=== PATIENT | female | born 1995 | race Caucasian/White ===

== ENCOUNTER 2025-04-14 15:17 | Outpatient (CLI) | payer BC, SELFPAY ==
--- OUTSIDE RECORDS SUMMARY | 2025-04-14 15:27 | XMS RPT_ITS | CCD ---
Author Organization [facility] Care Team Providers Care Wharfmaster Name Role Phone Unavailable Primary Care Provider NATASHA Gilliland MD Primary Care Physician NATASHA VARGAS MD Attending Unavailable NATASHA VARGAS MD Primary Care Unavailable Unavailable Primary Care Provider UnavailJOHANNA Peters Attending Unavailable KRISTIN POLLOCK Referring Unavailable IKE KRISTIN Referring Unavailable POLLOCK KRISTIN Attending Unavailable JOHANNA PAZ Attending Unavailable HENRY SAUCEDA Attending Unavailable POLLOCK, KRISTIN Attending Unavailable IKE, KRISTIN Referring Unavailable JOHANNA PAZ Attending Unavailable VENANCIO POLLOCKSSICA Attending Unavailable POLLOCK KRISTIN Referring Unavailable POLLOCK, KRISTIN Referring Unavailable POLLOCK, KRISTIN Attending Unavailable POLLOCK, KRISTIN Attending Unavailable POLLOCK, KRISTIN Referring Unavailable Medications Current Medications Medication Drug Class(es) Dates Sig (Normalized) Sig (Original) aspirin 81 mg delayed release oral tablet (15 sources) Platelet Aggregation Inhibitor, Nonsteroidal Anti-inflammatory Drug Start: 08-31-2024 take 1 tablet by mouth once daily escitalopram 10 mg oral tablet (1 source) Serotonin Reuptake Inhibitor Start: 01-12-2022 Lexapro 10 mg oral tablet Dose : 10 mg = 1 tab(s), Oral, qDay, # 30 tab(s), 5 Refill(s), Pharmacy: [facility]/pharmacy #[id number], OCD (obsessive compulsive disorder), 170, cm, 01/12/22 9:27:00 EDT, Height Start Date: 01/12/22 Status: Ordered Ibuprofen (1 source) Nonsteroidal Anti-inflammatory Drug Start: 01-12-2022 ibuprofen if needed for pain, 0 Refill(s) Start Date: 01/12/22 Status: Ordered PNV24/Iron Cbn&Gluc/FA/DSS/Dha (PRENATE ORAL) (15 sources) take 1 tablet by mouth once daily PNV24/Iron Cbn&Gluc/FA/DSS/ Dha (PRENATE ORAL) Take 1 tablet by mouth once daily. Active potassium chloride 20 meq extended release oral tablet (1 source) Start: 12-01-2024 take 1 tablet by mouth once daily potassium chloride 20 mEq TbER Take 1 tablet by mouth once daily. 3 tablet 12/01/2024 Active Completed/Discontinued Medications Medication Drug Class(es) Dates Sig (Normalized) Sig (Original) benzonatate 200 mg oral capsule (2 sources) Non-narcotic Antitussive Start: 06-22-2020 End: 11-09-2021 take 1 capsule by mouth three times daily as needed for cough Benzonatate 200 mg capsule Indications: Viral URI with cough Take 1 capsule by mouth three times daily as needed for Cough. 30 capsule 0 06/22/2020 11/09/2021 Discontinued (Course of therapy completed) Comment on above: Take 1 capsule by [facility] three times daily as needed for Cough. famotidine 20 mg oral tablet (3 sources) Histamine-2 Receptor Antagonist Start: 10-01-2024 End: 10-26-2024 take 1 tablet by mouth twice daily famotidine (PEPCID) 20 mg tablet Take 1 tablet by mouth two times a day. 60 tablet 1 10/01/2024 10/26/2024 Discontinued (Course of therapy completed) predniSONE 20 mg oral tablet (1 source) Start: 06-22-2020 End: 06-27-2020 take 2 tablets by mouth once daily predniSONE (DELTASONE) 20 mg tablet Indications: Viral URI with cough Take 2 tablets by mouth once daily for 5 days. 10 tablet 0 06/22/2020 06/27/2020 Active Comment on above: Take 2 tablets by mo [facility] once daily for 5 days. triamcinolone acetonide 0.47524 mg/mg topical ointment (1 source) Corticosteroid Start: 05-10-2023 End: 08-31-2024 triamcinolone (KENALOG) 0.025 % ointment Apply to affected area two times a day. For 14-30 days then PRN for discomfort 15 g 1 05/10/2023 08/31/2024 Discontinued (Course of therapy completed) Problems Active Problems Problem Classification Problem Date Documented Date Episodic/Chronic Abdominal pain (2 sources) Right lower quadrant pain; Translations: [Right lower quadrant pain] Onset: 11-30-2024 11-30-2024 Episodic Anxiety disorders (20 sources) Anxiety; Translations: [Obsessive-compulsive disorder] Onset: 01-10-2022 01-12-2022 Chronic Esophageal disorders (3 sources) Gastroesophageal reflux disease; Translations: [Gastro-esophageal reflux disease without esophagitis] Onset: 01-10-2022 09-01-2021 Chronic Immunizations and screening for infectious disease (6 sources) Patient encounter status; Translations: [Encounter for screening for infections with a predominantly sexual mode of transmission] Episodic Malaise and fatigue (2 sources) Other fatigue; Translations: [Other fatigue] Onset: 01-10-2022 Episodic Other complications of (4 sources) Gestational age unknown ; Translations: [Encounter for supervision of normal , unspecified, unspecified trimester] 08-31-2024 Episodic Other complications of (13 sources) RhD negative; Translations: [Other specified related conditions, second trimester] Onset: 10-06-2024 10-06-2024 Episodic Other complications of (1 source) Other specified related conditions, unspecified trimester; Translations: [Rh negative state in antepartum period (HCC)] Onset: 01-18-2025 Episodic Other female genital disorders (15 sources) Dyspareunia; Translations: [Other specified dyspareunia] Onset: 05-07-2023 05-07-2023 Chronic Other nutritional; endocrine; and metabolic disorders (2 sources) Abnormal weight gain; Translations: [Abnormal weight gain] Onset: 01-10-2022 Episodic Other and delivery including normal (20 sources) Normal ; Translations: [Encounter for supervision of normal first , first trimester] Onset: 08-31-2024 08-31-2024 Episodic Other screening for suspected conditions (not mental disorders or infectious disease) (4 sources) Cancer cervix screening status; Translations: [Encounter for screening for malignant neoplasm of cervix] Onset: 10-01-2024 Episodic Other skin disorders (2 sources) Nonscarring hair loss, unspecified; Translations: [Nonscarring hair loss, unspecified] Onset: 01-10-2022 Episodic Other upper respiratory infections (1 source) Viral upper respiratory tract infection; Translations: [Viral URI with cough] Episodic Residual codes; unclassified (1 source) Gestation period, 12 weeks; Translations: [12 weeks gestation of ] 10-01-2024 Episodic Residual codes; unclassified (1 source) Gestation period, 15 weeks; Translations: [15 weeks gestation of ] 10-26-2024 Episodic Residual codes; unclassified (2 sources) Gestation period, 19 weeks; Translations: [19 weeks gestation of ] 11-23-2024 Episodic Residual codes; unclassified (1 source) Gestation period, 20 weeks; Translations: [20 weeks gestation of ] 11-30-2024 Episodic Residual codes; unclassified (1 source) Gestation period, 23 weeks; Translations: [23 weeks gestation of ] 12-21-2024 Episodic Residual codes; unclassified (1 source) 32 weeks gestation of ; Translations: [32 weeks gestation of (HCC)] Onset: 02-17-2025 Episodic Residual codes; unclassified (1 source) 29 weeks gestation of ; Translations: [29 weeks gestation of (HCC)] Onset: 02-02-2025 Episodic Residual codes; unclassified (1 source) 23 weeks gestation of ; Translations: [23 weeks gestation of (HCC)] Onset: 01-26-2025 Episodic Residual codes; unclassified (2 sources) Unspecified blood type, Rh negative; Translations: [Rh negative state in antepartum period ([facility])] Onset: 10-06-2024 Episodic Residual codes; unclassified (1 source) 20 weeks gestation of ; Translations: [20 weeks gestation of ([facility])] Onset: 11-30-2024 Episodic Residual codes; unclassified (1 source) 19 weeks gestation of ; Translations: [19 weeks gestation of ([facility])] Onset: 11-23-2024 Episodic Unclassified (1 source) Patient encounter status 09-01-2021 Unclassified (15 sources) [facility] Education - COMMON Onset: 08-31-2024 08-31-2024 Unclassified (15 sources) Education - [place] Onset: 08-31-2024 08-31-2024 Past or Other Problems Problem Classification Problem Date Documented Date Episodic/Chronic Genitourinary symptoms and ill-defined conditions (15 sources) Increased frequency of urination; Translations: [Frequency of micturition] Onset: 05-07-2023 Resolved: 10-06-2024 05-07-2023 Episodic Other complications of (1 source) Other specified related conditions, second trimester; Translations: [Rh negative state in antepartum period, second trimester ([facility])] Onset: 10-06-2024 Episodic Other female genital disorders (15 sources) Vaginal discharge; Translations: [Other specified noninflammatory disorders of vagina] Onset: 05-07-2023 Resolved: 08-31-2024 08-31-2024 Episodic Other female genital disorders (15 sources) Pruritus of vagina; Translations: [Other specified noninflammatory disorders of vagina] Onset: 05-07-2023 Resolved: 08-31-2024 08-31-2024 Episodic Residual codes; unclassified (16 sources) Gestation period, 7 weeks; Translations: [Less than 8 weeks gestation of ] Onset: 08-31-2024 Resolved: 10-06-2024 08-31-2024 Episodic Residual codes; unclassified (1 source) 15 weeks gestation of ; Translations: [15 weeks gestation of ([facility])] Onset: 10-26-2024 Episodic Residual codes; unclassified (1 source) 12 weeks gestation of ; Translations: [12 weeks gestation of ([facility])] Onset: 10-01-2024 Episodic Screening and history of mental health and substance abuse codes (20 sources) H/O: depression; Translations: [Personal history of other mental and behavioral disorders] Onset: 08-31-2024 08-31-2024 Episodic Results Test Name Value Interpretation Reference Range Facility [facility] 01-27-2025 CNNURSE Nurse Visit (OBGYWM) LYNETTE NORRIS ([id number]) 1995 F Date Time Provider Department 01/27/25 11:30 AM NURSE [facility] During your visit today, we recorded the following information about you: Blood pressure 128/82 Nan Bass, RN 01/27/2025 11:45 AM Signed Lynette Norris 29 year old is here for her injection of Rhophylac. Lynette Norris Antibody Screen (no units) Date Value 01/26/2025 Negative Lynette Norris is RH Negative Rhophylac was given without incident. See immunizations for details of immunizations administered today. Provider Margoth Arndt MD was present in office at time of injection Lynette Norris was given her Rhophylac pocket card. Nan Bass RN Allergies As of Date: 01/27/2025 (No Known Allergies) Date Reviewed: 01/18/2025 Reviewed by: Nolvia Trejo LPN - Fully Assessed Primary Visit Diagnosis:Rh negative state in antepartum period ([facility]) [O26.899, Z67.91] Prescriptions as of 01/27/2025 - aspirin, enteric coated (ECOTRIN LOW STRENGTH) 81 mg EC tablet Take 1 tablet by mouth once daily. - PNV24/Iron CbnANDGluc/FA/DSS/Dh a (PRENATE ORAL) Take 1 tablet by mouth once daily. Facility-Administere d Medications as of 01/27/2025 - RhoD immune globulin 300 mcg injection (RHOPHYLAC) Problem List As Of Date 01/27/2025 Noted Resolved Urinary frequency [R35.0] 05/07/2023 10/06/2024 Other specified dyspareunia [N94.19] 05/07/2023 Vaginal discharge [N89.8] 05/07/2023 08/31/2024 Vaginal itching [N89.8] 05/07/2023 08/31/2024 Generalized anxiety disorder [F41.1] OCD (obsessive compulsive disorder) [F42.9] History of depression [Z86.59] 08/31/2024 Encounter for supervision of normal i*08/31/2024 7 weeks gestation of ([facility]) [Z3A.01] 08/31/2024 10/06/2024 Rh negative state in antepartum period, second *10/06/2024 Encounter Status:Closed by NAN BASS on 01/27/25 Normal [facility] 01-27-2025 [facility] Telephone (OBGYWM) NORRISLYNETTE COVINGTON ([id number]) 1995 F Date Time Provider Department 01/27/25 NAN MARCANO OBBOLIVARWTio During your visit today, we recorded the following information about you: Nan Bass RN 01/27/2025 8:12 AM Signed Patient coming in today to receive Rhogam as a nurse visit. Please file pending order in CP's absence. Thank you. Nan Bass RN Allergies As of Date: 01/27/2025 (No Known Allergies) Date Reviewed: 01/18/2025 Reviewed by: Nolvia Trejo LPN - Fully Assessed Reason for Visit: Orders [681] Cmt: Rhogam Primary Visit Diagnosis:Rh negative state in antepartum period (HCC) [O26.899, Z67.91] Order(s):RhoD immune globulin 300 mcg injection (RHOPHYLAC)Disp: Rfl: Prescriptions as of 01/27/2025 - aspirin, enteric coated (ECOTRIN LOW STRENGTH) 81 mg EC tablet Take 1 tablet by mouth once daily. - PNV24/Iron CbnANDGluc/FA/DSS/Dh a (PRENATE ORAL) Take 1 tablet by mouth once daily. Facility-Administere d Medications as of 01/27/2025 - RhoD immune globulin 300 mcg injection (RHOPHYLAC) - RhoD immune globulin 300 mcg injection (RHOPHYLAC) Problem List As Of Date 01/27/2025 Noted Resolved Urinary frequency [R35.0] 05/07/2023 10/06/2024 Other specified dyspareunia [N94.19] 05/07/2023 Vaginal discharge [N89.8] 05/07/2023 08/31/2024 Vaginal itching [N89.8] 05/07/2023 08/31/2024 Generalized anxiety disorder [F41.1] OCD (obsessive compulsive disorder) [F42.9] History of depression [Z86.59] 08/31/2024 Encounter for supervision of normal i*08/31/2024 7 weeks gestation of (HCC) [Z3A.01] 08/31/2024 10/06/2024 Rh negative state in antepartum period, second *10/06/2024 Prescriptions ordered this encounter Disp Refills Start End RHO(D) IMMUNE GLOBULIN 1,500 UNIT (3* 01/27/2025 02/26/2025 Route: IM Encounter Status:Closed by NAN BASS on 01/27/25 Normal [facility] CBC panel Auto (Bld)on 01-26 Erythrocyte distribution width (RBC) [Ratio] 12.8 % Normal 11.5-15.0 [facility] Comment on above: Order Comment: Speci larry Type: BLOOD SPECIMENOrdering Facility: [facility] Address: [address] [place] [address] Performed By: #### 5 8410-2 ####[facility] [id number] [place] [address] [place] Hematocrit (Bld) [Volume fraction] 35.8 % Low 36.0-46.0 [facility] Comment on above: Order Comment: Hazel juarez Type: BLOOD SPECIMENOrdering Facility: [facility] Address: [address] [place] [address] Performed By: #### 5 8410-2 ####[facility] [id number] [place] [address] [place] Hemoglobin (Bld) [Mass/Vol] 12.7 g/dL Normal 11.5-15.5 [facility] Comment on above: Order Comment: Hectori larry Type: BLOOD SPECIMENOrdering Facility: [facility] Address: [address] [place] [address] Performed By: #### 5 8410-2 ####[facility] [id number] [place] [address] [place] MCH (RBC) [Entitic mass] 32.3 pg Normal 26.0-34.0 [facility] Comment on above: Order Comment: Speci men Type: BLOOD SPECIMENOrdering Facility: [facility] Address: [address] [place] [address] Performed By: #### 5 8410-2 ####[facility] MIRAMARNCRADHA [id number] [place] [address] [place] MCHC (RBC) [Mass/Vol] 35.5 g/dL Normal 30.5-36.0 [facility] Comment on above: Order Comment: Speci men Type: BLOOD SPECIMENOrdering Facility: [facility] Address: [address] [place] [address] Performed By: #### 5 8410-2 ####[facility] MIRAMARMORYadira [id number] [place] [address] [place] MCV (RBC) [Entitic vol] 91.1 fL Normal 80.0-100.0 [facility] Comment on above: Order Comment: Speci men Type: BLOOD SPECIMENOrdering Facility: [facility] Address: [address] [place] [address] Performed By: #### 5 8410-2 ####[facility]AMARNCCAST[facility] [id number] [place] [address] [place] Nucleated RBC (Bld) [#/Vol] 10*3/uL Normal <0.01 [facility] Comment on above: Order Comment: Speci men Type: BLOOD SPECIMENOrdering Facility: [facility] Address: [address] [place] [address] Performed By: #### 5 8410-2 ####[facility] MIRAMARNCLI [id number] [place] [address] [place] Platelet mean volume (Bld) [Entitic vol] 9.5 fL Normal 9.0-12.7 [facility] Comment on above: Order Comment: Speci men Type: BLOOD SPECIMENOrdering Facility: [facility] Address: [address] [place] [address] Performed By: #### 5 8410-2 ####[facility] BRUCENCLIA [id number] [place] [address] [place] Platelets (Bld) [#/Vol] 218 10*3/uL Normal 150-400 [facility] Comment on above: Order Comment: Speci men Type: BLOOD SPECIMENOrdering Facility: [facility] Address: [address] [place] [address] Performed By: #### 5 8410-2 ####[facility] MIRAMARNCLIA [id number] [place] [address] [place] RBC (Bld) [#/Vol] 3.93 10*6/uL Normal 3.90-5.20 [facility] Comment on above: Order Comment: Speci men Type: BLOOD SPECIMENOrdering Facility: [facility] Address: [address] [place] [address] Performed By: #### 5 8410-2 ####[facility] MIRAMARNCLIA [id number] [place] [address] [place] WBC (Bld) [#/Vol] 9.05 10*3/uL Normal 3.70-11.00 [facility] Comment on above: Order Comment: Speci men Type: BLOOD SPECIMENOrdering Facility: [facility] Address: [address] [place] [address] Performed By: #### 5 8410-2 ####[facility] MIRAMARNCLIA [id number] [place] [address] [place] CNNURSEon 01-26-2025 CNNURSE Nurse Visit (OBGYWM) LYNETTE NORRIS ([id number]) 1995 F Date Time Provider Department 01/26/25 9:00 AM NURSE SURGICAL [facility] OBGYWM During your visit today, we recorded the following information about you: Nan Bass RN 01/26/2025 9:19 AM Signed Lynette Rolando Norris 29 year old is here for her injection of Rhophylac. Patient would like to wait until we have received her Type and Screen results before receiving Rhophylac. Patient had bleeding in her 1st and 2nd trimester. Dr. Arndt sent patient a [employer] message on 01/18/25 stating that if she had been sensitized it wouldn't cause any harm, but there would be no benefit to receiving the Rhophlac. Patient will wait for our call tomorrow and then reschedule nurse visit. Nan Bass RN Allergies As of Date: 01/26/2025 (No Known Allergies) Date Reviewed: 01/18/2025 Reviewed by: Nolvia Trejo LPN - Fully Assessed Reason for Visit: Nurse Visit [792] Cmt: Rhophylac - NOT GIVEN TODAY Primary Visit Diagnosis:Rh negative state in antepartum period (HCC) [O26.899, Z67.91] Prescriptions as of 01/26/2025 - aspirin, enteric coated (ECOTRIN LOW STRENGTH) 81 mg EC tablet Take 1 tablet by mouth once daily. - PNV24/Iron CbnANDGluc/FA/DSS/Dh a (PRENATE ORAL) Take 1 tablet by mouth once daily. Facility-Administere d Medications as of 01/26/2025 - RhoD immune globulin 300 mcg injection (RHOPHYLAC) Problem List As Of Date 01/26/2025 Noted Resolved Urinary frequency [R35.0] 05/07/2023 10/06/2024 Other specified dyspareunia [N94.19] 05/07/2023 Vaginal discharge [N89.8] 05/07/2023 08/31/2024 Vaginal itching [N89.8] 05/07/2023 08/31/2024 Generalized anxiety disorder [F41.1] OCD (obsessive compulsive disorder) [F42.9] History of depression [Z86.59] 08/31/2024 Encounter for supervision of normal i*08/31/2024 7 weeks gestation of (HCC) [Z3A.01] 08/31/2024 10/06/2024 Rh negative state in antepartum period, second *10/06/2024 Encounter Status:Closed by NAN BASS on 01/26/25 Normal [facility] 01-26-2025 CNPN Telephone (OBGYWM) LYNETTE NORRIS ([id number]) 1995 F Date Time Provider Department 01/26/25 HENRY SAUCEDA OBKARON During your visit today, we recorded the following information about you: Nan Bass RN 01/26/2025 8:21 AM Signed Patient is scheduled for a nurse visit for her Rhogam. Can you please file pending order as previous order . Thank you. ALENA Sprague Renee, APRN.CNP 01/26/2025 8:54 AM Signed Filed. ALFRED Mckeon Jennifer, RN 01/26/2025 8:58 AM Signed I apologize, I did not pend both orders. Can you please file. Thank you so much! ALENA Sprague Jennifer, ALENA 01/26/2025 8:58 AM Signed Addended by: NAN BASS on: 01/26/2025 08:58 AM Modules accepted: Ursula Euecda APRN.CNP 01/26/2025 8:59 AM Signed FiledALFRED Cui Renee, APRN.CNP 01/26/2025 8:59 AM Signed Addended by: URSULA PIEDRA on: 01/26/2025 08:59 AM Modules accepted: Orders Allergies As of Date: 01/26/2025 (No Known Allergies) Date Reviewed: 01/18/2025 Reviewed by: Nolvia Trejo LPN - Fully Assessed Reason for Visit: Orders [681] Cmt: Rhogam Primary Visit Diagnosis:28 weeks gestation of (HCC) [Z3A.28] Other Visit Diagnosis:Rh negative state in antepartum period ([facility]) [O26.899, Z67.91] Order(s):THER/PROPH/ DIAG INJ, SC/IM [[id number]] Order #: [id number] RhoD immune globulin 300 mcg injection (RHOPHYLAC)Disp: Rfl: Prescriptions as of 01/26/2025 - aspirin, enteric coated (ECOTRIN LOW STRENGTH) 81 mg EC tablet Take 1 tablet by mouth once daily. - PNV24/Iron CbnANDGluc/FA/DSS/Dh a (PRENATE ORAL) Take 1 tablet by mouth once daily. Facility-Administere d Medications as of 01/26/2025 - RhoD immune globulin 300 mcg injection (RHOPHYLAC) Problem List As Of Date 01/26/2025 Noted Resolved Urinary frequency [R35.0] 05/07/2023 10/06/2024 Other specified dyspareunia [N94.19] 05/07/2023 Vaginal discharge [N89.8] 05/07/2023 08/31/2024 Vaginal itching [N89.8] 05/07/2023 08/31/2024 Generalized anxiety disorder [F41.1] OCD (obsessive compulsive disorder) [F42.9] History of depression [Z86.59] 08/31/2024 Encounter for supervision of normal i*08/31/2024 7 weeks gestation of (HCC) [Z3A.01] 08/31/2024 10/06/2024 Rh negative state in antepartum period, second *10/06/2024 Prescriptions ordered this encounter Disp Refills Start End RHO(D) IMMUNE GLOBULIN 1,500 UNIT (3* 01/26/2025 02/25/2025 Route: IM Encounter Status:Closed by NAN BASS on 01/26/25 Normal [facility] GESTATIONAL GLUCOSE SCREEN, 1-HOUR, 50 GRAM, NON-FASTINGon 01-26-2025 Glucose [Mass/Vol] 86 mg/dL Normal 74-134 [facility] Comment on above: Order Comment: Speci men Type: BLOOD SPECIMENOrdering Facility: [facility] Address: [address] [place] [address] Result Comment: [facility] Congress of Obstetricians and Gynecologists (Dennis/Ritu) guidelines state a gestational diabetes mellitus positive screen is made, in women not previously diagnosed with overt diabetes, when the 1 hr plasma glucose level is equal to or above 140 mg/dL. The [facility] [employer] [facility] recommends a 135 mg/dL cutoff. Performed By: #### G LTGST ####[facility] [id number] [place] [id number] [place] Reagin and Treponema pallidu m IgG and IgM [Interp]on 01-26-2025 T. pallidum IgG+IgM IA Ql (S) Non-Reactive Normal Nonreactive [facility] Comment on above: Order Comment: Speci men Type: BLOOD SPECIMENOrdering Facility: [facility] Address: [address] [place] [address] Performed By: #### 7 3752-8 ####[facility] LABCL[facility] [id number] [place] [address] [place] Reagin+T pallidum IgG+IgM Se rPl-Impon 01-26-2025 Reagin and Treponema pallidum IgG and IgM [Interp] Cannot exclude recent Treponemal infection if specimen collected within 7-10 days after appearance of suspect lesions or 2-3 weeks after an exposure. Clinical correlation is required. Normal [facility] Comment on above: Order Comment: Speci men Type: BLOOD SPECIMENOrdering Facility: [facility] Address: [address] [place] [address] Performed By: #### 7 3752-8 ####[facility] LABCLIA [id number] [place] [address] [place] TYPE + SCREEN PRENATALon ABO A Normal [facility] Comment on above: Order Comment: Speci men Type: BLOOD SPECIMEN Ordering Facility: [facility] Address: [address] [place] [address] Performed By: #### T SPN #### [facility] [facility] CLIA [id number] [address] [place] [address] [place] Rh Nom (Bld) Negative Normal [facility] Comment on above: Order Comment: Speci men Type: BLOOD SPECIMEN Ordering Facility: [facility] Address: [address] [place] [address] Performed By: #### T SPN #### [facility] CLIA [id number] [address] [place] [address] [place] TYPE AND SCREEN EXPIRATION 01/29/2025 23:59 Normal [facility] Comment on above: Order Comment: Speci men Type: BLOOD SPECIMEN Ordering Facility: [facility] Address: [address] [place] [address] Performed By: #### T SPN #### [facility] CLIA [id number] [address] [place] [address] [place] AMYLASEon 11-30-2024 Amylase [Catalytic activity/Vol] 48 U/L 30 - 104 U/L [facility] Amylase SerPl-cCncon 025 Amylase [Catalytic activity/Vol] 48 U/L Normal 30-104 [facility] Comment on above: Order Comment: Speci men Type: BLOOD SPECIMENOrdering Facility: [facility] Address: [address] [place] [address] Performed By: #### 1 798-8, 3040-3 ####[facility] LABCLIA [id number] [place] [address] [place] Amylase [Catalytic activity/ Vol]on 11-30-2024 Interpretation and review of laboratory results Normal [facility] Bacteria Ur Culton Bacteria identified Cx Nom (U) ORGANISM ID: 1 10,000 -<50,000 CFU/ml Normal urogenital butch Normal [facility] Comment on above: Performed By: #### 6 30-4 ####[facility] LABCLIA [id number] [place] [address] [place] CBC W Auto Differential pane l (Bld)on 11-30-2024 Basophils (Bld) [#/Vol] [facility] Basophils/100 WBC (Bld) 0.2 % [facility] Differential cell count method Nom (Bld) Auto [facility] Eosinophils (Bld) [#/Vol] 0.19 10*3/uL [facility] Eosinophils/100 WBC (Bld) 1.8 % [facility] Erythrocyte distribution width (RBC) [Ratio] 13.1 % 11.5 - 15.0 % [facility] Hematocrit (Bld) [Volume fraction] 36.2 % 36.0 - 46.0 % [facility] Hemoglobin (Bld) [Mass/Vol] 12.6 g/dL 11.5 - 15.5 g/dL [facility] Immature granulocytes (Bld) [#/Vol] 0.06 10*3/uL [facility] Immature granulocytes/100 WBC (Bld) 0.6 % [facility] Interpretation and review of laboratory results Abnormal [facility] Lymphocytes (Bld) [#/Vol] 1.93 10*3/uL [facility] Lymphocytes/100 WBC (Bld) 18.1 % [facility] MCH (RBC) [Entitic mass] 31.9 pg 26.0 - 34.0 pg [facility] MCHC (RBC) [Mass/Vol] 34.8 g/dL 30.5 - 36.0 g/dL [facility] MCV (RBC) [Entitic vol] 91.6 fL 80.0 - 100.0 fL [facility] Monocytes (Bld) [#/Vol] 0.94 10*3/uL High [facility] Monocytes/100 WBC (Bld) 8.8 % [facility] Neutrophils (Bld) [#/Vol] 7.53 10*3/uL High [facility] Neutrophils/100 WBC (Bld) 70.5 % [facility] Nucleated RBC (Bld) [#/Vol] NINF [facility] Nucleated RBC/100 WBC (Bld) [Ratio] 0.0 % /100 WBC [facility] Platelet mean volume (Bld) [Entitic vol] 9.4 fL 9.0 - 12.7 fL [facility] Platelets (Bld) [#/Vol] 235 10*3/uL [facility] RBC (Bld) [#/Vol] 3.95 10*6/uL 3.90 - 5.2 0 m/uL [facility] WBC (Bld) [#/Vol] 10.67 10*3/uL [facility] Basophils (Bld) [#/Vol] 10*3/uL Normal <0.11 [facility] Comment on above: Order Comment: Speci men Type: BLOOD SPECIMENOrdering Facility: [facility] Address: [address] [place] [address] Performed By: #### 5 7021-8 ####[facility] [id number] [place] [address] [place] Basophils/100 WBC (Bld) 0.2 % Normal [facility] Comment on above: Order Comment: Speci men Type: BLOOD SPECIMENOrdering Facility: [facility] Address: [address] [place] [address] Performed By: #### 5 7021-8 ####[facility] [id number] [place] [address] [place] Differential cell count method Nom (Bld) Auto Normal [facility] Comment on above: Order Comment: Speci men Type: BLOOD SPECIMENOrdering Facility: [facility] Address: [address] [place] [address] Performed By: #### 5 7021-8 ####[facility] [id number] [place] [address] [place] Eosinophils (Bld) [#/Vol] 0.19 10*3/uL Normal <0.46 [facility] Comment on above: Order Comment: Speci men Type: BLOOD SPECIMENOrdering Facility: [facility] Address: [address] [place] [address] Performed By: #### 5 7021-8 ####[facility] [id number] [place] [address] [place] Eosinophils/100 WBC (Bld) 1.8 % Normal [facility] Comment on above: Order Comment: Speci men Type: BLOOD SPECIMENOrdering Facility: [facility] Address: [address] [place] [address] Performed By: #### 5 7021-8 ####[facility] [id number] [place] [address] [place] Erythrocyte distribution width (RBC) [Ratio] 13.1 % Normal 11.5-15.0 [facility] Comment on above: Order Comment: Speci men Type: BLOOD SPECIMENOrdering Facility: [facility] Address: [address] [place] [address] Performed By: #### 5 7021-8 ####[facility] [id number] [place] [address] [place] Hematocrit (Bld) [Volume fraction] 36.2 % Normal 36.0-46.0 [facility] Comment on above: Order Comment: Speci men Type: BLOOD SPECIMENOrdering Facility: [facility] Address: [address] [place] [address] Performed By: #### 5 7021-8 ####[facility] MIRAMARNCLIA [id number] [place] [address] [place] Hemoglobin (Bld) [Mass/Vol] 12.6 g/dL Normal 11.5-15.5 [facility] Comment on above: Order Comment: Speci men Type: BLOOD SPECIMENOrdering Facility: [facility] Address: [address] [place] [address] Performed By: #### 5 7021-8 ####[facility] MILLTOWNCLIA [id number] [place] [address] [place] Immature granulocytes (Bld) [#/Vol] 0.06 10*3/uL Normal <0.10 [facility] Comment on above: Order Comment: Speci men Type: BLOOD SPECIMENOrdering Facility: [facility] Address: [address] [place] [address] Performed By: #### 5 7021-8 ####[facility]ITALWNCLIA [id number] [place] [address] [place] Immature granulocytes/100 WBC (Bld) 0.6 % Normal [facility] Comment on above: Order Comment: Speci men Type: BLOOD SPECIMENOrdering Facility: [facility] Address: [address] [place] [address] Performed By: #### 5 7021-8 ####[facility] MIRAMARNCLIA [id number] [place] [address] [place] Lymphocytes (Bld) [#/Vol] 1.93 10*3/uL Normal 1.00-4.00 [facility] Comment on above: Order Comment: Speci men Type: BLOOD SPECIMENOrdering Facility: [facility] Address: [address] [place] [address] Performed By: #### 5 7021-8 ####[facility] MILLWNCLIA [id number] [place] [address] [place] Lymphocytes/100 WBC (Bld) 18.1 % Normal [facility] Comment on above: Order Comment: Speci men Type: BLOOD SPECIMENOrdering Facility: [facility] Address: [address] [place] [address] Performed By: #### 5 7021-8 ####[facility] MILLWNCLIA [id number] [place] [address] [place] MCH (RBC) [Entitic mass] 31.9 pg Normal 26.0-34.0 [facility] Comment on above: Order Comment: Speci men Type: BLOOD SPECIMENOrdering Facility: [facility] Address: [address] [place] [address] Performed By: #### 5 7021-8 ####[facility] [id number] [place] [address] [place] MCHC (RBC) [Mass/Vol] 34.8 g/dL Normal 30.5-36.0 [facility] Comment on above: Order Comment: Speci men Type: BLOOD SPECIMENOrdering Facility: [facility] Address: [address] [place] [address] Performed By: #### 5 7021-8 ####[facility] [id number] [place] [address] [place] MCV (RBC) [Entitic vol] 91.6 fL Normal 80.0-100.0 [facility] Comment on above: Order Comment: Speci men Type: BLOOD SPECIMENOrdering Facility: [facility] Address: [address] [place] [address] Performed By: #### 5 7021-8 ####[facility] MIRAMARNCLIA [id number] [place] [address] [place] Monocytes (Bld) [#/Vol] 0.94 10*3/uL High <0.87 [facility] Comment on above: Order Comment: Speci men Type: BLOOD SPECIMENOrdering Facility: [facility] Address: [address] [place] [address] Performed By: #### 5 7021-8 ####[facility] MIRAMARNCLIA [id number] [place] [address] [place] Monocytes/100 WBC (Bld) 8.8 % Normal [facility] Comment on above: Order Comment: Speci men Type: BLOOD SPECIMENOrdering Facility: [facility] Address: [address] [place] [address] Performed By: #### 5 7021-8 ####[facility] [id number] [place] [address] [place] Neutrophils (Bld) [#/Vol] 7.53 10*3/uL High 1.45-7.50 [facility] Comment on above: Order Comment: Speci men Type: BLOOD SPECIMENOrdering Facility: [facility] Address: [address] [place] [address] Performed By: #### 5 7021-8 ####[facility] [id number] [place] [address] [place] Neutrophils/100 WBC (Bld) 70.5 % Normal [facility] Comment on above: Order Comment: Speci men Type: BLOOD SPECIMENOrdering Facility: [facility] Address: [address] [place] [address] Performed By: #### 5 7021-8 ####[facility] [id number] [place] [address] [place] Nucleated RBC (Bld) [#/Vol] 10*3/uL Normal <0.01 [facility] Comment on above: Order Comment: Speci men Type: BLOOD SPECIMENOrdering Facility: [facility] Address: [address] [place] [address] Performed By: #### 5 7021-8 ####[facility] [id number] [place] [address] [place] Nucleated RBC/100 WBC (Bld) [Ratio] 0.0 /100 WBC Normal [facility] Comment on above: Order Comment: Speci men Type: BLOOD SPECIMENOrdering Facility: [facility] Address: [address] [place] [address] [place] [address] Performed By: #### 5 7021-8 ####[facility] DEANGELOA [id number] [place] [address] [place] Platelet mean volume (Bld) [Entitic vol] 9.4 fL Normal 9.0-12.7 [facility] Comment on above: Order Comment: Speci men Type: BLOOD SPECIMENOrdering Facility: [facility] Address: [address] [place] [address] Performed By: #### 5 7021-8 ####[facility] [id number] [place] [address] [place] Platelets (Bld) [#/Vol] 235 10*3/uL Normal 150-400 [facility] Comment on above: Order Comment: Speci men Type: BLOOD SPECIMENOrdering Facility: [facility] Address: [address] [place] [address] Performed By: #### 5 7021-8 ####[facility] MIRAMARNCLIA [id number] [place] [address] [place] RBC (Bld) [#/Vol] 3.95 10*6/uL Normal 3.90-5.20 [facility] Comment on above: Order Comment: Speci men Type: BLOOD SPECIMENOrdering Facility: [facility] Address: [address] [place], [place] [address] Performed By: #### 5 7021-8 ####[facility] MIRAMARMORLIA [id number] [place] [address] [place] WBC (Bld) [#/Vol] 10.67 10*3/uL Normal 3.70-11.00 [facility] Comment on above: Order Comment: Speci men Type: BLOOD SPECIMENOrdering Facility: [facility] Address: [address] [place] [address] Performed By: #### 5 7021-8 ####[facility] [id number] [address] [facility] Ismael 11-30-2024 CNPN Telephone (OBGYWM) NORRISLYNETTE COVINGTON ([id number]) 1995 F Date Time Provider Department 11/30/24 KRISTIN POLLOCK During your visit today, we recorded the following information about you: Ania Clarke RN 11/30/2024 11:33 AM Signed 20w5d Calling c/o RLQ pain. Stated that she has had it in the past and thought it was gas pains because gas-x usually helps. This morning it has not helped and seems worse than before. Does feel like she needs to pass gas at times, but can't. She was able to have small BM this morning though. Hurts worse with palpation and up and moving. Rates 7/10 at it's worse. No fever, bleeding or other concerns. No available appt as of now. Please advise. ALENA Corbett Jessica, APRN.JR 11/30/2024 12:20 PM Signed Can see her at 3pm if that works for her. Thank you, Kristin Pollock APRN.Ania Bob RN 11/30/2024 12:28 PM Signed Patient notified and scheduled. Ania Clarke RN Allergies As of Date: 11/30/2024 (No Known Allergies) Date Reviewed: 11/23/2024 Reviewed by: Prudence Crane MA - Fully Assessed Reason for Visit: Pelvic Pain [282] Prescriptions as of 11/30/2024 - aspirin, enteric coated (ECOTRIN LOW STRENGTH) 81 mg EC tablet Take 1 tablet by mouth once daily. - PNV24/Iron CbnANDGluc/FA/DSS/Dh a (PRENATE ORAL) Take 1 tablet by mouth once daily. Problem List As Of Date 11/30/2024 Noted Resolved Urinary frequency [R35.0] 05/07/2023 10/06/2024 Other specified dyspareunia [N94.19] 05/07/2023 Vaginal discharge [N89.8] 05/07/2023 08/31/2024 Vaginal itching [N89.8] 05/07/2023 08/31/2024 Generalized anxiety disorder [F41.1] OCD (obsessive compulsive disorder) [F42.9] History of depression [Z86.59] 08/31/2024 Encounter for supervision of normal i*08/31/2024 7 weeks gestation of (HCC) [Z3A.01] 08/31/2024 10/06/2024 Rh negative state in antepartum period, second *10/06/2024 Encounter Status:Closed by ANIA CLARKE on 11/30/24 Normal [facility] Comprehensive metabolic 2000 panelOrdered By: Alisa Fitzpatrick on 11-30-2024 Albumin [Mass/Vol] 4.0 g/dL 3.9 - 4.9 g/dL [facility] ALP [Catalytic activity/Vol] 74 U/L 34 - 123 U/L [facility] ALT [Catalytic activity/Vol] 13 U/L 7 - 38 U/L [facility] Anion gap [Moles/Vol] 12 mmol/L 8 - 15 mmol/L [facility] AST [Catalytic activity/Vol] 15 U/L 13 - 35 U/L [facility] Bilirubin [Mass/Vol] 0.3 mg/dL 0.2 - 1 .3 mg/dL [facility] Calcium [Mass/Vol] 9.0 mg/dL 8.5 - 10. 2 mg/dL [facility] Chloride [Moles/Vol] 103 mmol/L 98 - 10 7 mmol/L [facility] CO2 [Moles/Vol] 21 mmol/L Low 22 - 30 mmol/L [facility] Creatinine [Mass/Vol] 0.66 mg/dL 0.58 - 0.96 mg/dL [facility] GFR/1.73 sq M.predicted among non-blacks MDRD (S/P/Bld) [Vol rate/Area] 123 mL/min/{1.73_m2} - PINF [facility] Comment on above: Estimated Glomerular Filtration Rate (eGFR) is calculated using the 202 CKD-EPI creatinine equation. This equation utilizes serum creatinine, sex, and age as parameters. The creatinine assay has traceable calibration to isotope dilution-mass spectrometry. Refer to KDIGO guidelines for clinical interpretation. In patients with unstable renal function, e.g. those with acute kidney injury, the eGFR may not accurately reflect actual GFR. Glucose [Mass/Vol] 80 mg/dL 74 - 99 mg/dL [facility] Comment on above: The [place] Di[employer] Association (ADA) provides guidance for cutoff values for fasting glucose and random glucose. The ADA defines fasting as no caloric intake for at least 8 hours. Fasting plasma glucose results between 100 to 125 mg/dL indicate increased risk for diabetes (prediabetes). Fasting plasma glucose results greater than or equal to 126 mg/dL meet the criteria for diagnosis of diabetes. In the absence of unequivocal hyperglycemia, results should be confirmed by repeat testing. In a patient with classic symptoms of hyperglycemia or hyperglycemic crisis, random plasma glucose results greater than or equal to 200 mg/dL meet the criteria for diagnosis of diabetes. Reference: Standards of Medical Care in Diabetes 2016, [place] [employer]. Diabetes Care. 2016.39(Suppl 1). Interpretation and review of laboratory results Abnormal [facility] Potassium [Moles/Vol] 3.4 mmol/L Low 3.7 - 5.1 mmol/L [facility] Protein [Mass/Vol] 6.9 g/dL 6.3 - 8.0 g/dL [facility] Sodium [Moles/Vol] 136 mmol/L 136 - 144 mmol/L [facility] Urea nitrogen [Mass/Vol] 10 mg/dL 7 - 21 mg/dL [facility] Comprehensive metabolic 2000 panelon 11-30-2024 Albumin [Mass/Vol] 4.0 g/dL Normal 3.9-4.9 [facility] Comment on above: Order Comment: Speci men Type: BLOOD SPECIMENOrdering Facility: [facility] Address: [address] [place] [address] Performed By: #### 2 4323-8 ####[facility] [id number] [place] [address] [place] ALP [Catalytic activity/Vol] 74 U/L Normal 34-123 [facility] Comment on above: Order Comment: Speci men Type: BLOOD SPECIMENOrdering Facility: [facility] Address: [address] [place] [address] Performed By: #### 2 4323-8 ####[facility] MILLTOWNCLIA [id number] [place] [address] [place] ALT [Catalytic activity/Vol] 13 U/L Normal 7-38 [facility] Comment on above: Order Comment: Speci men Type: BLOOD SPECIMENOrdering Facility: [facility] Address: [address] [place] [address] Performed By: #### 2 4323-8 ####[facility]ITALWNCLIA [id number] [place] [address] [place] Anion gap [Moles/Vol] 12 mmol/L Normal 8-15 [facility] Comment on above: Order Comment: Speci men Type: BLOOD SPECIMENOrdering Facility: [facility] Address: [address] [place] [address] Performed By: #### 2 4323-8 ####[facility]IP[facility] HOS[facility]ITALWNCLIA [id number] [place] [address] [place] AST [Catalytic activity/Vol] 15 U/L Normal 13-35 [facility] Comment on above: Order Comment: Speci men Type: BLOOD SPECIMENOrdering Facility: [facility] Address: [address] [place] [address] Performed By: #### 2 4323-8 ####[facility] CH[facility] MILLANSONVILLENCLIA [id number] [place] [address] [place] Bilirubin [Mass/Vol] 0.3 mg/dL Normal 0.2-1.3 [facility] Comment on above: Order Comment: Speci men Type: BLOOD SPECIMENOrdering Facility: [facility] Address: [address] [place] [address] Performed By: #### 2 4323-8 ####[facility] MILLTOWNCLIA [id number] [place] [address] [place] Calcium [Mass/Vol] 9.0 mg/dL Normal 8.5-10.2 [facility] Comment on above: Order Comment: Speci men Type: BLOOD SPECIMENOrdering Facility: [facility] Address: [address] [place] [address] Performed By: #### 2 4323-8 ####[facility] MILLTOWNCLIA [id number] [place] [address] [place] Chloride [Moles/Vol] 103 mmol/L Normal 98-107 [facility] Comment on above: Order Comment: Speci men Type: BLOOD SPECIMENOrdering Facility: [facility] Address: [address] [place] [address] Performed By: #### 2 4323-8 ####[facility] MILLTOWNCLIA [id number] [place] [address] [place] CO2 [Moles/Vol] 21 mmol/L Low 22-30 [facility] Comment on above: Order Comment: Speci men Type: BLOOD SPECIMENOrdering Facility: [facility] Address: [address] [place] [address] Performed By: #### 2 4323-8 ####[facility] MILLTOWNCLIA [id number] [place] [address] [place] Creatinine [Mass/Vol] 0.66 mg/dL Normal 0.58-0.96 [facility] Comment on above: Order Comment: Speci men Type: BLOOD SPECIMENOrdering Facility: [facility] Address: [address] [place] [address] Performed By: #### 2 4323-8 ####[facility] MILLTOWNCLIA [id number] [place] [address] [place] eGFRcr SerPlBld CKD-EPI 2020 123 mL/min/1.73m??? Normal >=60 [facility] Comment on above: Order Comment: Hazel juarez Type: BLOOD SPECIMENOrdering Facility: [facility] Address: [address] [place] [address] Result Comment: Yamilet mated Glomerular Filtration Rate (eGFR) is calculated using the 2020 CKD-EPI creatinine equation. This equation utilizes serum creatinine, sex, and age as parameters. The creatinine assay has traceable calibration to isotope dilution-mass spectrometry. Refer to KDIGO guidelines for clinical interpretation. In patients with unstable renal function, e.g. those with acute kidney injury, the eGFR may not accurately reflect actual GFR. Performed By: #### 2 4323-8 ####[facility] [id number] [place] [address] [place] Glucose [Mass/Vol] 80 mg/dL Normal 74-99 [facility] Comment on above: Order Comment: Hazel juarez Type: BLOOD SPECIMENOrdering Facility: [facility] Address: [address] [place] [address] Result Comment: The [place] Diabetes Association (ADA) provides guidance for cutoff values for fasting glucose and random glucose. The ADA defines fasting as no caloric intake for at least 8 hours. Fasting plasma glucose results between 100 to 125 mg/dL indicate increased risk for diabetes (prediabetes). Fasting plasma glucose results greater than or equal to 126 mg/dL meet the criteria for diagnosis of diabetes. In the absence of unequivocal hyperglycemia, results should be confirmed by repeat testing. In a patient with classic symptoms of hyperglycemia or hyperglycemic crisis, random plasma glucose results greater than or equal to 200 mg/dL meet the criteria for diagnosis of diabetes. Reference: Standards of Medical Care in Diabetes 2016, [place] [employer]. Diabetes Care. 2016.39(Suppl 1). Performed By: #### 2 4323-8 ####[facility] [id number] [place] [address] [place] Potassium [Moles/Vol] 3.4 mmol/L Low 3.7-5.1 [facility] Comment on above: Order Comment: Speci men Type: BLOOD SPECIMENOrdering Facility: [facility] Address: [address] [place] [address] Performed By: #### 2 4323-8 ####[facility] [facility] [id number] [place] [address] [place] Protein [Mass/Vol] 6.9 g/dL Normal 6.3-8.0 [facility] Comment on above: Order Comment: Speci men Type: BLOOD SPECIMENOrdering Facility: [facility] Address: [address] [place] [address] Performed By: #### 2 4323-8 ####[facility] [id number] [place] [address] [place] Sodium [Moles/Vol] 136 mmol/L Normal 136-144 [facility] Comment on above: Order Comment: Speci men Type: BLOOD SPECIMENOrdering Facility: [facility] Address: [address] [place] [address] Performed By: #### 2 4323-8 ####[facility] [id number] [place] [address] [place] Urea nitrogen [Mass/Vol] 10 mg/dL Normal 7-21 [facility] Comment on above: Order Comment: Speci men Type: BLOOD SPECIMENOrdering Facility: [facility] Address: [address] [place] [address] Performed By: #### 2 4323-8 ####[facility] MIRAMARNCLIA [id number] [place] [address] [place] LIPASEon 11-30-2024 Lipase [Catalytic activity/Vol] 14 U/L Low 16 - 61 U/L [facility] Lipase SerPl-cCncon 12-01-19 Lipase [Catalytic activity/Vol] 14 U/L Low 16-61 [facility] Comment on above: Order Comment: Speci men Type: BLOOD SPECIMENOrdering Facility: [facility] Address: [address] [place] [address] Performed By: #### 1 798-8, 3040-3 ####[facility] LABCLIA [id number] [place] [address] [place] Lipase [Catalytic activity/V ol]on 11-30-2024 Interpretation and review of laboratory results Abnormal [facility] No Panel Informationon 11-30 [facility] UA DIP, URINE (POC)on 2024 BILIRUBIN UA (POCT) Negative Negative [facility] CLARITY UA (POCT) Clear [facility] COLOR UA (POCT) Yellow [facility] GLUCOSE UA (POCT) Negative Negative mg/dL [facility] Hemoglobin Ql (U) Negative Negative [facility] Interpretation and review of laboratory results Abnormal [facility] KETONE UA (POCT) Negative Negative mg/dL [facility] LEUKOCYTES UA (POCT) Trace Abnormal Negative [facility] NITRITE UA (POCT) Negative Negative [facility] PH UA (POCT) 7.0 4.5 - 8.0 [facility] Protein Ql (U) Negative Negative mg/dL [facility] SPECIFIC GRAVITY UA (POCT) 1.020 1.005 - 1.030 [facility] UROBILINOGEN UA (POCT) 0.2 Normal E.U./dL [facility] Location:[facility], [address], [place], [place], [id number] [place] [address] POINT OF CARE [facility] Ismael 11-25-2024 CNPN Telephone (OBGYWM) LYNETTE NORRIS ([id number]) 1995 F Date Time Provider Department 11/25/24 KRISTIN POLLOCK During your visit today, we recorded the following information about you: Nan Bass RN 11/25/2024 8:18 AM Signed Received breast pump RX from [employer]. To BERYL to sign. ALENA Sprague Trisha, RN 11/30/2024 3:07 PM Signed Order signed and faxed. Ania Clarke RN Allergies As of Date: 11/25/2024 (No Known Allergies) Date Reviewed: 11/23/2024 Reviewed by: Prudence Crane MA - Fully Assessed Reason for Visit: Breast Pump RX [Other] Prescriptions as of 11/30/2024 - aspirin, enteric coated (ECOTRIN LOW STRENGTH) 81 mg EC tablet Take 1 tablet by mouth once daily. - PNV24/Iron CbnANDGluc/FA/DSS/Dh a (PRENATE ORAL) Take 1 tablet by mouth once daily. Problem List As Of Date 11/25/2024 Noted Resolved Urinary frequency [R35.0] 05/07/2023 10/06/2024 Other specified dyspareunia [N94.19] 05/07/2023 Vaginal discharge [N89.8] 05/07/2023 08/31/2024 Vaginal itching [N89.8] 05/07/2023 08/31/2024 Generalized anxiety disorder [F41.1] OCD (obsessive compulsive disorder) [F42.9] History of depression [Z86.59] 08/31/2024 Encounter for supervision of normal i*08/31/2024 7 weeks gestation of (HCC) [Z3A.01] 08/31/2024 10/06/2024 Rh negative state in antepartum period, second *10/06/2024 Encounter Status:Closed by ANIA CLARKE on 11/30/24 Normal [facility] Examination level ultrasound on 11-23-2024 Indication Standard anatomic survey Impression The patient is referred for a standard anatomic survey. - Single, live, intrauterine . - biometry is consistent with the established gestational age. - No malformations were visualized on a complete standard anatomic survey. - The amniotic fluid volume is normal amount. - The placenta is anterior, fundal. - The Transabdominal cervical length measures 32.5 mm with no evidence of funneling or other dynamic changes. - Not all structural malformations can be detected by ultrasound examination. Recommendations Additional follow-up as clinically indicated. Maternal Assessment Height 170 cm Height (ft) 5 ft Height (in) 7 in Physical Exam Initial weight (lb) 190 lb Initial BMI 29.76 kg/m Maternal assessment other: 1 Para 0 REMOTE READ Method Transabdominal ultrasound examination. View: Adequate visualization Tabares . Number of fetuses: 1 Dating LMP on: 07/08/2024 GA by LMP 19 w + 5 d LEONIDAS by LMP: 04/14/2025 GA by prior assessment 19 w + 5 d LEONIDAS by prior assessment: 04/14/2025 Ultrasound examination on: 11/23/2024 GA by U/S based upon: AC, BPD, Femur, HC GA by U/S 20 w + 4 d LEONIDAS by U/S: 04/08/2025 Assigned: based on stated LEONIDAS, selected on 11/23/2024 Assigned GA 19 w + 5 d Assigned LEONIDAS: 04/14/2025 General Evaluation Cardiac activity present. FHR 143 bpm. movements: present. Presentation: breech Placenta: Placental site: posterior, fundal Umbilical cord: Cord vessels: 3 vessel cord Amniotic fluid: Amount of AF: normal amount. MVP 4.0 cm Growth Overview Exam date GA BPD (mm) HC (mm) AC (mm) FL (mm) HL (mm) EFW (g) 11/23/2024 19w 5d 48.2 83% 181.5 75% 168.3 95% 29.9 47% 29.7 54% 368 90% Biometry Standard BPD 48.2 mm 20w 4d 83% Hadlock OFD 64.7 mm 20w 4d 96% Nicolaides HC 181.5 mm 20w 4d 75% Rosario Cerebellum tr 20.4 mm 19w 4d 62% Hill Nuchal fold 5.0 mm AC 168.3 mm 21w 6d 95% Hadlock Femur 29.9 mm 19w 3d 47% Rosario Humerus 29.7 mm 19w 5d 54% Rosario EFW 368 g 20w 4d 90% Hadlock EFW (lb) 0 lb EFW (oz) 13 oz EFW by: Hadlock (HC-AC-FL) Extended Carboy Filler 6.3 mm CM 3.6 mm 12% Nicolaides Extremities / Bony Struc FL / HC 0.16 <1% Hadlock Other Structures FHR 143 bpm Anatomy Cranium: normal Lateral ventricles: normal Choroid plexus: normal Midline falx: normal Cavum septi pellucidi: normal Cerebellum: normal Cisterna magna: normal Head / Neck Vermis: Normal but not required for a standard anatomy exam Neck: Normal but not required for a standard anatomy exam Nuchal fold: Normal but not required for a standard anatomy exam Lips: normal Profile: Normal but not required for a standard anatomy exam Nose: Normal but not required for a standard anatomy exam Face Maxilla: Normal but not required for a standard anatomy exam Mandible: Normal but not required for a standard anatomy exam Orbits: Normal but not required for a standard anatomy exam Lens: Normal but not required for a standard anatomy exam 4-chamber view: normal RVOT view: normal LVOT view: normal 3-vessel view: normal 7-mjlhln-gguacpd view: normal Heart / Thorax Situs: situs solitus (normal) Aortic arch view: Normal but not required for a standard anatomy exam SVC: Normal but not required for a standard anatomy exam IVC: Normal but not required for a standard anatomy exam Cardiac axis: normal Rt lung: Normal but not required for a standard anatomy exam Lt lung: Normal but not required for a standard anatomy exam Diaphragm: normal Cord insertion: normal Stomach: normal Kidneys: normal Bladder: normal Genitals: normal Abdomen Abdom. wall: normal Cervical spine: normal Thoracic spine: normal Lumbar spine: normal Sacral spine: normal Arms: normal Legs: normal Rt upper arm: normal Rt forearm: normal Rt hand: normal Rt fingers: normal Lt upper arm: normal Lt forearm: normal Lt hand: normal Lt fingers: normal Rt upper leg: normal Rt lower leg: normal Rt foot: normal Lt upper leg: normal Lt lower leg: normal Lt foot: normal sex: male Wants to know sex: yes Maternal Structures Uterus / Cervix Uterus: Visualized Cervix: Visualized Approach: Transabdominal Cervical length 32.5 mm Other: Patient declined transvaginal ultrasound for cervical length. Ovaries / Tubes / Adnexa Rt ovary: Not visualized Lt ovary: Visualized Performed By: Rachael Persaud RDMS, RVT Read By: Daily [place], M.D. MATERNAL MEDICINE [facility] Radiology Study observation (narrative) [facility] Bacteria Ur Culton Bacteria identified Cx Nom (U) ORGANISM ID: 1 10,000 -<50,000 CFU/ml Normal urogenital butch Normal [facility] Comment on above: Performed By: #### 6 30-4 ####[facility] LABCLIA [id number] [address] CNPBenita 10-06-2024 CNPN Telephone (OBGYWM) LYNETTE NORRIS ([id number]) 1995 F Date Time Provider Department 10/06/24 HENRY SAUCEDA OBKARON During your visit today, we recorded the following information about you: Aurea Neville, ALENA 10/06/2024 9:17 AM Signed 12w6d Pt calls stating she had intercourse last evening. Pt states after intercourse-she was peeing and noted light colored blood on toilet paper. Pt then placed a liner on after. Pt woke up this AM and states liner did have some on it. Did have some intermittent light pink spotting this AM as well; However, the last time she went to the bathroom noted none. Denies abdominal pain. Advised Pt to place pad on and monitor at this time. Advised pt that If her bleeding becomes heavy to where she is saturating a pad (front to back, side to side) in one hour or less for two hours or more, she develops shortness of breath, chest pain, dizziness, or abdominal pain to call the office immediately. Advised Pt that healthy guide would be resent -as it does review intercourse in . Advised Pt that it is common to have vaginal spotting (blood) after intercourse, but to continue to monitor at this time, call office with above concerns or any questions she may have, and to avoid intercourse until the spotting resolves. Pt voiced understanding. Please advise if additional guidance needs given-if not, no need to call Pt. Aurea Neville RN Next OB appt scheduled 10/26/24. Margoth Arndt MD 10/06/2024 10:34 AM Signed agree if below. If recurs offer appt. Margoth Arndt MD Allergies As of Date: 10/06/2024 (No Known Allergies) Date Reviewed: 10/01/2024 Reviewed by: Maxwell Guerrero MA - Fully Assessed Prescriptions as of 10/06/2024 - famotidine (PEPCID) 20 mg tablet Take 1 tablet by mouth two times a day. - aspirin, enteric coated (ECOTRIN LOW STRENGTH) 81 mg EC tablet Take 1 tablet by mouth once daily. - PNV24/Iron CbnANDGluc/FA/DSS/Dh a (PRENATE ORAL) Take 1 tablet by mouth once daily. Problem List As Of Date 10/06/2024 Noted Resolved Urinary frequency [R35.0] 05/07/2023 Other specified dyspareunia [N94.19] 05/07/2023 Vaginal discharge [N89.8] 05/07/2023 08/31/2024 Vaginal itching [N89.8] 05/07/2023 08/31/2024 Generalized anxiety disorder [F41.1] OCD (obsessive compulsive disorder) [F42.9] History of depression [Z86.59] 08/31/2024 Encounter for supervision of normal i*08/31/2024 7 weeks gestation of (HCC) [Z3A.01] 08/31/2024 Encounter Status:Closed by NAN BASS on 10/06/24 Normal [facility] Examination level ultrasound on 10-02-2024 Indication First trimester anatomic survey Impression REMOTE READ The patient is referred for a first trimester anatomy scan including nuchal translucency measurement as clinically indicated. - Single, live, intrauterine . - [place] rump length measurement is consistent with the established gestational age. - A qualitative screen of the nuchal translucency and other anatomic structures was unremarkable on a complete first trimester anatomic assessment. - Not all structural malformations can be detected by ultrasound examination. - An anatomic survey at 18-20 weeks is recommended given no identified risk factors. Recommendations - An anatomic survey at 18-20 weeks given no identified risk factors. - Additional follow up as clinically indicated. Maternal Assessment Height 170 cm Height (ft) 5 ft Height (in) 7 in Physical Exam Initial weight (lb) 190 lb Initial BMI 29.76 kg/m Method Transabdominal ultrasound examination Tabares . Number of fetuses: 1 Dating LMP on: 07/08/2024 GA by LMP 12 w + 1 d LEONIDAS by LMP: 04/14/2025 Ultrasound examination on: 10/01/2024 GA by U/S based upon: CRL GA by U/S 12 w + 4 d LEONIDAS by U/S: 04/11/2025 Assigned: based on the LMP, selected on 08/31/2024 Assigned GA 12 w + 1 d Assigned LEONIDAS: 04/14/2025 General Evaluation Cardiac activity present Placenta: right lateral Cord vessels: 3 vessel cord Amniotic fluid: normal amount Biometry Standard FHR 162 bpm CRL 60.5 mm 12w 4d 66% Hadlock First Trimester Anatomy Calvarium: normal Falx cerebri: normal Choroid plexus: normal Profile: normal Nasal bone: normal Retronasal triangle: normal Maxilla: normal Mandible: normal Nuchal translucency: Unremarkable Situs: normal Cardiac position: normal Cardiac axis: normal 4-chamber view: normal 4-chamber view with color: normal 5-[id number]-qqacexn view: normal Abdominal cord insertion: normal Stomach: normal Kidneys: normal Color doppler of renal vessels: normal Bladder: normal Color doppler of perivesical umbilical arteries: normal Vertebral alignment: normal Arms: normal Hands: normal Legs: normal Feet: normal Maternal Structures Uterus / Cervix Uterus: Visualized Ovaries / Tubes / Adnexa Rt ovary: Visualized Rt ovarian corpus luteum: anechoic Rt ovarian corpus luteum D1 30.0 mm Rt ovarian corpus luteum D2 22.0 mm Rt ovarian corpus luteum D3 32.0 mm Lt ovary: Visualized Performed By: Batsheva Gill RDMS Read By: Medina Dewitt M.D. MATERNAL MEDICINE [facility] CBC W Auto Diff [place] 2024 Erythrocyte distribution width (RBC) [Ratio] 12.6 % Normal 11.5-15.0 [facility] Comment on above: Order Comment: Speci men Type: BLOOD SPECIMENOrdering Facility: [facility] Address: [address] [place], [place] [address] Performed By: #### 5 7021-8 ####[facility] MIRAMARNCLIA [id number] [place] [address] [place] [facility] Performed By: #### L [id number] ####[facility] LABCLIA [id number] [place] [address] [place] CBC W Auto Differential pane l (Bld)on 10-01-2024 Basophils (Bld) [#/Vol] 0.03 10*3/uL Normal <0.11 [facility] Comment on above: Order Comment: Speci men Type: BLOOD SPECIMENOrdering Facility: [facility] Address: [address] [place] [address] Performed By: #### 5 7021-8 ####[facility] MIRAMARNCLIA [id number] [place] [address] [place] Basophils/100 WBC (Bld) 0.3 % Normal [facility] Comment on above: Order Comment: Speci men Type: BLOOD SPECIMENOrdering Facility: [facility] Address: [address] [place] [address] Performed By: #### 5 7021-8 ####[facility] MIRAMARNCLIA [id number] [place] [address] [place] Differential cell count method Nom (Bld) Auto Normal [facility] Comment on above: Order Comment: Speci men Type: BLOOD SPECIMENOrdering Facility: [facility] Address: [address] [place] [address] Performed By: #### 5 7021-8 ####[facility] [id number] [place] [address] [place] Eosinophils (Bld) [#/Vol] 0.08 10*3/uL Normal <0.46 [facility] Comment on above: Order Comment: Speci men Type: BLOOD SPECIMENOrdering Facility: [facility] Address: [address] [place] [address] Performed By: #### 5 7021-8 ####[facility] MIRAMARNEYDAA [id number] [place] [address] [place] Eosinophils/100 WBC (Bld) 0.8 % Normal [facility] Comment on above: Order Comment: Speci men Type: BLOOD SPECIMENOrdering Facility: [facility] Address: [address] [place] [address] Performed By: #### 5 7021-8 ####[facility] [id number] [place] [address] [place] Hematocrit (Bld) [Volume fraction] 37.1 % Normal 36.0-46.0 [facility] Comment on above: Order Comment: Speci men Type: BLOOD SPECIMENOrdering Facility: [facility] Address: [address] [place] [address] Performed By: #### 5 7021-8 ####[facility] [id number] [place] [address] [place] Hemoglobin (Bld) [Mass/Vol] 12.7 g/dL Normal 11.5-15.5 [facility] Comment on above: Order Comment: Speci men Type: BLOOD SPECIMENOrdering Facility: [facility] Address: [address] [place] [address] Performed By: #### 5 7021-8 ####[facility] [id number] [place] [address] [place] Immature granulocytes (Bld) [#/Vol] 0.03 10*3/uL Normal <0.10 [facility] Comment on above: Order Comment: Speci men Type: BLOOD SPECIMENOrdering Facility: [facility] Address: [address] [place] [address] Performed By: #### 5 7021-8 ####[facility] CLAUDIOLIA [id number] [place] [address] [place] Immature granulocytes/100 WBC (Bld) 0.3 % Normal [facility] Comment on above: Order Comment: Speci men Type: BLOOD SPECIMENOrdering Facility: [facility] Address: [address] [place] [address] Performed By: #### 5 7021-8 ####[facility] MIRAMARMORYadira [id number] [place] [address] [place] Lymphocytes (Bld) [#/Vol] 1.95 10*3/uL Normal 1.00-4.00 [facility] Comment on above: Order Comment: Speci men Type: BLOOD SPECIMENOrdering Facility: [facility] Address: [address] [place] [address] Performed By: #### 5 7021-8 ####[facility] [id number] [place] [address] [place] Lymphocytes/100 WBC (Bld) 18.3 % Normal [facility] Comment on above: Order Comment: Speci men Type: BLOOD SPECIMENOrdering Facility: [facility] Address: [address] [place] [address] Performed By: #### 5 7021-8 ####[facility] MIRAMARMORRADHA [id number] [place] [address] [place] MCH (RBC) [Entitic mass] 30.4 pg Normal 26.0-34.0 [facility] Comment on above: Order Comment: Speci men Type: BLOOD SPECIMENOrdering Facility: [facility] Address: [address] [place] [address] Performed By: #### 5 7021-8 ####[facility]ENTERLIA [id number] [place] [address] [place] MCHC (RBC) [Mass/Vol] 34.2 g/dL Normal 30.5-36.0 [facility] Comment on above: Order Comment: Speci men Type: BLOOD SPECIMENOrdering Facility: [facility] Address: [address] [place] [address] Performed By: #### 5 7021-8 ####[facility]ITALWNCLIA [id number] [place] [address] [place] MCV (RBC) [Entitic vol] 88.8 fL Normal 80.0-100.0 [facility] Comment on above: Order Comment: Speci men Type: BLOOD SPECIMENOrdering Facility: [facility] Address: [address] [place] [address] Performed By: #### 5 7021-8 ####[facility] [id number] [place] [address] [place] Monocytes (Bld) [#/Vol] 0.94 10*3/uL High <0.87 [facility] Comment on above: Order Comment: Speci men Type: BLOOD SPECIMENOrdering Facility: [facility] Address: [address] [place] [address] Performed By: #### 5 7021-8 ####[facility] MIRAMARNCLI [id number] [place] [address] [place] Monocytes/100 WBC (Bld) 8.8 % Normal [facility] Comment on above: Order Comment: Speci men Type: BLOOD SPECIMENOrdering Facility: [facility] Address: [address] [place], [place] [address] Performed By: #### 5 7021-8 ####[facility] [id number] [place] [address] [place] Neutrophils (Bld) [#/Vol] 7.62 10*3/uL High 1.45-7.50 [facility] Comment on above: Order Comment: Speci men Type: BLOOD SPECIMENOrdering Facility: [facility] Address: [address] [place] [address] Performed By: #### 5 7021-8 ####[facility] VLADISLAVWMORLIA [id number] [address] [place] Neutrophils/100 WBC (Bld) 71.5 % Normal [facility] Comment on above: Order Comment: Speci men Type: BLOOD SPECIMENOrdering Facility: [facility] Address: [address] [place] [address] Performed By: #### 5 7021-8 ####[facility] MIRAMARMORLIA [id number] [place] [address] [place] Nucleated RBC (Bld) [#/Vol] 10*3/uL Normal <0.01 [facility] Comment on above: Order Comment: Speci men Type: BLOOD SPECIMENOrdering Facility: [facility] Address: [address] [place] [address] Performed By: #### 5 7021-8 ####[facility] MIRAMARMORLIA [id number] [place] [address] [place] Nucleated RBC/100 WBC (Bld) [Ratio] 0.0 /100 WBC Normal [facility] Comment on above: Order Comment: Speci men Type: BLOOD SPECIMENOrdering Facility: [facility] Address: [address] [place] [address] Performed By: #### 5 7021-8 ####[facility]ITALWNCLIA [id number] [place] [address] [place] Platelet mean volume (Bld) [Entitic vol] 9.5 fL Normal 9.0-12.7 [facility] Comment on above: Order Comment: Speci men Type: BLOOD SPECIMENOrdering Facility: [facility] Address: [address] [place] [address] Performed By: #### 5 7021-8 ####[facility] [id number] [place] [address] [place] Platelets (Bld) [#/Vol] 247 10*3/uL Normal 150-400 [facility] Comment on above: Order Comment: Speci men Type: BLOOD SPECIMENOrdering Facility: [facility] Address: [address] [place] [address] Performed By: #### 5 7021-8 ####[facility] [id number] [place] [address] [place] RBC (Bld) [#/Vol] 4.18 10*6/uL Normal 3.90-5.20 [facility] Comment on above: Order Comment: Speci men Type: BLOOD SPECIMENOrdering Facility: [facility] Address: [address] [place] [address] Performed By: #### 5 7021-8 ####[facility] [id number] [place] [address] [place] WBC (Bld) [#/Vol] 10.65 10*3/uL Normal 3.70-11.00 [facility] Comment on above: Order Comment: Speci men Type: BLOOD SPECIMENOrdering Facility: [facility] Address: [address] [place] [address] Performed By: #### 5 7021-8 ####[facility] [id number] [place] [address] [place] Examination level ultrasound on 10-01-2024 Radiology Study observation (narrative) [facility] HBV surface Ag Ser Qlon 09-13 HBV surface Ag Ql (S) Negative Normal Negative [facility] Comment on above: Order Comment: Speci men Type: BLOOD SPECIMENOrdering Facility: [facility] Address: [address] [place] [address] Performed By: #### 5 195-3, 52652-9, 33211-3 ####[facility] LABCLIA [id number] [place] [address] [place] HCV Ab Ser Qlon 10-01-2024 HCV Ab Ql (S) Negative Normal Negative [facility] Comment on above: Order Comment: Hazel juarez Type: BLOOD SPECIMENOrdering Facility: [facility] Address: [address] [place] [address] Result Comment: The result suggests no evidence of infection with Hepatitis C virus. Should recent infection be suspected, repeat testing may be considered 4-6 weeks after this draw. Performed By: #### 1 6128-1 ####[facility] LABCLIA [id number] [place] [address] [place] HGB ELECTROPHORESIS FOR EVAL (LAB ORDER)on 10-01-2024 Hemoglobin A (Bld) [Mass fraction] 97.3 % Normal 96.2-98.0 [facility] Comment on above: Order Comment: Hazel juarez Type: BLOOD SPECIMENOrdering Facility: [facility] Address: [address] [place] [address] Performed By: #### H JETHRO, [id number] ####[facility] LABCLIA [id number] [place] [address] [place] Hemoglobin A2 (Bld) [Mass fraction] 2.7 % Normal 2.0-3.1 [facility] Comment on above: Order Comment: Hazel juarez Type: BLOOD SPECIMENOrdering Facility: [facility] Address: [address] [place] [address] Performed By: #### H GBBEBETO, [id number] ####[facility] LABCLIA [id number] [place] [address] [place] Hemoglobin Unsp Elph (Bld) [Mass fraction] No abnormal hemoglobin identified. Normal No abnormal hemoglobin identified. [facility] Comment on above: Order Comment: Hazel [facility] Type: BLOOD SPECIMENOrdering Facility: [facility] Address: [address] [place] [address] Performed By: #### H JETHRO, [id number] ####[facility] LABCLIA [id number] [place] [address] [place] HGB EVALUATION CASCADE INTER Laith 10-01-2024 Hemoglobin pattern (Bld) [Interp] Reviewed by Los Obando MD Normal [facility] Comment on above: Order Comment: Speci men Type: BLOOD SPECIMENOrdering Facility: [facility] Address: [address] [place] [address] Performed By: #### H JETHRO, [id number] ####[facility] LABCLIA [id number] [place] [address] [place] INTERPRETATION (HGB EVAL) Normal [facility] Comment on above: Order Comment: Speci men Type: BLOOD SPECIMENOrdering Facility: [facility] Address: [address] [place] [address] Result Comment: Hemo globins were analyzed by capillary electrophoresis and CBC red cell parameters were reviewed. No abnormal hemoglobin is identified. There is a normal hemoglobin capillary electrophoresis pattern. Performed By: #### Asmita MORELOS, [id number] ####[facility] LABIA [id number] [place] [address] [place] HIV 1+2 Ab IA Qlon 5 HIV 1 and 2 Ab IA.rapid Nom (S/P/Bld) Normal [facility] Comment on above: Order Comment: Speci men Type: BLOOD SPECIMENOrdering Facility: [facility] Address: [address] [place] [address] Result Comment: Test not indicated. Performed By: #### 5 195-3, 76766-4, 42827-5 ####[facility] LABIA [id number] [address] [place] HIV 1+2 Ab+HIV1 p24 Ag IA Ql Non-Reactive Normal Nonreactive [facility] Comment on above: Order Comment: Speci men Type: BLOOD SPECIMENOrdering Facility: [facility] Address: [address] [place] [address] Performed By: #### 5 195-3, 59163-0, 94768-2 ####[facility] LABIA [id number] [place] [address] [place] HIV immunoassay testing algorithm interpretation (S/P/Bld) [Interp] Normal [facility] Comment on above: Order Comment: Speci men Type: BLOOD SPECIMENOrdering Facility: [facility] Address: [address] [place] [address] Result Comment: No e vidence of HIV-1 or HIV-2 infection. Should recent infection be suspected, repeat testing may be considered 2-3 weeks after this draw. [place] Rev. Code 3701.243(E): This information has been disclosed to you from confidential records protected from disclosure by state law. You shall make no further disclosure of this information without the specific, written, and informed release of the individual to whom it pertains or as otherwise permitted by state law. A general authorization for the release of medical or other information is not sufficient for the purpose of the release of HIV test results or diagnoses. Performed By: #### 5 195-3, 95932-1, 69850-5 ####[facility] LABIA [id number] [place] [address] [place] HbA1c (Bld)on 10-01-2024 Average glucose Estimated from glycated hemoglobin (Bld) [Mass/Vol] 88 mg/dL Normal [facility] Comment on above: Order Comment: Speci men Type: BLOOD SPECIMENOrdering Facility: [facility] Address: [address] [place] [address] Result Comment: eAG: (Estimated average glucose) is a calculated value from HgbA1c and is reimbursement representative of the average blood glucose level in the last 2-3 month period. Performed By: #### 5 5454-3 ####[facility] LABCLIA [id number] [place] [address] [place] HbA1c (Bld) [Mass fraction] 4.7 % Normal 4.3-5.6 [facility] Comment on above: Order Comment: Speci men Type: BLOOD SPECIMENOrdering Facility: [facility] Address: [address] [place] [address] Result Comment: Amdionisio ican Diabetes Association guidelines indicate that patients with HgbA1c in the range 5.7-6.4% are at increased risk for development of diabetes, and intervention by lifestyle modification may be beneficial. HgbA1c greater or equal to 6.5% is considered diagnostic of diabetes. Performed By: #### 5 5454-3 ####[facility] LABCLIA [id number] [address] [place] [id number] PLUSon 10-01-2024 Cell-free DNA./Cell-free DNA.total Dosage of chromosome-specific cfDNA (cfDNA) [Molar fraction] 17% Normal [facility] Comment on above: Order Comment: Speci men Type: BLOOD SPECIMENOrdering Facility: [facility] Address: [address] [place] [address] Performed By: #### M AT21 ####[facility] LABCLIA [id number] [place] [address] Chr 13+18+21+X+Y aneuploidy Dosage of chromosome-specific cfDNA Ql (cfDNA) Negative Normal [facility] Comment on above: Order Comment: Speci men Type: BLOOD SPECIMENOrdering Facility: [facility] Address: [address] [place] [address] Performed By: #### M AT21 ####[facility] LABCLIA [id number] [place] [address] Chr 21 trisomy Dosage of chromosome-specific cfDNA Ql (cfDNA) Negative Normal [facility] Comment on above: Order Comment: Speci men Type: BLOOD SPECIMENOrdering Facility: [facility] Address: [address] [place] [address] Performed By: #### M AT21 ####[facility] LABCLIA [id number] [place] [address] Chr X and Y aneuploidy risk Sequencing Ql (cfDNA) [Interp] Not detected Normal [facility] Comment on above: Order Comment: Speci men Type: BLOOD SPECIMENOrdering Facility: [facility] Address: [address] [place] [address] Result Comment: Not Detected Not Detected Performed By: #### M AT21 ####[facility] LABCLIA [id number] [place] [address] Citation George (Reference lab test) Comment Normal [facility] Comment on above: Order Comment: Speci men Type: BLOOD SPECIMENOrdering Facility: [facility] Address: [address] [place] [address] Result Comment: 1. P justus DUMONT, et al. Celsa Med. 2012;14(3):296-305. 2. Jenifer JONES et al. Prenat Diag. 2013;33(6):591-597. 3. Julio C, et al. Clin Chem. 2015 Apr;61(4):608-616. 4. Neetu DUMONT, et al. Celsa Med. 2011;13(11):913-920. 5. ACOG/SMFM Practice Bulletin No. 226, Jan 2020. Performed By: #### M AT21 ####[facility] LABCLIA [id number] [place] [address] Gestational age Estimated from conception date Tabares Normal [facility] Comment on above: Order Comment: Speci men Type: BLOOD SPECIMENOrdering Facility: [facility] Address: [address] [place] [address] Performed By: #### M AT21 ####[facility] LABCLIA [id number] [place] [address] GESTATIONALAGE AGE > OR = 9W Yes Normal [facility] Comment on above: Order Comment: Speci men Type: BLOOD SPECIMENOrdering Facility: [facility] Address: [address] [place] [address] Performed By: #### M AT21 ####[facility] LABCLIA [id number] [place] [address] Laboratory comment George (Report) Comment Normal [facility] Comment on above: Order Comment: Hazel juarez Type: BLOOD SPECIMENOrdering Facility: [facility] Address: [address] [place] [address] Result Comment: The MaterniT(R) 21 PLUS laboratory-developed test (LDT) analyzes circulating cell-free DNA from a maternal blood sample. This test is used for screening purposes and not diagnostic. Clinical correlation is recommended. Validation data on twin pregnancies is limited and the ability of this test to detect aneuploidy in higher multiple gestations has not yet been validated. Performed By: #### M AT21 ####[facility] TechnologiesCLIA [id number] [place] [address] purchasing director name Nom (Provider) Comment Normal [facility] Comment on above: Order Comment: Hazel juarez Type: BLOOD SPECIMENOrdering Facility: [facility] Address: [address] [place] [address] Result Comment: This specimen showed an expected representation of chromosome 21, 18 and 13 material. Clinical correlation is suggested. Comment Dawson Ruiz MD, PhD, Director, [employer] Performed By: #### M AT21 ####[facility] LABCLIA [id number] [place] [address] LIMITATIONS OF THE TEST Comment Normal [facility] Comment on above: Order Comment: Hazel juarez Type: BLOOD SPECIMENOrdering Facility: [facility] Address: [address] [place] [address] Result Comment: Rigo fry the results of these tests are highly reliable, discordant results, including inaccurate sex prediction, may occur due to placental, maternal, or mosaicism or neoplasm; vanishing twin; prior maternal organ transplant; or other causes. These tests are screening tests and not diagnostic; they do not replace the accuracy and precision of diagnosis with CVS or amniocentesis. A patient with a positive test result should be referred for genetic counseling and offered invasive diagnosis for confirmation of test results.[5] The results of this testing, including the benefits and limitations, should be discussed with a qualified healthcare provider. management decisions, including termination of the , should not be based on the results of these tests alone. The healthcare provider is responsible for the use of this information in the management of their patient. Sex chromosomal aneuploidies are not reportable for known multiple gestations. A negative result does not ensure an unaffected nor does it exclude the possibility of other chromosomal abnormalities or defects which are not a part of these tests. An uninformative result may be reported, the causes of which may include, but are not limited to, insufficient sequencing coverage, noise or artifacts in the region, amplification or sequencing bias, or insufficient fraction. These tests are not intended to identify pregnancies at risk for neural tube defects or ventral wall defects. Testing for whole chromosome abnormalities (including sex chromosomes) and for subchromosomal abnormalities could lead to the potential discovery of both and maternal genomic abnormalities that could have major, minor, or no, clinical significance. Evaluating the significance of a positive or a non-reportable result may involve both invasive testing and additional studies on the mother. Such investigations may lead to a diagnosis of maternal chromosomal or subchromosomal abnormalities, which on occasion may be associated with benign or malignant maternal neoplasms. These tests may not accurately identify triploidy, balanced rearrangements, or the precise location of subchromosomal duplications or deletions; these may be detected by diagnosis with CVS or amniocentesis. The ability to report results may be impacted by maternal BMI, maternal weight, maternal systemic lupus erythematosus (SLE) and/or by certain pharmaceutical agents such as low molecular weight heparin (for example: Lovenox(R), Xaparin(R), Clexane(R) and Fragmin(R)). Performed By: #### M AT21 ####[facility] LABDianwobaIA [id number] [place] [address] Monosomy X risk Dosage of chromosome-specific cfDNA Ql (Plasma cell-free+WBC DNA) [Interp] Not detected Normal [facility] Comment on above: Order Comment: Speci men Type: BLOOD SPECIMENOrdering Facility: [facility] Address: [address] [place] [address] Performed By: #### M AT21 ####[facility] LABCLIA [id number] [place] [address] NEGATIVE PREDICTIVE VALUE Note Normal [facility] Comment on above: Order Comment: Speci men Type: BLOOD SPECIMENOrdering Facility: [facility] Address: [address] [place] [address] Result Comment: The Negative Predictive Value (NPV) for trisomy 21, 18, and 13 is greater than 99%. The NPV for SCA and ESS cannot be calculated as SCA and ESS are only reported when an abnormality is detected. Performed By: #### M AT21 ####[facility] LABCLIA [id number] [facility] [address] PERFORMANCE CHARACTERISTICS Note Normal [facility] Comment on above: Order Comment: Speci larry Type: BLOOD SPECIMENOrdering Facility: [facility] Address: [address] [place] [address] Result Comment: ! Sex ! Accuracy: 99.4% ! ! ! ! Region (associated syndrome) ! Est. Sens# ! Est. Spec ! ! ! ! Trisomy 21 (Down Syndrome) ! 99.1% ! 99.9% ! ! ! ! Trisomy 18 (Griffiths Syndrome) ! >99.9% ! 99.6% ! ! ! ! Trisomy 13 (Patau Syndrome) ! 91.7% ! 99.7% ! ! ! ! Sex Chromosome Aneuploidies## ! 96.2% ! 99.7% ! ! ! * As reported in [facility] database [id number] [https://www.ncbi.nlm.nih.gov/dbvar/studies/nstd37/ ] # Estimated Sensitivity. Sensitivity estimated across the observed size distribution of each syndrome [per [facility] database nstd37] and across the range of fractions observed in routine clinical NIPT. Actual sensitivity can also be influenced by other factors such as the size of the event, total sequence counts, amplification bias, or sequence bias. ## Tabares gestation only. Performed By: #### M AT21 ####BioSETIA [id number] [place] [address] POSITIVE PREDICTIVE VALUE N/A Normal [facility] Comment on above: Order Comment: Hazel juarez Type: BLOOD SPECIMENOrdering Facility: [facility] Address: [address] [place] [address] Performed By: #### M AT21 ####[facility] LABCLIA [id number] [place] [address] Reference Lab Test Method Comment Normal [facility] Comment on above: Order Comment: Hazel juarez Type: BLOOD SPECIMENOrdering Facility: [facility] Address: [address] [place] [address] Result Comment: See Notes Circulating cell-free DNA was purified from the plasma component of maternal blood. The extracted DNA was then converted into a genomic DNA library for aneuploidy analysis of chromosomes 21, 18, and 13 via next generation sequencing.[1] Optional findings based on the test order include sex chromosome aneuploidy (SCA)[2], and enhanced sequencing series (ESS)[3], which will only be reported on as an additional finding when an abnormality is detected. SCA testing includes information on X and Y representation, while ESS testing includes deletions in selected regions (22q, 15q, 11q, 8q, 5p, 4p, 1p) and trisomy of chromosomes 16 and 22. Performed By: #### M AT21 ####[facility] LABCLIA [id number] [place] [address] Service comment (Unsp spec) [Interp] Comment Normal [facility] Comment on above: Order Comment: Speci men Type: BLOOD SPECIMENOrdering Facility: [facility] Address: [address] [place] [address] Result Comment: See Notes [employer] is a subsidiary of [employer], using the brand [employer]. This test was developed and its performance characteristics determined by [employer]. It has not been cleared or approved by the Food and Drug Administration. This laboratory is certified under the Clinical Laboratory Improvement Amendments (CLIA) as qualified to perform high complexity clinical laboratory testing and accredited by the [employer] (CAP). If there is future clinical need for adding MaterniT GENOME testing, this specimen will be available until term. [facility] samples will not be retained beyond 60 days. [facility] patients will have to send a new sample for re-sequencing ([facility] Test Code: [id number]). Performed By: #### M AT21 ####[facility] LABCLIA [id number] [place] [address] Sex Dosage of chromosome-specific cfDNA Nom (cfDNA) Comment Normal [facility] Comment on above: Order Comment: Speci men Type: BLOOD SPECIMENOrdering Facility: [facility] Address: [address] [place] [address] Result Comment: Cons istent with Male Performed By: #### M AT21 ####[facility] LABCLIA [id number] [place] [address] Test performance information George (Unsp spec) Comment Normal [facility] Comment on above: Order Comment: Speci men Type: BLOOD SPECIMENOrdering Facility: [facility] Address: [address] [place] [address] Result Comment: The performance characteristics of the MaterniT(R) 21 PLUS laboratory-developed test (LDT) have been determined in a clinical validation study with women at increased risk for chromosomal aneuploidy.[1-4] Performed By: #### M AT21 ####[facility] LABCLIA [id number] [place] [address] Trisomy 13 risk Dosage of chromosome-specific cfDNA Ql (cfDNA) [Interp] Negative Normal [facility] Comment on above: Order Comment: Speci men Type: BLOOD SPECIMENOrdering Facility: [facility] Address: [address] [place] [address] Performed By: #### M AT21 ####[facility] LABCLIA [id number] [place] [address] Trisomy 18 risk Dosage of chromosome-specific cfDNA Ql (Plasma cell-free+WBC DNA) [Interp] Negative Normal [facility] Comment on above: Order Comment: Speci men Type: BLOOD SPECIMENOrdering Facility: [facility] Address: [address] [place] [address] Performed By: #### M AT21 ####[facility] LABCLIA [id number] [place] [address] RBC PARAMETERS FOR HB IDon 0 - Hematocrit (Bld) [Volume fraction] 37.3 % Normal 36.0-46.0 [facility] Comment on above: Order Comment: Speci men Type: BLOOD SPECIMENOrdering Facility: [facility] Address: [address] [place] [address] Performed By: #### L [id number] ####[facility] LABCLIA [id number] [place] [address] [place] Hemoglobin (Bld) [Mass/Vol] 12.5 g/dL Normal 11.5-15.5 [facility] Comment on above: Order Comment: Speci men Type: BLOOD SPECIMENOrdering Facility: [facility] Address: [address] [place] [address] Performed By: #### L [id number] ####[facility] [id number] [place] [address] [place] MCH (RBC) [Entitic mass] 30.0 pg Normal 26.0-34.0 [facility] Comment on above: Order Comment: Speci men Type: BLOOD SPECIMENOrdering Facility: [facility] Address: [address] [place] [address] Performed By: #### L [id number] ####[facility] [id number] [place] [address] [place] MCHC (RBC) [Mass/Vol] 33.5 g/dL Normal 30.5-36.0 [facility] Comment on above: Order Comment: Speci men Type: BLOOD SPECIMENOrdering Facility: [facility] Address: [address] [place] [address] Performed By: #### L [id number] ####[facility] [id number] [place] [address] [place] MCV (RBC) [Entitic vol] 89.7 fL Normal 80.0-100.0 [facility] Comment on above: Order Comment: Speci men Type: BLOOD SPECIMENOrdering Facility: [facility] Address: [address] [place] [address] Performed By: #### L [id number] ####[facility] [id number] [place] [address] [place] RBC (Bld) [#/Vol] 4.16 10*6/uL Normal 3.90-5.20 [facility] Comment on above: Order Comment: Speci men Type: BLOOD SPECIMENOrdering Facility: [facility] Address: [address] [place] [address] Performed By: #### L [id number] ####[facility] LABCLIA [id number] [place] [address] [place] RUBELLA IGG ANTIBODYon 10-01 RUBELLA IGG AB, QUAL Positive Normal Positive [facility] Comment on above: Order Comment: Speci men Type: BLOOD SPECIMENOrdering Facility: [facility] Address: [address] [place] [address] Result Comment: The result suggests recent or past exposure to Rubella virus or history of Rubella vaccination. Positive result may also be seen due to presence of passively-transferred antibodies. Please correlate with patient's history. Performed By: #### R UBIGG ####[facility] LABIA [id number] [place] [address] [place] Reagin and Treponema pallidu m IgG and IgM [Interp]on 10-01-2024 T. pallidum IgG+IgM IA Ql (S) Non-Reactive Normal Nonreactive [facility] Comment on above: Order Comment: Speci men Type: BLOOD SPECIMENOrdering Facility: [facility] Address: [address] [place] [address] Performed By: #### 5 195-3, 30719-8, 14538-8 ####[facility] LABIA [id number] [place] [address] [place] Reagin+T pallidum IgG+IgM Se rPl-Impon 10-01-2024 Reagin and Treponema pallidum IgG and IgM [Interp] Cannot exclude recent Treponemal infection if specimen collected within 7-10 days after appearance of suspect lesions or 2-3 weeks after an exposure. Clinical correlation is required. Normal [facility] Comment on above: Order Comment: Speci men Type: BLOOD SPECIMENOrdering Facility: [facility] Address: [address] [place] [address] Performed By: #### 5 195-3, 18048-3, 02028-8 ####[facility] LABIA [id number] [place] [id number] [place] TYPE + SCREEN PRENATALon ABO A Normal [facility] Comment on above: Order Comment: Speci men Type: BLOOD SPECIMENOrdering Facility: [facility] Address: [address] [place] [address] Performed By: #### T SPN ####CC [facility] BLOOD BANKCLIA [id number] [place] [address] [place] Rh Nom (Bld) Negative Normal [facility] Comment on above: Order Comment: Speci men Type: BLOOD SPECIMENOrdering Facility: [facility] Address: [address] [place] [address] Performed By: #### T SPN ####CC [facility] BLOOD BANKCLIA [id number] [place] [address] [place] TYPE AND SCREEN EXPIRATION 10/04/2024 23:59 Normal [facility] Comment on above: Order Comment: Speci men Type: BLOOD SPECIMENOrdering Facility: [facility] Address: [address] [place] [address] Performed By: #### T SPN ####CC [facility] BLOOD BANKCLIA [id number] [place] [address] [place] BACTERIAL VAGINOSIS NAATon 0 08-31-2024 Lactobacillus crispatus+gasseri+joel senii + Gardnerella vaginalis + Atopobium vaginae rRNA MIKO+probe Ql (Vag fld) Not detected Normal Not detected [facility] Comment on above: Order Comment: Speci men Type: SWABOrdering Facility: [facility] Address: [address] [place] [address] Performed By: #### B VAMP, CVTV ####[facility] LABCLIA [id number] [place] [address] [place] Bacteria Ur Culton Bacteria identified Cx Nom (U) ORGANISM ID: 1 50,000-<100,000 CFU/ml Normal urogenital butch Normal [facility] Comment on above: Performed By: #### 6 30-4 ####[facility] LABIA [id number] [address] [place] C. trachomatis+N. gonorrhoea e DNA MIKO+probe Ql (Unsp spec)on 08-31-2024 C. trachomatis rRNA MIKO+probe Ql (Unsp spec) Not detected Normal Not detected [facility] Comment on above: Order Comment: Speci men Type: SWABOrdering Facility: [facility] Address: [address] [place] [address] Performed By: #### 3 6902-5 ####[facility] LABIA [id number] [address] [place] N. gonorrhoeae rRNA MIKO+probe Ql (Unsp spec) Not detected Normal Not detected [facility] Comment on above: Order Comment: Speci men Type: SWABOrdering Facility: [facility] Address: [address] [place] [address] Performed By: #### 3 6902-5 ####[facility] [id number] [place] [address] [place] BEATRIZ/TRICHOMONAS NAATon 0 08-31-2024 C. glabrata RNA MIKO+probe Ql (Vag fld) Not detected Normal Not detected [facility] Comment on above: Order Comment: Speci men Type: SWABOrdering Facility: [facility] Address: [address] [place] [address] Performed By: #### B VAMP, CVTV ####[facility] [id number] [place] [address] [place] Beatriz sp DNA MIKO+probe Ql (Vag fld) Not detected Normal Not detected [facility] Comment on above: Order Comment: Speci men Type: SWABOrdering Facility: [facility] Address: [address] [place] [address] Result Comment: The Beatriz species group target includes C. albicans, C. tropicalis, C. parapsilosis, and C. dubliniensis. Performed By: #### B VAMP, CVTV ####[facility] LABCLIA [id number] [address] T. vaginalis DNA MIKO+probe Ql (Unsp spec) Not detected Normal Not detected [facility] Comment on above: Order Comment: Speci men Type: SWABOrdering Facility: [facility] Address: [address] [place] [address] Performed By: #### B VAMP, CVTV ####[facility] LABCLIA [id number] [address] [place] POC [employer] RANGER ULTRASOUNDon 09-01-19 25 Indication Viability; confirm cardiac activity Impression Single intrauterine gestational sac, CRL is appropriate for clinical dates, corresponding to LEONIDAS: 04/14/2025 FHR 169 bpm Recommendations Follow up for 1st Trimester Anatomy with Nuchal Translucency as clinically indicated if desired. Method Transvaginal ultrasound examination Tabares . Number of embryos: 1 Dating LMP on: 07/08/2024 GA by LMP 7 w + 5 d LEONIDAS by LMP: 04/14/2025 Ultrasound examination on: 08/31/2024 GA by U/S based upon: CRL GA by U/S 8 w + 2 d LEONIDAS by U/S: 04/10/2025 Assigned: based on the LMP, selected on 08/31/2024 Assigned GA 7 w + 5 d Assigned LEONIDAS: 04/14/2025 Biometry Standard FHR 169 bpm CRL 17.7 mm 8w 2d >99% Hadlock Assessment Gestational sac: visualized Location: intrauterine Yolk sac: visualized Embryo: visualized CRL 17.7 mm 8w 2d >99% Hadlock Cardiac activity: present FHR 169 bpm General Evaluation Cardiac activity present. FHR 169 bpm Performed By: Kristin Pollock CNM Read By: Kristin Pollock CNM MATERNAL MEDICINE [facility] Radiology Study observation (narrative) [facility] TOXOon 01-12-2022 Toxoplasma IgG Interp Not detected Invalid Interpretation Code [facility] ([place]) Comment on above: Performed By: #### F T3, FT4, VIDH, LIPID, GFR, CMP, TSH, FERR #### [place] [address] #### DEX, TOXO, EBV, ASO #### [address] [address] Toxoplasma IgG, Acute Negative Normal Negative [facility] ([place]) Comment on above: Performed By: #### F T3, FT4, VIDH, LIPID, GFR, CMP, TSH, FERR #### [place] [address] #### DEX, TOXO, EBV, ASO #### [place] [address] Toxoplasma IgM Interp Not detected Invalid Interpretation Code [facility] ([place]) Comment on above: Performed By: #### F T3, FT4, VIDH, LIPID, GFR, CMP, TSH, FERR #### [place] [address] #### DEX, TOXO, EBV, ASO #### [place] [address] Toxoplasma IgM, Acute Negative Normal Negative [facility] ([place]) Comment on above: Performed By: #### F T3, FT4, VIDH, LIPID, GFR, CMP, TSH, FERR #### [place] [address] #### DEX, TOXO, EBV, ASO #### [place] [address] ANAon 01-11-2022 Nuclear Ab IF (S) [Titer] 40 {titer} Normal Neg 40 [facility] ([place]) Comment on above: Result Comment: DEX Screen and Titer methodology is an immunofluorescent technique utilizing Hep2 Substrate. Performed By: #### F T3, FT4, VIDH, LIPID, GFR, CMP, TSH, FERR #### [place] [address] #### DEX, TOXO, EBV, ASO #### [place] [address] EBVon 01-11-2022 EBV IgG Negative Normal Negative [facility] ([place]) Comment on above: Result Comment: INTE RPRETATION OF EBV IgG BY EIA: Negative: No detectable EBV IgG antibody. Result does not exclude EBV infection. Positive: EBV IgG antibody detected. Indicative of current or past infection. Equivocal: Equivocal for antibodies to EBV. Repeat testing if still indicated. Performed By: #### F T3, FT4, VIDH, LIPID, GFR, CMP, TSH, FERR #### [place] [address] #### DEX, TOXO, EBV, ASO #### [address] [address] EBV IgM Negative Normal Negative [facility] ([place]) Comment on above: Result Comment: INTE RPRETATION OF EBV IgM BY EIA: Negative: No detectable EBV IgM antibody. Result does not exclude EBV infection. An additional sample should be tested within 5-7 days if early infection is suspected. Positive: EBV IgM antibody detected. May be indicative of current or recent infection. Equivocal: Equivocal for antibodies to EBV. Repeat testing if still indicated. Performed By: #### F T3, FT4, VIDH, LIPID, GFR, CMP, TSH, FERR #### [place] [address] #### DEX, TOXO, EBV, ASO #### [address] [address] .Auto Diffon 01-10-2022 Basophil, Absolute 0.0 10 3/mcL Normal 0.0-0.2 [facility] ([place]) Comment on above: Performed By: #### F T3, FT4, VIDH, LIPID, GFR, CMP, TSH, FERR #### [place] [address] #### DEX, TOXO, EBV, ASO #### [address] [address] Basophils/100 WBC (Bld) 0.3 % Normal 0.0-2.5 [facility] ([place]) Comment on above: Performed By: #### F T3, FT4, VIDH, LIPID, GFR, CMP, TSH, FERR #### [place] [address] #### DEX, TOXO, EBV, ASO #### [address] [address] Eosinophil, Absolute 0.1 10 3/mcL Normal 0.0-0.4 [facility] ([place]) Comment on above: Performed By: #### F T3, FT4, VIDH, LIPID, GFR, CMP, TSH, FERR #### [place] [address] #### DEX, TOXO, EBV, ASO #### [address] [address] Eosinophils/100 WBC (Bld) 2.0 % Normal 0.0-7.0 [facility] ([place]) Comment on above: Performed By: #### F T3, FT4, VIDH, LIPID, GFR, CMP, TSH, FERR #### [place] [address] #### DEX, TOXO, EBV, ASO #### [address] [address] Lymphocyte, Absolute 1.7 10 3/mcL Normal 0.8-3.9 [facility] ([place]) Comment on above: Performed By: #### F T3, FT4, VIDH, LIPID, GFR, CMP, TSH, FERR #### [place] [address] #### DEX, TOXO, EBV, ASO #### [address] [address] Lymphocytes/100 WBC (Bld) 30.5 % Normal 10.0-50.0 [facility] ([place]) Comment on above: Performed By: #### F T3, FT4, VIDH, LIPID, GFR, CMP, TSH, FERR #### [place] [address] #### DEX, TOXO, EBV, ASO #### [address] [address] Monocyte, Absolute 0.6 10 3/mcL Normal 0.2-1.0 [facility] ([place]) Comment on above: Performed By: #### F T3, FT4, VIDH, LIPID, GFR, CMP, TSH, FERR #### [address] [address] #### DEX, TOXO, EBV, ASO #### [address] [address] Monocytes/100 WBC (Bld) 10.3 % Normal 1.7-13.0 [facility] ([place]) Comment on above: Performed By: #### F T3, FT4, VIDH, LIPID, GFR, CMP, TSH, FERR #### [address] [address] #### DEX, TOXO, EBV, ASO #### [address] [address] Neutrophils/100 WBC (Bld) 56.9 % Normal 37.0-80.0 [facility] ([place]) Comment on above: Performed By: #### F T3, FT4, VIDH, LIPID, GFR, CMP, TSH, FERR #### [address] [address] #### DEX, TOXO, EBV, ASO #### [address] [address] .GFRon 01-10-2022 GFR 92 ml/min/1.73sqm Normal [facility] ([place]) Comment on above: Result Comment: GFR Population mean for , Non- Americans Ages 20-29 = 116 mL/min/1.73 sq.m. Ages 30-39 = 107 mL/min/1.73 sq.m. Ages 40-49 = 99 mL/min/1.73 sq.m. Ages 50-59 = 93 mL/min/1.73 sq.m. Ages 60-69 = 85 mL/min/1.73 sq.m. Ages 70+ = 75 mL/min/1.73 sq.m. Chronic Kidney Disease: Less than 60 mL/min/1.73 square meters End Stage Renal Disease: Less than 15 mL/min/1.73 square meters Performed By: #### F T3, FT4, VIDH, LIPID, GFR, CMP, TSH, FERR #### [address] [address] #### DEX, TOXO, EBV, ASO #### [address] [address] GFR Non- 76 ml/min/1.73sqm Normal [facility] ([place]) Comment on above: Result Comment: GFR Population mean for , Non- Americans Ages 20-29 = 116 mL/min/1.73 sq.m. Ages 30-39 = 107 mL/min/1.73 sq.m. Ages 40-49 = 99 mL/min/1.73 sq.m. Ages 50-59 = 93 mL/min/1.73 sq.m. Ages 60-69 = 85 mL/min/1.73 sq.m. Ages 70+ = 75 mL/min/1.73 sq.m. Chronic Kidney Disease: Less than 60 mL/min/1.73 square meters End Stage Renal Disease: Less than 15 mL/min/1.73 square meters Performed By: #### F T3, FT4, VIDH, LIPID, GFR, CMP, TSH, FERR #### [place] [address] #### DEX, TOXO, EBV, ASO #### [address] [address] .NEUABSon 01-10-2022 Neutrophil, Absolute 3.1 10 3/mcL Normal 2.9-6.2 [facility] ([place]) Comment on above: Performed By: #### F T3, FT4, VIDH, LIPID, GFR, CMP, TSH, FERR #### [address] [address] #### DEX, TOXO, EBV, ASO #### [place] [address] ASOon 01-10-2022 ASO 73.8 IU/mL Normal 25.0-250.0 [facility] ([place]) Comment on above: Result Comment: No te - New Reference Range in effect 19 Performed By: #### F T3, FT4, VIDH, LIPID, GFR, CMP, TSH, FERR #### [place] [address] #### DEX, TOXO, EBV, ASO #### [address] [address] CBCon 01-10-2022 Erythrocyte distribution width (RBC) [Ratio] 12.2 % Normal 11.5-14.5 [facility] ([place]) Comment on above: Performed By: #### F T3, FT4, VIDH, LIPID, GFR, CMP, TSH, FERR #### [place] [address] #### DEX, TOXO, EBV, ASO #### [address] [address] Hematocrit (Bld) [Volume fraction] 39.9 % Normal 37.0-47.0 [facility] ([place]) Comment on above: Performed By: #### F T3, FT4, VIDH, LIPID, GFR, CMP, TSH, FERR #### [place] [address] #### DEX, TOXO, EBV, ASO #### [place] [address] Hgb 13.5 G/dL Normal 12.0-16.0 [facility] ([place]) Comment on above: Performed By: #### F T3, FT4, VIDH, LIPID, GFR, CMP, TSH, FERR #### [place] [address] #### DEX, TOXO, EBV, ASO #### [address] [address] MCH (RBC) [Entitic mass] 30.8 pg Normal 27.0-31.2 [facility] ([place]) Comment on above: Performed By: #### F T3, FT4, VIDH, LIPID, GFR, CMP, TSH, FERR #### [place] [address] #### DEX, TOXO, EBV, ASO #### [address] [address] MCHC 33.8 G/dL Normal 33.0-37.0 [facility] ([place]) Comment on above: Performed By: #### F T3, FT4, VIDH, LIPID, GFR, CMP, TSH, FERR #### [address] [address] #### DEX, TOXO, EBV, ASO #### [place] [address] MCV (RBC) [Entitic vol] 91.2 fL Normal 80.0-94.0 [facility] ([place]) Comment on above: Performed By: #### F T3, FT4, VIDH, LIPID, GFR, CMP, TSH, FERR #### [place] [address] #### DEX, TOXO, EBV, ASO #### [place] [address] Platelet 207 10 3/mcL Normal 130-400 [facility] ([place]) Comment on above: Performed By: #### F T3, FT4, VIDH, LIPID, GFR, CMP, TSH, FERR #### [place] [address] #### DEX, TOXO, EBV, ASO #### [place] [address] Platelet mean volume (Bld) [Entitic vol] 8.5 fL Normal 7.4-10.4 [facility] ([place]) Comment on above: Performed By: #### F T3, FT4, VIDH, LIPID, GFR, CMP, TSH, FERR #### [place] [address] #### DEX, TOXO, EBV, ASO #### [place] [address] RBC 4.38 10 6/mcL Normal 4.20-5.40 [facility] ([place]) Comment on above: Performed By: #### F T3, FT4, VIDH, LIPID, GFR, CMP, TSH, FERR #### [place] [address] #### DEX, TOXO, EBV, ASO #### [address] [address] WBC 5.5 10 3/mcL Normal 4.6-10.8 [facility] ([place]) Comment on above: Performed By: #### F T3, FT4, VIDH, LIPID, GFR, CMP, TSH, FERR #### [place] [address] #### DEX, TOXO, EBV, ASO #### [place] [address] CMPon 01-10-2022 Albumin Level 4.3 G/dL Normal 3.5-5.0 [facility] ([place]) Comment on above: Performed By: #### F T3, FT4, VIDH, LIPID, GFR, CMP, TSH, FERR #### [place] [address] #### DEX, TOXO, EBV, ASO #### [place] [address] Albumin/Globulin [Mass ratio] 1.5 {ratio} Normal 1.1-2.5 [facility] ([place]) Comment on above: Performed By: #### F T3, FT4, VIDH, LIPID, GFR, CMP, TSH, FERR #### [place] [address] #### DEX, TOXO, EBV, ASO #### [place] [address] ALP [Catalytic activity/Vol] 70 U/L Normal 40-135 [facility] ([place]) Comment on above: Performed By: #### F T3, FT4, VIDH, LIPID, GFR, CMP, TSH, FERR #### [place] [address] #### DEX, TOXO, EBV, ASO #### [place] [id number] ALT [Catalytic activity/Vol] 20 U/L Normal 14-59 [facility] ([place]) Comment on above: Performed By: #### F T3, FT4, VIDH, LIPID, GFR, CMP, TSH, FERR #### [place] [address] #### DEX, TOXO, EBV, ASO #### [address] [address] AST [Catalytic activity/Vol] 14 U/L Normal 10-40 [facility] ([place]) Comment on above: Performed By: #### F T3, FT4, VIDH, LIPID, GFR, CMP, TSH, FERR #### [place] [address] #### DEX, TOXO, EBV, ASO #### [place] [id number] Bili Total 0.9 mg/dL Normal 0.2-1.0 [facility] ([place]) Comment on above: Result Comment: Use of this assay is not recommended for patients undergoing treatment with eltrombopag due to the potential for falsely elevated results. Performed By: #### F T3, FT4, VIDH, LIPID, GFR, CMP, TSH, FERR #### [place] [address] #### DEX, TOXO, EBV, ASO #### [place] [address] BUN/Creatinine Ratio 14 ratio Normal 7-27 [facility] ([place]) Comment on above: Performed By: #### F T3, FT4, VIDH, LIPID, GFR, CMP, TSH, FERR #### [place] [address] #### DEX, TOXO, EBV, ASO #### [address] [address] Calcium [Mass/Vol] 8.7 mg/dL Normal 8.4-10.2 [facility] ([place]) Comment on above: Performed By: #### F T3, FT4, VIDH, LIPID, GFR, CMP, TSH, FERR #### [place] [address] #### DEX, TOXO, EBV, ASO #### [address] [address] Chloride [Moles/Vol] 102 mmol/L Normal 98-107 [facility] ([place]) Comment on above: Performed By: #### F T3, FT4, VIDH, LIPID, GFR, CMP, TSH, FERR #### [address] [address] #### DEX, TOXO, EBV, ASO #### [place] [address] CO2 [Moles/Vol] 26 mmol/L Normal 22-29 [facility] ([place]) Comment on above: Performed By: #### F T3, FT4, VIDH, LIPID, GFR, CMP, TSH, FERR #### [address] [address] #### DEX, TOXO, EBV, ASO #### [place] [address] Creatinine [Mass/Vol] 0.90 mg/dL Normal 0.55-1.02 [facility] ([place]) Comment on above: Performed By: #### F T3, FT4, VIDH, LIPID, GFR, CMP, TSH, FERR #### [address] [address] #### DEX, TOXO, EBV, ASO #### [address] [address] Electrolyte Balance 11.0 mEq/L Normal 4.0-15.0 [facility] ([place]) Comment on above: Performed By: #### F T3, FT4, VIDH, LIPID, GFR, CMP, TSH, FERR #### [address] [address] #### DEX, TOXO, EBV, ASO #### [place] [address] Globulin 2.9 G/dL Normal [facility] ([place]) Comment on above: Performed By: #### F T3, FT4, VIDH, LIPID, GFR, CMP, TSH, FERR #### [address] [address] #### DEX, TOXO, EBV, ASO #### [address] [address] Glucose [Mass/Vol] 90 mg/dL Normal 70-105 [facility] ([place]) Comment on above: Performed By: #### F T3, FT4, VIDH, LIPID, GFR, CMP, TSH, FERR #### [address] [address] #### DEX, TOXO, EBV, ASO #### [address] [address] Potassium [Moles/Vol] 3.8 mmol/L Normal 3.5-5.1 [facility] ([place]) Comment on above: Performed By: #### F T3, FT4, VIDH, LIPID, GFR, CMP, TSH, FERR #### [place] [address] #### DEX, TOXO, EBV, ASO #### [address] [address] Sodium [Moles/Vol] 139 mmol/L Normal 136-145 [facility] ([place]) Comment on above: Performed By: #### F T3, FT4, VIDH, LIPID, GFR, CMP, TSH, FERR #### [address] [address] #### DEX, TOXO, EBV, ASO #### [address] [address] Total Protein 7.2 G/dL Normal 6.4-8.2 [facility] ([place]) Comment on above: Performed By: #### F T3, FT4, VIDH, LIPID, GFR, CMP, TSH, FERR #### [address] [address] #### DEX, TOXO, EBV, ASO #### [address] [address] Urea nitrogen [Mass/Vol] 13 mg/dL Normal 7-18 [facility] ([place]) Comment on above: Performed By: #### F T3, FT4, VIDH, LIPID, GFR, CMP, TSH, FERR #### [address] [address] #### DEX, TOXO, EBV, ASO #### [address] [address] Kristian 01-10-2022 Ferritin [Mass/Vol] 102.0 ng/mL Normal 8.0-252.0 [facility] ([place]) Comment on above: Performed By: #### F T3, FT4, VIDH, LIPID, GFR, CMP, TSH, FERR #### [address] [address] #### DEX, TOXO, EBV, ASO #### [address] [address] FT3on 01-10-2022 Free T3 [Mass/Vol] 2.68 pg/mL Normal 2.30-4.00 [facility] ([place] Comment on above: Performed By: #### F T3, FT4, VIDH, LIPID, GFR, CMP, TSH, FERR #### [address] [address] #### DEX, TOXO, EBV, ASO #### [address] [address] FT4on 01-10-2022 Free T4 [Mass/Vol] 1.01 ng/dL Normal 0.76-1.46 [facility] ([place] Comment on above: Performed By: #### F T3, FT4, VIDH, LIPID, GFR, CMP, TSH, FERR #### [place] [id number] #### DEX, TOXO, EBV, ASO #### [address] [address] LABORATORYOrdered By: Magali Horton on 01-10-2022 Albumin BCP dye [Mass/Vol] 4.3 G/dL Invalid Interpretation Code 3.5 - 5.0 G/dL AO ADM SS Albumin/Globulin [Mass ratio] 1.5 {ratio} Invalid Interpretation Code 1.1 - 2.5 ratio AO ADM SS ALP [Catalytic activity/Vol] 70 U/L Invalid Interpretation Code 40 - 135 U/L AO ADM SS ALT With P-5'-P [Catalytic activity/Vol] 20 U/L Invalid Interpretation Code 14 - 59 U/L AO ADM SS AST With P-5'-P [Catalytic activity/Vol] 14 U/L Invalid Interpretation Code 10 - 40 U/L AO ADM SS Bilirubin [Mass/Vol] 0.9 mg/dL Invalid Interpretation Code 0.2 - 1.0 mg/dL AO ADM SS Calcium [Mass/Vol] 8.7 mg/dL Invalid Interpretation Code 8.4 - 10.2 mg/dL AO ADM SS Chloride [Moles/Vol] 102 mmol/L Invalid Interpretation Code 98 - 107 mmol/L AO ADM SS Cholesterol [Mass/Vol] 133 mg/dL Invalid Interpretation Code 0 - 200 mg/dL AO ADM SS Cholesterol in HDL [Mass/Vol] 60 mg/dL Invalid Interpretation Code 40 - 60 mg/dL AO ADM SS Cholesterol in LDL [Mass/Vol] 65 mg/dL Invalid Interpretation Code 0 - 130 mg/dL AO ADM SS CO2 [Moles/Vol] 26 mmol/L Invalid Interpretation Code 22 - 29 mmol/L AO ADM SS Creatinine [Mass/Vol] 0.90 mg/dL Invalid Interpretation Code 0.55 - 1.02 mg/dL AO ADM SS Electrolyte Balance 11.0 mEq/L Invalid Interpretation Code 4.0 - 15.0 mEq/L AO ADM SS Ferritin [Mass/Vol] 102.0 ng/mL Invalid Interpretation Code 8.0 - 252.0 ng/mL AO ADM SS Free T3 [Mass/Vol] 2.68 pg/mL Invalid Interpretation Code 2.30 - 4.00 pg/mL AO ADM SS Free T4 [Mass/Vol] 1.01 ng/dL Invalid Interpretation Code 0.76 - 1.46 ng/dL AO ADM SS Globulin 2.9 G/dL Invalid Interpretation Code AO ADM SS Glucose [Mass/Vol] 90 mg/dL Invalid Interpretation Code 70 - 105 mg/dL AO ADM SS Potassium [Moles/Vol] 3.8 mmol/L Invalid Interpretation Code 3.5 - 5.1 mmol/L AO ADM SS Protein [Mass/Vol] 7.2 G/dL Invalid Interpretation Code 6.4 - 8.2 G/dL AO ADM SS Sodium [Moles/Vol] 139 mmol/L Invalid Interpretation Code 136 - 145 mmol/L AO ADM SS Triglyceride [Mass/Vol] 38 mg/dL Invalid Interpretation Code 0 - 150 mg/dL AO ADM SS TSH Qn 1.76 m[IU]/L Invalid Interpretation Code 0.36 - 3.74 mcIU/mL AO ADM SS Urea nitrogen [Mass/Vol] 13 mg/dL Invalid Interpretation Code 7 - 18 mg/dL AO ADM SS Urea nitrogen/Creatinine [Mass ratio] 14 ratio Invalid Interpretation Code 7 - 27 ratio AO ADM SS Vit. D 25-Hydroxy 23.4 ng/mL Invalid Interpretation Code AO ADM SS LABORATORYOrdered By: Desiree Ho on 01-10-2022 Basophil, Absolute 0.0 103/mcL Invalid Interpretation Code 0.0 - 0.2 10^3/mcL AO Workflow SS Basophils/100 WBC (Bld) 0.3 % Invalid Interpretation Code 0.0 - 2.5 % AO Workflow SS Eosinophil, Absolute 0.1 103/mcL Invalid Interpretation Code 0.0 - 0.4 10^3/mcL AO Workflow SS Eosinophils/100 WBC (Bld) 2.0 % Invalid Interpretation Code 0.0 - 7.0 % AO Workflow SS Erythrocyte distribution width (RBC) [Ratio] 12.2 % Invalid Interpretation Code 11.5 - 14.5 % AO Workflow SS Hematocrit (Bld) [Volume fraction] 39.9 % Invalid Interpretation Code 37.0 - 47.0 % AO Workflow SS Hemoglobin (Bld) [Mass/Vol] 13.5 G/dL Invalid Interpretation Code 12.0 - 16.0 G/dL AO Workflow SS Lymphocyte, Absolute 1.7 103/mcL Invalid Interpretation Code 0.8 - 3.9 10^3/mcL AO Workflow SS Lymphocytes/100 WBC (Bld) 30.5 % Invalid Interpretation Code 10.0 - 50.0 % AO Workflow SS MCH (RBC) [Entitic mass] 30.8 pg Invalid Interpretation Code 27.0 - 31.2 pg AO Workflow SS MCHC 33.8 G/dL Invalid Interpretation Code 33.0 - 37.0 G/dL AO Workflow SS MCV (RBC) [Entitic vol] 91.2 fL Invalid Interpretation Code 80.0 - 94.0 fL AO Workflow SS Monocyte, Absolute 0.6 103/mcL Invalid Interpretation Code 0.2 - 1.0 10^3/mcL AO Workflow SS Monocytes/100 WBC (Bld) 10.3 % Invalid Interpretation Code 1.7 - 13.0 % AO Workflow SS Neutrophil, Absolute 3.1 103/mcL Invalid Interpretation Code 2.9 - 6.2 10^3/mcL AO Workflow SS Neutrophils/100 WBC (Bld) 56.9 % Invalid Interpretation Code 37.0 - 80.0 % AO Workflow SS Platelet mean volume (Bld) [Entitic vol] 8.5 fL Invalid Interpretation Code 7.4 - 10.4 fL AO Workflow SS Platelets (Bld) [#/Vol] 207 103/mcL Invalid Interpretation Code 130 - 400 10^3/mcL AO Workflow SS RBC (Bld) [#/Vol] 4.38 106/mcL Invalid Interpretation Code 4.20 - 5.40 10^6/mcL AO Workflow SS WBC (Bld) [#/Vol] 5.5 103/mcL Invalid Interpretation Code 4.6 - 10.8 10^3/mcL AO Workflow SS LABORATORYOrdered By: Desiree Espinoza on 01-10-2022 EBV IgG Negative (01/10/22 11:12 AM) Invalid Interpretation Code Negative AH Auto Viro/Sero SS EBV IgM Negative (01/10/22 11:12 AM) Invalid Interpretation Code Negative Auto Viro/Sero SS Nuclear Ab IF Ql (S) Neg 40 (01/10/22 11:12 AM) Invalid Interpretation Code Neg 40 Man Viro/Sero SS T. gondii IgG IF (S) [Titer] Negative (01/10/22 11:12 AM) Invalid Interpretation Code Negative Man Viro/Sero SS T. gondii IgM IF [Titer] Negative (01/10/22 11:12 AM) Invalid Interpretation Code Negative Man Viro/Sero SS Toxoplasma IgG Interp Antibody not detectedToxo IFA IgG specimens are screened at a 1:16 and 1:64 dilutions according to assay protocol to minimize false positive, polar staining of the substrate organisms. Sera of adults is screened at 1:10 for IGM. Sera of infants and neonates (including cord blood) is screened at a 1:4 dilution for IgM. IgM assays for toxoplasmosis must be evaluated cautiously. The serologic assay is not by itself diagnostic and should be interpreted in light of the patient's clinical condition. T. gondii-specific antibodies may be undetectable in patients who are immunocompromised. A positive IgM result should be repeated with a new specimen and methodology to confirm. The Toxo IgG is most useful for determining prior exposure to T. gondii. (Effective 06/26/17) Invalid Interpretation Code BLANCA Lazo Viro/Sero SS Toxoplasma IgM Interp Not detected Invalid Interpretation Code BLANCA Lazo Viro/Sero SS LABORATORYOrdered By: SYSTEM SYSTEM on 01-10-2022 GFR 92 ml/min/1.73sqm Invalid Interpretation Code AO Chemistry S GFR Non- 76 ml/min/1.73sqm Invalid Interpretation Code AO Chemistry S Streptolysin O Ab Qn 73.8 Int unit/mL Invalid Interpretation Code 25.0 - 250.0 Int unit/mL AH ADM SS LIPIDon 01-10-2022 Cholesterol [Mass/Vol] 133 mg/dL Normal 0-200 [facility] [place] Comment on above: Result Comment: Chol esterol Reference Interval: Less than 200 Desirable 200-239 Borderline high risk 240 and above High risk Performed By: #### F T3, FT4, VIDH, LIPID, GFR, CMP, TSH, FERR #### [address] [address] #### DEX, TOXO, EBV, ASO #### [address] [address] Cholesterol in HDL [Mass/Vol] 60 mg/dL Normal 40-60 [facility] [place] Comment on above: Performed By: #### F T3, FT4, VIDH, LIPID, GFR, CMP, TSH, FERR #### [address] [address] #### DEX, TOXO, EBV, ASO #### [address] [address] Cholesterol in LDL [Mass/Vol] 65 mg/dL Normal 0-130 [facility] [place] Comment on above: Performed By: #### F T3, FT4, VIDH, LIPID, GFR, CMP, TSH, FERR #### [address] [address] #### DEX, TOXO, EBV, ASO #### [address] [address] Triglyceride [Mass/Vol] 38 mg/dL Normal 0-150 [facility] [place] Comment on above: Result Comment: Trig lyceride Reference Interval: Less than 150 Normal 150-199 Borderline high risk 200-499 High risk 500 or higher Very high risk Performed By: #### F T3, FT4, VIDH, LIPID, GFR, CMP, TSH, FERR #### [address] [address] #### DEX, TOXO, EBV, ASO #### [address] [address] TSHon 01-10-2022 TSH Qn 1.76 m[IU]/L Normal 0.36-3.74 [facility] ([place] Comment on above: Performed By: #### F T3, FT4, VIDH, LIPID, GFR, CMP, TSH, FERR #### [place] [id number] #### DEX, TOXO, EBV, ASO #### [place] [address] VIDHon 01-10-2022 Vit. D 25-Hydroxy 23.4 ng/mL Normal [facility] ([place] Comment on above: Result Comment: Inte rpretive Values Based on Total 25(OH) Vitamin D: Deficient <20 ng/mL Insufficient 20 - <30 ng/mL Sufficient 30-100 ng/mL Performed By: #### F T3, FT4, VIDH, LIPID, GFR, CMP, TSH, FERR #### [place] [address] #### DEX, TOXO, EBV, ASO #### [address] [address] Vital Signs Date Time Vital Sign Value Performing Clinician Marco amezcua 12-21-2024 15:24-0400 Body mass index (BMI) [Ratio] 30.71 kg/m2 Kristin Pollock APRN.CNM Work Phone: [facility] 12-21-2024 15:24-0400 Body weight 90.27 kg Kristin Pollock APRN.CNM Work Phone: [facility] 12-21-2024 15:24-0400 Diastolic blood pressure 62 mm[Hg] Kristin Pollock F[employer] STEAMER.CNM Work Phone: [facility] 12-21-2024 15:24-0400 Systolic blood pressure 120 mm[Hg] Kristin Pollock [employer].CNM Work Phone: [facility] 11-30-2024 14:54-0400 Body mass index (BMI) [Ratio] 30.09 kg/m2 Kristin Pollock [employer].CNM Work Phone: [facility] 11-30-2024 14:54-0400 Body weight 88.45 kg Kristin Pollock [employer].CNM Work Phone: [facility] 11-30-2024 14:54-0400 Diastolic blood pressure 66 mm[Hg] Kristin Pollock F[employer] STE[employer]ER.CNM Work Phone: [facility] 11-30-2024 14:54-0400 Systolic blood pressure 118 mm[Hg] Kristin Pollock F[employer]ER.CNM Work Phone: [facility] 11-23-2024 10:24-0400 Body mass index (BMI) [Ratio] 29.94 kg/m2 Kristin Pollock [employer].CNM Work Phone: [facility] 11-23-2024 10:24-0400 Body weight 88 kg Kristin Pollock [employer].CNM Work Phone: [facility] 11-23-2024 10:24-0400 Diastolic blood pressure 58 mm[Hg] Kristin Pollock F[employer] STE[employer]ER.CNM Work Phone: [facility] 11-23-2024 10:24-0400 Systolic blood pressure 102 mm[Hg] Kristin Pollock F[employer] STE[employer]ER.CNM Work Phone: [facility] 10-26-2024 09:54-0400 Body mass index (BMI) [Ratio] 29.16 kg/m2 Kristin Pollock [employer].CNM Work Phone: [facility] 10-26-2024 09:54-0400 Body weight 85.73 kg Kristin Pollock [employer].CNM Work Phone: [facility] 10-26-2024 09:54-0400 Diastolic blood pressure 64 mm[Hg] Kristin Pollock F[employer] STE[employer]ER.CNM Work Phone: [facility] 10-26-2024 09:54-0400 Systolic blood pressure 106 mm[Hg] Kristin Pollock F[employer]ER.CNM Work Phone: [facility] 10-01-2024 15:08-0400 Body mass index (BMI) [Ratio] 29.32 kg/m2 Johanna Plotluzmaria [employer]ER.CNM Work Phone: [facility] 10-01-2024 15:08-0400 Body weight 86.18 kg Johanna Plotluzmaria [employer]ER.CNM Work Phone: [facility] 10-01-2024 15:08-0400 Diastolic blood pressure 62 mm[Hg] Johanna Plotluzmaria F[employer] STEAMER.CNM Work Phone: [facility] 10-01-2024 15:08-0400 Systolic blood pressure 114 mm[Hg] Johanna Plotluzmaria F[employer] STEAMER.CNM Work Phone: [facility] 08-31-2024 08:52-0400 Body height 171.5 cm Kristin Pollock [employer].CNM Work Phone: [facility] 08-31-2024 08:52-0400 Body mass index (BMI) [Ratio] 29.38 kg/m2 Kristin Pollock [employer]ER.CNM Work Phone: [facility] 08-31-2024 08:52-0400 Body weight 86.36 kg Kristin Pollock [employer].CNM Work Phone: [facility] 08-31-2024 08:52-0400 Diastolic blood pressure 68 mm[Hg] Kristin Pollock F[employer] STE[employer]ER.CNM Work Phone: [facility] 08-31-2024 08:52-0400 Systolic blood pressure 120 mm[Hg] Kristin Pollock F[employer]ER.CNM Work Phone: [facility] 11-09-2021 14:06-0400 Body height 172.7 cm Kristin Pollock APRN.CNTio Work Phone: [facility] 11-09-2021 14:06-0400 Body weight 81.65 kg Kristin Pollock APRN.CNM Work Phone: [facility] 11-09-2021 14:06-0400 Diastolic blood pressure 62 mm[Hg] Kristin Pollock APRN.CNTio Work Phone: [facility] 11-09-2021 14:06-0400 Systolic blood pressure 120 mm[Hg] Kristin Pollock APRN.CNM Work Phone: [facility] 06-22-2020 14:52-0500 Body Temperature 97.59 [degF] [facility] 06-22-2020 14:52-0500 Body weight 79.02 kg Bety [facility] 06-22-2020 14:52-0500 BP Diastolic 61 mm[Hg] Bety [facility] 06-22-2020 14:52-0500 BP Systolic 111 mm[Hg] Bety [facility] 06-22-2020 14:52-0500 Pulse (Heart Rate) 61 /min [facility]ety [facility] cecelia 06-22-2020 14:52-0500 Pulse Oximetry 99 % Bety [facility] Encounters Encounter Date Encounter Type Care Provider Facility Start: 02-17-2025 End: 02-17-2025 ambulatory JHOANNA PLOTLUZMARIA Facility:[facility] Start: 02-02-2025 End: 02-02-2025 ambulatory HENRY SAUCEDA Facility:[facility] Start: 01-27-2025 End: 01-27-2025 [facility] Start: 01-26-2025 End: 01-26-2025 [facility] Start: 01-18-2025 End: 01-18-2025 ambulatory JOHANNA PAZ Facility:[facility] Start: 12-21-2024 End: 12-21-2024 Patient encounter procedure Kristin Pollock APRN.CNM Work Phone: OB/Gynecology Comment on above: Screening for diabet es mellitus (Primary Dx); Encounter for supervision of normal first in second trimester ([facility]); Generalized anxiety disorder; Obsessive-compulsive disorder, unspecified type; 23 weeks gestation of (HCC) Start: 12-21-2024 End: 12-21-[facility] Start: 11-30-2024 End: 11-30-2024 Patient encounter procedure Kristin Pollock APRN.CNM Work Phone: OB/Gynecology Comment on above: Encounter for superv ision of normal first in second trimester (HCC) (Primary Dx); History of depression; Generalized anxiety disorder; Obsessive-compulsive disorder, unspecified type; 20 weeks gestation of ([facility]); RLQ abdominal pain Start: 11-30-2024 End: 11-30-2024 [facility] KRISTIN IKE Facility:[facility] Start: 11-30-2024 End: 11-30-2024 Telephone encounter Kristin Pollock APRN.CNM Work Phone: OB/Gynecology Comment on above: Pelvic Pain Start: 11-25-2024 End: 11-30-2024 Telephone encounter Kristin Pollock APRN.CNM Work Phone: OB/Gynecology Comment on above: Breast Pump RX Start: 11-23-2024 End: 11-23-2024 Patient encounter procedure Kristin Pollock APRN.CNM Work Phone: OB/Gynecology Comment on above: Encounter for superv ision of normal first in second trimester (HCC) (Primary Dx); 19 weeks gestation of (HCC) Encounter for anatomic survey ([facility]) (Primary Dx); 19 weeks gestation of ([facility]); Suspected anomaly not found Start: 11-23-2024 End: 11-23-2024 [facility] Facility:[facility] Start: 10-28-2024 End: 12-28-2024 Follow-up encounter Margoth Arndt MD Work Phone: OB/Gynecology Start: 10-26-2024 End: 10-26-2024 Patient encounter procedure Kristin Pollock APRN.CNM Work Phone: OB/Gynecology Comment on above: Encounter for superv ision of normal first in second trimester (HCC) (Primary Dx); 15 weeks gestation of (HCC); Rh negative state in antepartum period, second trimester ([facility]); History of depression; Generalized anxiety disorder Start: 10-26-2024 End: 10-26-2024 ambulatory [facility] Facility:[facility] Start: 10-06-2024 End: 12-06-2024 Follow-up encounter Margoth Arndt MD Work Phone: [place] Provider Adult Start: 10-06-2024 End: 10-06-2024 Telephone encounter Henry Sauceda MD Work Phone: OB/Gynecology Start: 10-01-2024 End: 10-01-2024 [facility] Start: 10-01-2024 End: 10-01-2024 Patient encounter procedure Johanna Paz APRN.CNM Work Phone: OB/Gynecology Comment on above: Generalized anxiety disorder (Primary Dx); Obsessive-compulsive disorder, unspecified type; Encounter for supervision of normal first in first trimester ([facility]); History of depression; 12 weeks gestation of ([facility]) with fetus of unknown gestational age ([facility]) Start: 10-01-2024 End: 10-01-2024 ambulatory [facility] Facility:[facility] Start: 09-24-2024 End: 09-24-2024 ambulatory Kristin Pollock APRN.CNTio Work Phone: OB/Gynecology Start: 09-24-2024 End: 09-24-2024 Patient encounter procedure Kristin Pollock [employer].CNM Work Phone: OB/Gynecology Comment on above: Upcoming appointment clarification Start: 09-01-2024 End: 11-01-2024 Follow-up encounter Margoth Arndt MD Work Phone: OB/Gynecology Start: 08-31-2024 End: 08-31-2024 Patient encounter procedure Kristin Pollock APRN.CNM Work Phone: OB/Gynecology Comment on above: with fetus of unknown gestational age (HCC) (Primary Dx); Generalized anxiety disorder; Obsessive-compulsive disorder, unspecified type; History of depression; Genetic screening; Encounter for supervision of normal first in first trimester (HCC); 7 weeks gestation of (HCC) Start: 08-31-2024 End: 08-31-2024 ambulatory KRISTIN POLLOCK Facility:[facility] Start: 01-10-2022 End: 01-15-2022 ambulatory NATASHA VARGAS MD Facility: Start: 01-10-2022 End: 01-14-2022 Outreach Lab NATASHA VARGAS MD [facility] Start: 11-09-2021 End: 11-09-2021 Patient encounter procedure Kristin Pollock APRN.CNM Work Phone: OB/Gynecology Comment on above: Encounter for gyneco logical examination (general) (routine) without abnormal findings (Primary Dx); Screening for cervical cancer; Screen for STD (sexually transmitted disease); Encounter for preconception consultation; control counseling Start: 11-09-2021 End: 11-09-2021 Patient encounter status Kristin Pollock APRN.CNM Work Phone: OB/Gynecology Start: 06-22-2020 End: 06-22-2020 Patient encounter procedure Bety Salas Arianna Work Phone: [facility] Comment on above: Viral URI with cough (Primary Dx) Procedures Date Procedure Procedure Detail Performing Clinician Start: 01-26-2025 Antibody screen NIA PAZ Comment on above: Order Comment: Speci men Type: BLOOD SPECIMEN Ordering Facility: [facility] Address: [address] [place] [address] Performed By: #### T SPN #### [facility] CLIA [id number] [address] [place] [address] [place] Start: 11-30-2024 Urnls dip stick/tabl et rgnt auto w/o microscopy Kristin Pollock APRN.CNM Work Phone: Start: 11-23-2024 Us preg uterus after 1st trimest / gestation Kristin Pollock APRN.CNM Work Phone: Start: 10-01-2024 Antibody screen NIA PAZ Comment on above: Order Comment: Speci men Type: BLOOD SPECIMENOrdering Facility: [facility] Address: [address] [place] [address] Performed By: #### T SPN ####[facility]CL[facility] [id number] [place] [address] [place] Start: 10-01-2024 Us preg uterus after 1st trimest / gestation Kristin Pollock APRN.CNM Work Phone: Start: 08-31-2024 Us uterus l imited 1/> fetuses Kristin Pollock APRN.CNM Work Phone: Plan of Treatment Date Care Activity Detail Author Start: 05-07-2026 Screening for malign ant neoplasm of cervix Cervical Cancer Screening [facility] Start: 02-17-2025 RSV Vaccine (1 - Ris k 1-dose series) RSV Vaccine (1 - Risk 1-dose series) [facility] Start: 01-18-2025 End: 01-18-2025 Patient encounter procedure 01/18/2025 8:00 AM EDT Routine Office Visit OB/Gynecology [address] [place] [address] Johanna Paz APRN.CNM [address] [place] [address] OB OB/Gynecology Comment on above: OB Start: 12-21-2024 End: 12-21-2024 Patient encounter procedure 12/21/2024 3:15 PM EDT Routine Office Visit OB/Gynecology [address] [place] [address] Kristin Pollock APRN.CNM [address] [place] [place] [address] OB OB/Gynecology Comment on above: OB Start: 12-21-2024 End: 03-22-2025 ANEMIA REFLEX PANEL ANEMIA REFLEX PANEL Lab Routine Encounter for supervision of normal first in second trimester (HCC) 23 weeks gestation of (HCC) Expected: 12/21/2024, Expires: 03/22/2025 [facility] Comment on above: Expected: 12/21/2024 , Expires: 03/22/2025 Start: 12-21-2024 End: 12-21-2025 GESTATIONAL GLUCOSE SCREEN, 1-HOUR, 50 GRAM, NON-FASTING GESTATIONAL GLUCOSE SCREEN, 1-HOUR, 50 GRAM, NON-FASTING Lab Routine Screening for diabetes mellitus Encounter for supervision of normal first in second trimester (HCC) 23 weeks gestation of (HCC) Expected: 12/21/2024, Expires: 12/21/2025 [facility] Work Phone: Comment on above: Expected: 12/21/2024 , Expires: 12/21/2025 Start: 12-21-2024 End: 12-21-2025 SYPHILIS TREPONEMAL W/REFLEX SYPHILIS TREPONEMAL W/REFLEX Lab Routine Encounter for supervision of normal first in second trimester (HCC) 23 weeks gestation of (HCC) Expected: 12/21/2024, Expires: 12/21/2025 [facility] Comment on above: Expected: 12/21/2024 , Expires: 12/21/2025 Start: 12-14-2024 Influenza vaccination [facility] Start: 11-23-2024 End: 11-23-2024 Patient encounter procedure [facility] Comment on above: anatomy OB 20 wks Start: 10-26-2024 End: 10-26-2024 Patient encounter procedure 10/26/2024 9:45 AM EDT Routine Office Visit OB/Gynecology [address] [place], [place] [id number] Kristin Pollock APRN.CN [address] [place] [address] OB - 16 wks OB/Gynecology Comment on above: OB - 16 wks Start: 10-01-2024 End: 10-01-2024 Patient encounter procedure [facility] Comment on above: Nuchal OB 12 wks Start: 10-01-2024 End: 12-31-2024 Chromosome 21 trisomy [Presence] in Blood or Tissue by Cytogenetics [facility] Work Phone: Comment on above: Expected: 10/01/2024 , Expires: 12/31/2024 Start: 08-31-2024 End: 11-30-2024 ANEMIA REFLEX PANEL ANEMIA REFLEX PANEL Lab Routine with fetus of unknown gestational age (HCC) Expected: 08/31/2024, Expires: 11/30/2024 [facility] Work Phone: Comment on above: Expected: 08/31/2024 , Expires: 11/30/2024 Start: 08-31-2024 End: 11-30-2024 Hemoglobin A1c in Blood HEMOGLOBIN A1C Lab Routine with fetus of unknown gestational age (HCC) Expected: 08/31/2024, Expires: 11/30/2024 [facility] Comment on above: Expected: 08/31/2024 , Expires: 11/30/2024 Start: 08-31-2024 End: 11-30-2024 HEMOGLOBIN EVALUATION CASCADE HEMOGLOBIN EVALUATION CASCADE Lab Routine with fetus of unknown gestational age (HCC) Genetic screening Expected: 08/31/2024, Expires: 11/30/2024 [facility] Comment on above: Expected: 08/31/2024 , Expires: 11/30/2024 Start: 08-31-2024 End: 11-30-2024 Hepatitis B virus surface Ag [Presence] in Serum HEPATITIS B SURFACE ANTIGEN Lab Routine with fetus of unknown gestational age (HCC) Expected: 08/31/2024, Expires: 11/30/2024 [facility] Comment on above: Expected: 08/31/2024 , Expires: 11/30/2024 Start: 08-31-2024 End: 11-30-2024 Hepatitis C virus Ab [Presence] in Serum HEPATITIS C ANTIBODY IA WITH CONFIRMATION Lab Routine with fetus of unknown gestational age (HCC) Expected: 08/31/2024, Expires: 11/30/2024 [facility] Comment on above: Expected: 08/31/2024 , Expires: 11/30/2024 Start: 08-31-2024 End: 11-30-2024 HIV 1+2 Ab [Presence] in Serum or Plasma by Immunoassay HIV 1/2 COMBO WITH REFLEX TO DIFFERENTIATION Lab Routine with fetus of unknown gestational age (HCC) Expected: 08/31/2024, Expires: 11/30/2024 [facility] Comment on above: Expected: 08/31/2024 , Expires: 11/30/2024 Start: 08-31-2024 End: 08-31-2025 OBSTETRIC ULTRASOUND WHI OBSTETRIC ULTRASOUND WHI Anc Imaging Routine with fetus of unknown gestational age (HCC) Expected: 08/31/2024, Expires: 08/31/2025 [facility] Comment on above: Expected: 08/31/2024 , Expires: 08/31/2025 Start: 08-31-2024 End: 11-30-2024 RUBELLA IGG ANTIBODY RUBELLA IGG ANTIBODY Lab Routine with fetus of unknown gestational age (HCC) Expected: 08/31/2024, Expires: 11/30/2024 [facility] Comment on above: Expected: 08/31/2024 , Expires: 11/30/2024 Start: 08-31-2024 End: 11-30-2024 SYPHILIS TREPONEMAL W/REFLEX SYPHILIS TREPONEMAL W/REFLEX Lab Routine with fetus of unknown gestational age (HCC) Expected: 08/31/2024, Expires: 11/30/2024 [facility] Comment on above: Expected: 08/31/2024 , Expires: 11/30/2024 Start: 08-31-2024 End: 11-30-2024 TYPE + SCREEN TYPE + SCREEN Blood Bank Routine with fetus of unknown gestational age (HCC) Expected: 08/31/2024, Expires: 11/30/2024 [facility] Comment on above: Expected: 08/31/2024 , Expires: 11/30/2024 Start: 12-15-2023 Covid-19 Vaccine ( season) Covid-19 Vaccine () [facility] Start: 2023 HPV Vaccine (1 - 3-d ose SCDM series) HPV Vaccine (1 - 3-dose SCDM series) [facility] Start: 12-14-2021 Influenza vaccination INFLUENZA (#1) [facility] Start: 12-15-2019 Influenza vaccination INFLUENZA (#1) [facility] Start: 2017 PAP TESTING PAP TESTING [facility] Start: 2015 Urine microalbumin profile [facility] Start: 2014 Depression Screening Depression Scre ening [facility] Start: 2014 HEPATITIS C SCREENING HEPATITIS C [facility] Start: 2014 Hepatitis C screening Hepatitis C [facility] Start: 2014 HIV SCREENING HIV SCREENING [facility] Start: 2014 HIV screening HIV Screening [facility] Start: 2010 PEDS TO ADULT TRANSITION ANNUAL ASSESSMENT PEDS TO ADULT TRANSITION ANNUAL ASSESSMENT [facility] Start: 2008 Adult depression screening assessment DEPRESSION SCREENING [facility] Start: 2008 PEDS TO ADULT TRANSITION INITIAL DISCUSSION PEDS TO ADULT TRANSITION INITIAL DISCUSSION [facility] Start: 2007 HPV VACCINE (1 - 2-d ose series) HPV VACCINE (1 - 2-dose series) [facility] Start: 2006 MENINGOCOCCAL B: Consider based on risk (1 of 2 - Risk Bexsero 2-dose series) MENINGOCOCCAL B: Consider based on risk (1 of 2 - Risk Bexsero 2-dose series) [facility] Start: 1996 COVID-19 VACCINE (#1) COVID-19 VACCI NE (#1) [facility] Bacteria identified in Urine by Culture BACTERIAL CULTURE, URINE Microbiology Routine with fetus of unknown gestational age (HCC) 08/31/2024 9:49 AM EDT [facility] Bacteria identified in Urine by Culture BACTERIAL CULTURE, URINE Microbiology Routine Encounter for supervision of normal first in second trimester ([facility]) Rh negative state in antepartum period, second trimester ([facility]) 10/26/2024 1:20 PM EDT [facility] Work Phone: Bacteria identified in Urine by Culture BACTERIAL CULTURE, URINE Microbiology Routine Encounter for supervision of normal first in second trimester ([facility]) RLQ abdominal pain 11/30/2024 4:40 PM EDT [facility] Work Phone: BACTERIAL VAGINOSIS NAAT BACTERIAL VAGINOSIS NAAT Lab Routine with fetus of unknown gestational age (HCC) 08/31/2024 9:49 AM EDT [facility] BEATRIZ/TRICHOMONAS NAAT BEATRIZ/TRICHOMONAS NAAT Lab Routine with fetus of unknown gestational age ([facility]) 08/31/2024 9:49 AM EDT [facility] Chlamydia trachomatis+Neisseria gonorrhoeae DNA [Presence] in Unspecified specimen by MIKO with probe detection GC/CHLAMYDIA DNA DET Lab Routine Screen for STD (sexually transmitted disease) 11/09/2021 2:41 PM T [facility] Work Phone: Chlamydia trachomatis+Neisseria gonorrhoeae DNA [Presence] in Unspecified specimen by MIKO with probe detection GONORRHEA/CHLAMYDIA NAAT Lab Routine with fetus of unknown gestational age ([facility]) 08/31/2024 9:49 AM EDT [facility] PAP FLUID CERVICAL SCREENING PAP FLUID CERVICAL SCREENING Lab Routine Encounter for gynecological examination (general) (routine) without abnormal findings Screening for cervical cancer 11/09/2021 2:41 PM T [facility] Work Phone: Immunizations Immunization Date Immunization Notes Care Provider [facility] 04-24-2021 SARS-CoV-2 mRNA (tozinameran) vaccine NATASHA VARGAS MD [facility] 08-15-2020 SARS-CoV-2 mRNA (tozinameran) vaccine NATASHA VARGAS MD [facility] Comment on above: Result Comment: 2021: TPVALL 07-18-2020 SARS-CoV-2 mRNA (tozinameran) vaccine NATASHA VARGAS MD [facility] Comment on above: Result Comment: 2021: TPVALL 02-14-2015 measles/mumps/rubell a virus vaccine NATASHA VARGAS MD [facility] 01-12-2015 measles/mumps/rubell a virus vaccine NATASHA VARGAS MD [facility] 11-13-2001 measles/mumps/rubell a virus vaccine NATASHA VARGAS MD [facility] 11-13-2001 poliovirus vaccine, inactivated NATASHA VARGAS MD [facility] 06-21-1997 measles/mumps/rubell a virus vaccine NATASHA VARGAS MD [facility] 06-21-1997 varicella virus vaccine LISSETH VARGAS MD [facility] 1996 hepatitis B pediatri c vaccine NATASHA VARGAS MD [facility] 1996 hepatitis B pediatri c vaccine NATASHA VARGAS MD [facility] 1996 hepatitis B pediatri c vaccine NATASHA VARGAS MD [facility] Payers Date Payer Category Payer [facility] BLUE ACCE PPO [id number] 2024 Unknown [id number] 2022 Unknown [id number] 2021 Unknown [employer] BLUE C[employer] PPO OOS [id number] 2021- [phone] [address] [place] [address] PPO [id number] 2020 Unknown [employer] [facility] [employer] [facility] [id number] 2020-Present PPO [id number] 1996 Unknown [id number] Social History Date Type Detail Facility Start: 06-22-2020 End: 05-07-2023 Tobacco smoking status NHIS Never smoker [facility] Start: 06-22-2020 End: 05-07-2023 Tobacco use and exposure Never used [facility] Start: 1995 Sex Assigned At Not on file [facility] Exposure to SARS-CoV -2 (event) Not sure [facility] Start: 1995 Sex Assigned At Female [facility] Sex Assigned At Sex [facility] Start: 08-31-2024 End: 10-01-2024 Alcoholic beverage intake Lifetime non-drinker (finding) [facility] Start: 05-07-2023 End: 08-31-2024 History of Social function [facility] Start: 05-07-2023 End: 08-31-2024 Tobacco use panel [facility] Start: 06-22-2020 National Score (1-10 0), lower number is lower risk 54 [facility] Start: 08-28-2024 Education 17 [facility] Start: 07-22-2024 [facility] Start: 11-08-2021 Gender identity Identifies as female gender (finding) [facility] Start: 11-08-2021 Sexual orientation Heterosexual (fin ding) [facility] Goals Date Patient Goal Desired Activity /State Personal health goal Clinical Notes 11-09-2021 to 01-27-2025 Quick Notes - Kristin Pollock APRN.[facility] - 12/21/2024 3:52 PM EDTPrenatal Quick Notes - Kristin Pollock APRN.[facility] - 12/21/2024 3:52 PM EDTPatient InstructionsPatient Instructions Note Date & Type Note Facility 01-27-2025 Note HNO ID: [id number] Author: NAN BASS RN Service: ? Author Type: Registered Nurse Type: Progress Notes Filed: 01/27/2025 11:45 Note Text: Lynette Norris 29 year old is here for her injection of Rhophylac. Lynette Norris Antibody Screen (no units) Date Value 01/26/2025 Negative Lynette Rolando Norris is RH Negative Rhophylac was given without incident. See immunizations for details of immunizations administered today. Provider Margoth Arndt MD was present in office at time of injection Lynette Norris was given her Rhophylac pocket card. Nan Bass RN [facility] 01-26-2025 Note HNO ID: [id number] Author: NAN BASS RN Service: ? Author Type: Registered Nurse Type: Progress Notes Filed: 01/26/2025 09:19 Note Text: Lynette Norris 29 year old is here for her injection of Rhophylac. Patient would like to wait until we have received her Type and Screen results before receiving Rhophylac. Patient had bleeding in her 1st and 2nd trimester. Dr. Arndt sent patient a [employer] message on 01/18/25 stating that if she had been sensitized it wouldn't cause any harm, but there would be no benefit to receiving the Rhophlac. Patient will wait for our call tomorrow and then reschedule nurse visit. Nan Bass RN [facility] 12-21-2024 Progress note Formatting of t his note might be different from the original. BERYL-S: Lynette Norris is a 29 year old female who presents at 23w6d with LEONIDAS:04/14/2025, by Last Menstrual Period for a routine visit. Denies headache, visual changes, chest pain, shortness of breath, leakage of fluid, or dysuria. Feeling well with OCD during and improved. Coping at this time. O: See flow sheet Gen: No apparent distress Abd: Gravid, nontender ASSESSMENT/PLAN: 1. Encounter for supervision of normal first in second trimester -Continue PNV -Continue ASA 2. 23 weeks gestation of -Anatomy US today 3. Rh negative state in antepartum period, second trimester -Reviewed rhogam at 28 wk 4. History of depression -Coping well at this time 5. Generalized anxiety disorder -Coping well at this time PTL precautions reviewed RTO in 4 weeks Kristin Pollock APRN.CNM [facility] 12-21-2024 Miscellaneous Notes BERYL-S: Lynette Norris is a 29 year old female who presents at 23w6d with LEONIDAS:04/14/2025, by Last Menstrual Period for a routine visit. Denies headache, visual changes, chest pain, shortness of breath, leakage of fluid, or dysuria. Feeling well with OCD during and improved. Coping at this time. O: See flow sheet Gen: No apparent distress Abd: Gravid, nontender ASSESSMENT/PLAN: 1. Encounter for supervision of normal first in second trimester -Continue PNV -Continue ASA 2. 23 weeks gestation of -Anatomy US today 3. Rh negative state in antepartum period, second trimester -Reviewed rhogam at 28 wk 4. History of depression -Coping well at this time 5. Generalized anxiety disorder -Coping well at this time PTL precautions reviewed RTO in 4 weeks Kristin Pollock APRN.CNM documented in this encounter [facility] 12-21-2024 Instructions Kristin Pollock APRN.CNM - 12/21/2024 3:21 PM EDT 50 gram Fresh Test Packet Bring 10 oz of water SIGNS AND SYMPTOMS OF LABOR 1. Contractions every 10 minutes or more often 2. Clear, pink, or brownish fluid (water) leaking from vagina 3. Feeling that baby is pushing down, pressure 4. Low, dull backache 5. Cramps that feel like a period 6. Cramps with or without diarrhea If you notice any of the above symptoms, contact our office at [phone] and ask to speak with a nurse. After hours, you can call doctors registry at [phone] OR call [facility] at [phone] and ask to have the doctor bonderizer operator paged. If you consider this an emergency, dial 0 or go to your nearest emergency department. NEED HELP? Are you dealing with a violent or abusive relationship? Are you a victim of rape or sexual assult? Call [facility] ([place]) 24 hour Crisis Hotline: 341.921.7331 or 347-882-6754. MANUAL Your Guide to a Healthy manual is now on-line. [email or web address] to download your free copy Oral Glucose Tolerance Test During Your provider has ordered an oral glucose tolerance test. For more information: My [facility] Oral Glucose Tolerance Test How do I prepare for my one-hour glucose test? You don t need to prepare for your one-hour glucose screening. Most care providers recommend avoiding foods high in sugar for breakfast. For example, pancakes, donuts or juice. If you re testing later in the day, be aware that eating large amounts of sugar for lunch may affect your results. Can you eat before a glucose screening test? Yes, you can eat normally before your glucose screening test. What can I expect on the day of the glucose screening? On the day of your glucose screening, follow instructions given to you by your care provider or the lab (if applicable). Be sure to know exactly where to go for the screening and if you need an appointment. Safe Sleep for [place] For more information: [email or web address] Safe Sleep Healthy babies are safest when sleeping on their backs at nighttime and during naps. Side sleeping is not as safe as back sleeping and is not advised. documented in this encounter [facility] 11-30-2024 Telephone encounter Note Order signed and faxed. Ania Clarke RN [facility] 11-30-2024 Miscellaneous Notes Order signed and faxed. Ania Clarke RN Received breast pump RX from [employer]. To BERYL to sign. Nan Bass RN documented in this encounter [facility] 11-30-2024 Miscellaneous Notes BERYL-S: Lynette Norris is a 29 year old female who presents at 19w5d with LEONIDAS:04/14/2025, by Last Menstrual Period for a routine visit. Denies headache, visual changes, chest pain, shortness of breath, leakage of fluid, or dysuria. Feeling well with OCD during and improved. Coping at this time. O: See flow sheet Gen: No apparent distress Abd: Gravid, nontender ASSESSMENT/PLAN: 1. Encounter for supervision of normal first in second trimester -Continue PNV -Continue ASA -Reviewed PN labs 2. 19 weeks gestation of -Anatomy US today 3. Rh negative state in antepartum period, second trimester -Reviewed rhogam at 28 wk 4. History of depression -Coping well at this time 5. Generalized anxiety disorder -Coping well at this time RTO in 4 weeks PTL precautions reviewed Kristin Pollock APRN.CNM documented in this encounter [facility] 11-30-2024 Progress note Formatting of t his note is different from the original. BERYL-S: Lynette Norris is a 29 year old female who presents at 19w5d with LEONIDAS:04/14/2025, by Last Menstrual Period for a routine visit. Denies headache, visual changes, chest pain, shortness of breath, leakage of fluid, or dysuria. Feeling well with OCD during and improved. Coping at this time. O: See flow sheet Gen: No apparent distress Abd: Gravid, nontender ASSESSMENT/PLAN: 1. Encounter for supervision of normal first in second trimester -Continue PNV -Continue ASA -Reviewed PN labs 2. 19 weeks gestation of -Anatomy US today 3. Rh negative state in antepartum period, second trimester -Reviewed rhogam at 28 wk 4. History of depression -Coping well at this time 5. Generalized anxiety disorder -Coping well at this time RTO in 4 weeks PTL precautions reviewed Kristin Pollock, F[employer]T HAT STEAMER.CNM [facility] 11-30-2024 Note HNO ID: [id number] Author: KRISTIN POLLOCK APRN.CNM Service: ? Author Type: Manager Support Services Type: Progress Notes Filed: 12/01/2024 09:04 Note Text: [facility] 11-30-2024 History of Presen t illness Narrative documented in this encounter [facility] 11-30-2024 Instructions Mildred Oconnell MA - 11/30/2024 2:50 PM EDT SEQUENTIAL SCREENINGS The [facility] offers sequential screenings for women who are interested in screenings for chromosomal abnormalities and certain defects during a . The sequential screen combines ultrasound and blood tests to determine the risk of chromosomal abnormalities, including Down's Syndrome (Trisomy 21) and Trisomy 18, as well as open neural tube defects including spina bifida. Ultrasound examination is performed between 11 weeks and 13 weeks gestational age. Blood tests are drawn after the ultrasound and again later in the between 15 and 21 weeks gestational age. Please let your physician know if you are interested in this testing. It will require an appointment with our wind turbine blade repair technician. This is not an ultrasound performed by a physician in our office during a routine visit. SIGNS AND SYMPTOMS OF LABOR 1. Contractions every 10 minutes or more often 2. Clear, pink, or brownish fluid (water) leaking from vagina 3. Feeling that baby is pushing down, pressure 4. Low, dull backache 5. Cramps that feel like a period 6. Cramps with or without diarrhea If you notice any of the above symptoms, contact our office at [phone] and ask to speak with a nurse. After hours, you can call doctors registry at [phone] OR call [facility] at [phone] and ask to have the doctor bonderizer operator paged. If you consider this an emergency, dial or go to your nearest emergency department. NEED HELP? Are you dealing with a violent or abusive relationship? Are you a victim of rape or sexual assult? Call [facility] ([place]) 24 hour Crisis Hotline: 998.291.3508 or 199-141-2076. MANUAL Your Guide to a Healthy manual is now on-line. Visit [email or web address] [email or web address] to download your free copy documented in this encounter [facility] 11-30-2024 Telephone encounter Note Patient notified and scheduled. Ania Clarke RN [facility] 11-30-2024 Miscellaneous Notes Patient notified and scheduled. Ania Clarke RN Can see her at 3pm if that works for her. Thank you, Kristin Pollock APRN.JR 20w5d Calling c/o RLQ pain. Stated that she has had it in the past and thought it was gas pains because gas-x usually helps. This morning it has not helped and seems worse than before. Does feel like she needs to pass gas at times, but can't. She was able to have small BM this morning though. Hurts worse with palpation and up and moving. Rates 7/10 at it's worse. No fever, bleeding or other concerns. No available appt as of now. Please advise. Ania Clarke RN documented in this encounter [facility] 11-30-2024 Telephone encounter Note Can see her at 3pm if that works for her. Thank you, Kristin Pollock APRN.CNM [facility] 11-30-2024 Telephone encounter Note 20w5d Calling c/o RLQ pain. Stated that she has had it in the past and thought it was gas pains because gas-x usually helps. This morning it has not helped and seems worse than before. Does feel like she needs to pass gas at times, but can't. She was able to have small BM this morning though. Hurts worse with palpation and up and moving. Rates 7/10 at it's worse. No fever, bleeding or other concerns. No available appt as of now. Please advise. Ania Clarke RN [facility] 11-25-2024 Telephone encounter Note Received breast pump RX from [employer]. To BERYL to sign. Nan Bass, RN T [facility] 11-23-2024 Progress note Formatting of t his note is different from the original. BERYL-S: Lynette Norris is a 29 year old female who presents at 19w5d with LEONIDAS:04/14/2025, by Last Menstrual Period for a routine visit. Denies headache, visual changes, chest pain, shortness of breath, leakage of fluid, or dysuria. Feeling well with OCD during and improved. Coping at this time. O: See flow sheet Gen: No apparent distress Abd: Gravid, nontender ASSESSMENT/PLAN: 1. Encounter for supervision of normal first in second trimester -Continue PNV -Continue ASA -Reviewed PN labs 2. 19 weeks gestation of -Anatomy US today 3. Rh negative state in antepartum period, second trimester -Reviewed rhogam at 28 wk 4. History of depression -Coping well at this time 5. Generalized anxiety disorder -Coping well at this time PTL precautions reviewed and when to call RTO in 4 weeks Kristin Pollock APRN.CNM [facility] 11-23-2024 Miscellaneous Notes JESSE: Lynette Norris is a 29 year old female who presents at 19w5d with LEONIDAS:04/14/2025, by Last Menstrual Period for a routine visit. Denies headache, visual changes, chest pain, shortness of breath, leakage of fluid, or dysuria. Feeling well with OCD during and improved. Coping at this time. O: See flow sheet Gen: No apparent distress Abd: Gravid, nontender ASSESSMENT/PLAN: 1. Encounter for supervision of normal first in second trimester -Continue PNV -Continue ASA -Reviewed PN labs 2. 19 weeks gestation of -Anatomy US today 3. Rh negative state in antepartum period, second trimester -Reviewed rhogam at 28 wk 4. History of depression -Coping well at this time 5. Generalized anxiety disorder -Coping well at this time PTL precautions reviewed and when to call RTO in 4 weeks Kristin Pollock APRN.CNM documented in this encounter [facility] 11-23-2024 Instructions Prudence Crane MA - 11/23/2024 10:24 AM EDT SEQUENTIAL SCREENINGS The [facility] offers sequential screenings for women who are interested in screenings for chromosomal abnormalities and certain defects during a . The sequential screen combines ultrasound and blood tests to determine the risk of chromosomal abnormalities, including Down's Syndrome (Trisomy 21) and Trisomy 18, as well as open neural tube defects including spina bifida. Ultrasound examination is performed between 11 weeks and 13 weeks gestational age. Blood tests are drawn after the ultrasound and again later in the between 15 and 21 weeks gestational age. Please let your physician know if you are interested in this testing. It will require an appointment with our wind turbine blade repair technician. This is not an ultrasound performed by a physician in our office during a routine visit. SIGNS AND SYMPTOMS OF LABOR 1. Contractions every 10 minutes or more often 2. Clear, pink, or brownish fluid (water) leaking from vagina 3. Feeling that baby is pushing down, pressure 4. Low, dull backache 5. Cramps that feel like a period 6. Cramps with or without diarrhea If you notice any of the above symptoms, contact our office at [phone] and ask to speak with a nurse. After hours, you can call doctors registry at [phone] OR call [facility] at [phone] and ask to have the doctor bonderizer operator paged. If you consider this an emergency, dial [phone] or go to your nearest emergency department. NEED HELP? Are you dealing with a violent or abusive relationship? Are you a victim of rape or sexual assult? Call [facility] ([place]) 24 hour Crisis Hotline: 235.950.4778 or 879-536-8205. MANUAL Your Guide to a Healthy manual is now on-line. Visit [email or web address] Deangelo to download your free copy documented in this encounter [facility] 10-26-2024 Progress note Formatting of t his note might be different from the original. BERYL-S: Lynette Norris is a 29 year old female who presents at 15w5d with LEONIDAS:04/14/2025, by Last Menstrual Period for a routine visit. Denies headache, visual changes, chest pain, shortness of breath, leakage of fluid, or dysuria. Episode of spotting after intercourse and with working out. Nothing in last 4 days. Having some urinary frequency and slight cramping on and off. O: See flow sheet Gen: No apparent distress Abd: Gravid, nontender ASSESSMENT/PLAN: 1. Encounter for supervision of normal first in second trimester -Continue PNV -Continue ASA -Reviewed PN labs 2. 15 weeks gestation of 3. Rh negative state in antepartum period, second trimester -Reviewed rhogam at 28 wk 4. History of depression 5. Generalized anxiety disorder 6. Urinary frequency -Urine culture today PTL precautions reviewed and when to call RTO in 4 weeks Kristin Pollock APRN.CNM [facility] 10-26-2024 Miscellaneous Notes JESSE: Lynette Norris is a 29 year old female who presents at 15w5d with LEONIDAS:04/14/2025, by Last Menstrual Period for a routine visit. Denies headache, visual changes, chest pain, shortness of breath, leakage of fluid, or dysuria. Episode of spotting after intercourse and with working out. Nothing in last 4 days. Having some urinary frequency and slight cramping on and off. O: See flow sheet Gen: No apparent distress Abd: Gravid, nontender ASSESSMENT/PLAN: 1. Encounter for supervision of normal first in second trimester -Continue PNV -Continue ASA -Reviewed PN labs 2. 15 weeks gestation of 3. Rh negative state in antepartum period, second trimester -Reviewed rhogam at 28 wk 4. History of depression 5. Generalized anxiety disorder 6. Urinary frequency -Urine culture today PTL precautions reviewed and when to call RTO in 4 weeks Kristin Pollock APRN.CNM documented in this encounter [facility] 10-26-2024 Instructions Luciano Goodwin LPN - 10/26/2024 9:45 AM EDT SEQUENTIAL SCREENINGS The [facility] offers sequential screenings for women who are interested in screenings for chromosomal abnormalities and certain defects during a . The sequential screen combines ultrasound and blood tests to determine the risk of chromosomal abnormalities, including Down's Syndrome (Trisomy 21) and Trisomy 18, as well as open neural tube defects including spina bifida. Ultrasound examination is performed between 11 weeks and 13 weeks gestational age. Blood tests are drawn after the ultrasound and again later in the between 15 and 21 weeks gestational age. Please let your physician know if you are interested in this testing. It will require an appointment with our wind turbine blade repair technician. This is not an ultrasound performed by a physician in our office during a routine visit. SIGNS AND SYMPTOMS OF LABOR 1. Contractions every 10 minutes or more often 2. Clear, pink, or brownish fluid (water) leaking from vagina 3. Feeling that baby is pushing down, pressure 4. Low, dull backache 5. Cramps that feel like a period 6. Cramps with or without diarrhea If you notice any of the above symptoms, contact our office at [phone] and ask to speak with a nurse. After hours, you can call doctors registry at [phone] OR call [facility] at [phone] and ask to have the doctor bonderizer operator paged. If you consider this an emergency, dial 9--1 or go to your nearest emergency department. NEED HELP? Are you dealing with a violent or abusive relationship? Are you a victim of rape or sexual assult? Call [facility] ([place]) 24 hour Crisis Hotline: 232.247.8143 or 059-899-2129. MANUAL Your Guide to a Healthy manual is now on-line. Visit [email or web address] to download your free copy documented in this encounter [facility] 10-06-2024 Telephone encounter Note agree if below. If recurs offer appt. Margoth Arndt MD [facility] 10-06-2024 Miscellaneous Notes agree if below. If recurs offer appt. Margoth Arndt MD 12w6d Pt calls stating she had intercourse last evening. Pt states after intercourse-she was peeing and noted light colored blood on toilet paper. Pt then placed a liner on after. Pt woke up this AM and states liner did have some on it. Did have some intermittent light pink spotting this AM as well; However, the last time she went to the bathroom noted none. Denies abdominal pain. Advised Pt to place pad on and monitor at this time. Advised pt that If her bleeding becomes heavy to where she is saturating a pad (front to back, side to side) in one hour or less for two hours or more, she develops shortness of breath, chest pain, dizziness, or abdominal pain to call the office immediately. Advised Pt that healthy guide would be resent -as it does review intercourse in . Advised Pt that it is common to have vaginal spotting (blood) after intercourse, but to continue to monitor at this time, call office with above concerns or any questions she may have, and to avoid intercourse until the spotting resolves. Pt voiced understanding. Please advise if additional guidance needs given-if not, no need to call Pt. Aurea Neville RN Next OB appt scheduled 10/26/24. documented in this encounter [facility] 10-06-2024 Telephone encounter Note 12w6d Pt calls stating she had intercourse last evening. Pt states after intercourse-she was peeing and noted light colored blood on toilet paper. Pt then placed a liner on after. Pt woke up this AM and states liner did have some on it. Did have some intermittent light pink spotting this AM as well; However, the last time she went to the bathroom noted none. Denies abdominal pain. Advised Pt to place pad on and monitor at this time. Advised pt that If her bleeding becomes heavy to where she is saturating a pad (front to back, side to side) in one hour or less for two hours or more, she develops shortness of breath, chest pain, dizziness, or abdominal pain to call the office immediately. Advised Pt that healthy guide would be resent -as it does review intercourse in . Advised Pt that it is common to have vaginal spotting (blood) after intercourse, but to continue to monitor at this time, call office with above concerns or any questions she may have, and to avoid intercourse until the spotting resolves. Pt voiced understanding. Please advise if additional guidance needs given-if not, no need to call Pt. Aurea Neville RN Next OB appt scheduled 10/26/24. [facility] 10-01-2024 Progress note Formatting of t his note might be different from the original. S: Lynette Norris is a 29 year old female who presents at 12 weeks gestation for a routine visit. Just completed 1st trimester ultrasound and will have labs drawn today. Energy increasing but still nauseated in morning and at bedtime. No emesis. Increased acid reflux. Denies headache, visual changes, chest pain, shortness of breath, vaginal bleeding, leakage of fluid, or dysuria. O: See flow sheet Gen: No apparent distress Abd: Gravid, nontender ASSESSMENT/PLAN: 1. Generalized anxiety disorder 2. Obsessive-compulsive disorder, unspecified type 3. Encounter for supervision of normal first in first trimester 4. History of depression 5. 12 weeks gestation of - Start Pepcid 20 mg PO BID - Continue vitamin and ASA daily - Desires MaterniT 21 today - RTO 4 weeks or sooner if needed Johanna Paz APRN.CNM [facility] 10-01-2024 Miscellaneous Notes S: Lynette Norris is a 29 year old female who presents at 12 weeks gestation for a routine visit. Just completed 1st trimester ultrasound and will have labs drawn today. Energy increasing but still nauseated in morning and at bedtime. No emesis. Increased acid reflux. Denies headache, visual changes, chest pain, shortness of breath, vaginal bleeding, leakage of fluid, or dysuria. O: See flow sheet Gen: No apparent distress Abd: Gravid, nontender ASSESSMENT/PLAN: 1. Generalized anxiety disorder 2. Obsessive-compulsive disorder, unspecified type 3. Encounter for supervision of normal first in first trimester 4. History of depression 5. 12 weeks gestation of - Start Pepcid 20 mg PO BID - Continue vitamin and ASA daily - Desires MaterniT 21 today - RTO 4 weeks or sooner if needed Johanna Paz APRN.CNM documented in this encounter [facility] 10-01-2024 Instructions Maxwell Guerrero MA - 10/01/2024 2:57 PM EDT SEQUENTIAL SCREENINGS The [facility] offers sequential screenings for women who are interested in screenings for chromosomal abnormalities and certain defects during a . The sequential screen combines ultrasound and blood tests to determine the risk of chromosomal abnormalities, including Down's Syndrome (Trisomy 21) and Trisomy 18, as well as open neural tube defects including spina bifida. Ultrasound examination is performed between 11 weeks and 13 weeks gestational age. Blood tests are drawn after the ultrasound and again later in the between 15 and 21 weeks gestational age. Please let your physician know if you are interested in this testing. It will require an appointment with our wind turbine blade repair technician. This is not an ultrasound performed by a physician in our office during a routine visit. SIGNS AND SYMPTOMS OF LABOR 1. Contractions every 10 minutes or more often 2. Clear, pink, or brownish fluid (water) leaking from vagina 3. Feeling that baby is pushing down, pressure 4. Low, dull backache 5. Cramps that feel like a period 6. Cramps with or without diarrhea If you notice any of the above symptoms, contact our office at [phone] and ask to speak with a nurse. After hours, you can call doctors registry at [phone] OR call [facility] at [phone] and ask to have the doctor bonderizer operator paged. If you consider this an emergency, dial 9-8-4 or go to your nearest emergency department. NEED HELP? Are you dealing with a violent or abusive relationship? Are you a victim of rape or sexual assult? Call [facility] [place] [facility] 24 hour Crisis Hotline: 564.611.8478 or 764-835-3741. MANUAL Your Guide to a Healthy manual is now on-line. Visit [email or web address] to download your free copy documented in this encounter [facility] 08-31-2024 Progress note Formatting of t his note might be different from the original. BERYL-NOB, see progress note. Desires NIPT and carrier screening. First trimester anatomy US and PN labs at 12 weeks. Kristin Pollock APRN.CNM [facility] 08-31-2024 Miscellaneous Notes [place], see progress note. Desires NIPT and carrier screening. First trimester anatomy US and PN labs at 12 weeks. Kristin Pollock APRN.CNM documented in this encounter [facility] 08-28-2024 Note HNO ID: [id number] Author: KRISTIN POLLOCK APRN.CNM Service: ? Author Type: Manager Support Services Type: Progress Notes Filed: 08/31/2024 12:58 Note Text: Finisher Accordion offered: Patient declines. INITIAL OB ASSESSMENT HPI: Bailey is a 29 year old White Female here to establish Obstetrical Care. Patient's last menstrual period was 07/08/2024 (exact date). from OB Dating Form. 28 days apart and regular cycles. was planned Complaints: Viral Illness/Cold, light cramping OB History Gravida1 Para0 Term0 Preterm0 AB0 Living0 SAB0 IAB0 Ectopic0 Multiple0 Live Births0 Previous history: Prior : never History of 4th degree laceration: NA History of shoulder dystocia: No History of Hypertensive disorders including pre-eclampsia or gestational hypertension: No History of gestational diabetes: No Patient's Risk Screening for delivery: Have you had a prior tabares between 20w and 36w6d? No How many pregnancies have you had before? 0 Did you have a previous baby with a GBS Infection? No Please select all that apply for any prior : N/A MEDICAL/PSYCHOSOCIAL HISTORY: History of hemorrhage or bleeding concerns: No Thyroid Disease: No History of chronic hypertension: No History of pre-existing diabetes: No BMI 29.38 kg/(m2) Last Pap: 05/14/2023 History of abnormal pap: No Prior treatment for cervical dysplasia: none. Last HPV: History of STDs: None Partner History of STDs: None Did you have a partner with Herpes? No Tobacco use: No E-Cigarette/Vaping Use: No Caffeine use: Yes Drug use: No Alcohol use: No Multivitamin with Folic acid: Yes Would refuse blood transfusion if medically necessary: No Social Needs: How often does this describe you? I don't have enough money to pay my bills: Never Within the past 12 months, have you worried that your food would run out before you had money to buy more? Never In the past 12 months, has lack of reliable transportation kept you from going to medical appointments or work, or from getting things needed for daily living? Never In the past 12 months, have you had any concerns about having a place to live, or about the condition or quality of your housing? Never Would you like more information on any of the following (please check all that apply)? Manager Support Services care Social History: Do you have any history of depression, anxiety, PTSD, or other mood problems? Yes Do you have a history of abuse or trauma that may impact your experience? No Are you currently employed? Yes Depression/Anxiety Screening: denies, admits to symptoms of depression. OB Depression and Anxiety Screening- This Encounter Over the past 2 weeks have you felt down, depressed, or hopeless? Negative Over the past two weeks, have you felt little interest or pleasure in doing things?? Negative Feeling nervous, anxious or on edge 0-Not at all Not being able to stop or control worrying 0-Not al all Anxiety Pre-Screening Total (If >/= 3 additional questions will be reviewed) 0 Genetic Screening: Partner present: No Patient verbalized knowledge of partner family health history: Yes Do you or your partner have any personal or family history of defects not previously discussed: No Do you have history of a complicated by anomaly, genetic condition, or demise: No Preeclampsia Risk Screening: Screening for prevention of preeclampsia: High risk factors: None Moderate risk ractors: Nulliparity OB Risk Screening: Completed, no positive findings documented. 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 triamcinolone (KENALOG) 0.025 % ointment Apply to affected area two times a day. For 14-30 days then PRN for discomfort 15 g 1 No current facility-administered medications for this visit. Allergies As of Date: 08/31/2024 (No Known Allergies) Fully Assessed 08/31/2024 Does patient have penicillin allergy: No REVIEW OF SYSTEMS: GENERAL: Negative for: Fever or Chills HEENT: Negative for: Headache, Impaired Vision, Ringing in Ears, Nosebleeds NECK: Negative for: Swelling, Pain, Stiffness RESPIRATORY: Negative for: Cough, Shortness of breath, Wheezing GASTROINTESTINAL: Negative for: Heartburn, Constipation, Diarrhea, Blood in stool, Vomiting MUSCULOSKELETAL: Negative for: Muscle or joint pain, stiffness, Joint swelling NEUROLOGIC/PSYCHIATRIC: Negative for: Weakness, Paralysis, Numbness, Tingling, Tremor, Anxiety, Depression, Memory loss SKI (more content not included)... [facility] 08-28-2024 History of Presen t illness Narrative Finisher Accordion offered: Patient declines. INITIAL OB ASSESSMENT HPI: Bailey is a 29 year old White Female here to establish Obstetrical Care. Patient's last menstrual period was 07/08/2024 (exact date). from OB Dating Form. 28 days apart and regular cycles. was planned Complaints: Viral Illness/Cold, light cramping OB History Gravida1 Para0 Term0 Preterm0 AB0 Living0 SAB0 IAB0 Ectopic0 Multiple0 Live Births0 Previous history: Prior : never History of 4th degree laceration: NA History of shoulder dystocia: No History of Hypertensive disorders including pre-eclampsia or gestational hypertension: No History of gestational diabetes: No Patient's Risk Screening for delivery: Have you had a prior tabares between 20w and 36w6d? No How many pregnancies have you had before? 0 Did you have a previous baby with a GBS Infection? No Please select all that apply for any prior : N/A MEDICAL/PSYCHOSOCIAL HISTORY: History of hemorrhage or bleeding concerns: No Thyroid Disease: No History of chronic hypertension: No History of pre-existing diabetes: No BMI 29.38 kg/(m^2) Last Pap: 05/14/2023 History of abnormal pap: No Prior treatment for cervical dysplasia: none. Last HPV: History of STDs: None Partner History of STDs: None Did you have a partner with Herpes? No Tobacco use: No E-Cigarette/Vaping Use: No Caffeine use: Yes Drug use: No Alcohol use: No Multivitamin with Folic acid: Yes Would refuse blood transfusion if medically necessary: No Social Needs: How often does this describe you? I don't have enough money to pay my bills: Never Within the past 12 months, have you worried that your food would run out before you had money to buy more? Never In the past 12 months, has lack of reliable transportation kept you from going to medical appointments or work, or from getting things needed for daily living? Never In the past 12 months, have you had any concerns about having a place to live, or about the condition or quality of your housing? Never Would you like more information on any of the following (please check all that apply)? Manager Support Services care Social History: Do you have any history of depression, anxiety, PTSD, or other mood problems? Yes Do you have a history of abuse or trauma that may impact your experience? No Are you currently employed? Yes Depression/Anxiety Screening: denies, admits to symptoms of depression. OB Depression and Anxiety Screening- This Encounter Over the past 2 weeks have you felt down, depressed, or hopeless? Negative Over the past two weeks, have you felt little interest or pleasure in doing things? Negative Feeling nervous, anxious or on edge 0-Not at all Not being able to stop or control worrying 0-Not al all Anxiety Pre-Screening Total (If >/= 3 additional questions will be reviewed) 0 Genetic Screening: Partner present: No Patient verbalized knowledge of partner family health history: Yes Do you or your partner have any personal or family history of defects not previously discussed: No Do you have history of a complicated by anomaly, genetic condition, or demise: No Preeclampsia Risk Screening: Screening for prevention of preeclampsia: High risk factors: None Moderate risk ractors: Nulliparity OB Risk Screening: Completed, no positive findings documented. Marital Status: Partner: Name: Raheem Age: 29 Occupation: [employer] Gender: Male PAST MEDICAL HISTORY Diagnosis Date Generalized anxiety disorder OCD (obsessive compulsive disorder) PAST SURGICAL HISTORY Procedure Laterality Date UPPER ARM/ELBOW SURGERY UNLISTED Left Current Outpatient Medications Medication Sig Dispense Refill PNV24/Iron Cbn&Gluc/FA/DSS/Dha (PRENATE ORAL) Take 1 tablet by mouth once daily. triamcinolone (KENALOG) 0.025 % ointment Apply to affected area two times a day. For 14-30 days then PRN for discomfort 15 g 1 No current facility-administered medications for this visit. Allergies As of Date: 08/31/2024 (No Known Allergies) Fully Assessed 08/31/2024 Does patient have penicillin allergy: No REVIEW OF SYSTEMS: GENERAL: Negative for: Fever or Chills HEENT: Negative for: Headache, Impaired Vision, Ringing in Ears, Nosebleeds NECK: Negative for: Swelling, Pain, Stiffness RESPIRATORY: Negative for: Cough, Shortness of breath, Wheezing GASTROINTESTINAL: Negative for: Heartburn, Constipation, Diarrhea, Blood in stool, Vomiting MUSCULOSKELETAL: Negative for: Muscle or joint pain, stiffness, Joint swelling NEUROLOGIC/PSYCHIATRIC: Negative for: Weakness, Paralysis, Numbness, Tingling, Tremor, Anxiety, Depression, Memory loss SKIN: Negative for: Rash, Itching GENITOURINARY: Negative for: vaginal itching, vaginal discharge, hematuria or dysuria SENSITIVE EXAM: The sensitive examination was discussed with the Patient or Patient's Authorized Pyrotechnic Assembler. As applicable, any other physician, advance practice provider, medical student, or other health professional student that will be observing or involved in the sensitive examination for educational or training purposes was discussed with the Patient or Authorized Pyrotechnic Assembler. The Patient or Authorized Pyrotechnic Assembler has agreed to proceed with the sensitive examination. (Sensitive examination includes inspection and/or palpation of the breasts, pelvis, prostate and anorectal regions). PHYSICAL EXAM: BP 120/68 Ht 5' 7.5 (1.72m) Wt 190 lb 6.4 oz (86.4kg) LMP 07/08/2024 BMI 29.36 kg/(m^2). GENERAL: pleasant in no apparent distress DERMATOLOGY: Normal, without lesions, non-icteric, and non-hirsute NECK: Supple, full range of motion, no adenopathy, and thyroid normal CHEST: Normal inspiratory effort BREAST: soft, non-tender, symmetric, no dominant mass, normal nipple-areolar complex, no lymphadenopathy, and no nipple discharge ABDOMEN: soft, non-tender, and no masses NEURO: alert and oriented x3,exam grossly non-focal PELVIS: External genitalia normal without lesions. Perineal body intact. No vaginal or cervical lesions. Cervix closed. Uterus 8 week size. No adnexal masses or tenderness. Clinical Pelvimetry: Pelvimetry clinically assessed as adequate Limited OB ultrasound exam: single intrauterine , positive cardiac activity, crown-rump length 8w2d, and normal bilateral adnexa Dating LMP on: 07/08/2024 GA by LMP 7 w + 5 d LEONIDAS by LMP: 04/14/2025 Ultrasound examination on: 08/31/2024 GA by U/S based upon: CRL GA by U/S 8 w + 2 d LEONIDAS by U/S: 04/10/2025 Assigned: based on the LMP, selected on 08/31/2024 Assigned GA 7 w + 5 d Assigned LEONIDAS: 04/14/2025 ASSESSMENT: 29 year old at 7w5d wks gestational age PLAN: 1) Patient oriented to practice. Patient given new OB orientation folder. Discussed nutrition, folic acid supplementation, dietary guidelines, exercise, smoking, alcohol, caffeine, and drug use. Discussed gestational weight gain guidelines. Discussed routine OB labs including STD/HIV. Discussed hemoglobin electrophoresis. Patient: Accepts Reviewed midwifery and clinical rehabilitation coordinator services that are available. 2) Screening: Hemoglobin A1C: ordered Baby Aspirin: The patient has been counseled about the potential benefits of low dose aspirin in and our recommendation that this be offered to all patients, regardless of whether they meet the high risk criteria specified above. She Accepts Aneuploidy Screening: Discussed aneuploidy screening, nuchal translucency/first trimester early anatomy ultrasound and NIPT. The risks/benefits and limitations of NIPT/aneuploidy screening were reviewed including the potential for false negative and false positive results. The availability of genetic counseling was reviewed. Information on aneuploidy screening was provided. The patient chooses to proceed with First trimester early anatomy ultrasound (12-13w6d) and NIPT (10 weeks) Myriad Carrier Screening: Discussed myriad carrier screening. We discussed the availability of professional-society guided carrier screening and reviewed the conditions screened and limitations of screening. The availability of genetic counseling was reviewed. Information on carrier screening was provided. The patient Accepts 3) Patient offered option of Virtual Visits. Patient prefers in person visits. Follow up in 4 weeks or sooner prn. Kristin Pollock APRN.CNM documented in this encounter [facility] 08-28-2024 Instructions Kristin Pollock APRN.JR - 08/28/2024 12:14 PM EDT Please select the following link to access the [facility] Your Guide to a Healthy . [email or web address] Ritual Jena Stork Mama Bear/Sprigs Try the vitamin B6 and Unisom (doxylamine) first. 1) Vitamin B6 50 mg by mouth twice daily. Take this daily until approximately 14 weeks for prevention. 2) Unisom 1/2 tablet by mouth at bedtime. May increase to full tablet if needed. If no improvement in nausea may up to a full tablet every 8 hours as needed. This may take a few days to set in. If you need something more like a prescription just let us know. If nausea is a problem in the morning, eat dry foods such as cereal, toast or crackers before getting out of bed. Try eating a high-protein snack such as lean meat or cheese before going to bed. (Protein takes longer to digest). Eat small meals or snacks every two to three hours rather than three large meals. Eat slowly and chew your food completely. Sip on fluids throughout the day. Avoid large amounts of fluids at one time. Try cool, clear fruit juices, such as apple or grape juice. Avoid spicy, fried or greasy foods. If you are bothered by strong smells, eat foods cold or at room temperature and avoid odors that bother you. You can also try neeraj extract 125 to 250mg every six hours to treat nausea. Below is also a link to Your Guide to a Healthy book. On page 5 lists safe medications in to refer to throughout if needed for various occasions. Healthy Guide If at anytime you cannot keep any food or fluid down over a 24 hour period call the office or go to ER for IV fluid hydration and nausea medication. Any further questions please call [phone] to speak to a nurse at the [facility] or send a [employer] message. Share with Women Nausea and Vomiting During Do all women have nausea or vomiting during ? About one in 4 women have only mild nausea. Three of every 10 women have nausea that is bad enough to interfere with their daily lives. Half of all women have both nausea and vomiting during the first months of . Nausea and vomiting during tends to be the worst at 8 to 10 weeks after your last menstrual period. It usually goes away by 12 to 16 weeks after your last period. Nausea and vomiting during is often called morning sickness but can occur all day long or at any time in the day or night. What causes nausea and vomiting during ? The cause of nausea and vomiting during is not known for sure. Changes in hormone levels may be involved. If your mother had morning sickness when she was , you may be more likely to have nausea and vomiting during . A history of motion sickness or stomach problems before you got may be another risk factor. Nausea during is worse if you are dehydrated (there is not enough fluid in your body) or if the level of sugar in your blood is low from not eating often enough. Are nausea and vomiting during dangerous? Mild nausea and vomiting may make you feel awful, but it will not hurt you or your baby. You can talk to your health care provider about ways to make you feel better if nausea and or vomiting is making it hard for you to do your normal activities. Lots of vomiting that keeps you from keeping any food down is rare, but severe vomiting can cause health problems. You should call your health care provider if any of the following happen: You are not able to keep any liquids or foods down for 24 hours You are vomiting several times a day or after every meal You have abdominal pain, difficulty urinating, or a fever You do not urinate as often as usual and your urine is dark in color You are weak, dizzy, or faint when you stand up You do not gain weight or you lose weight in a week How are nausea and vomiting treated? Nausea or vomiting during is treated in 3 steps: 1. Simple diet changes in what you eat and how often you eat may lessen nausea and help you avoid vomiting. This is all it takes for many women. 2. If diet changes are not enough, you can try eating neeraj or using acupressure bands. Both have been shown to decrease nausea in research studies. 3. If the nausea and/or vomiting are making it hard to do your usual activities, your health care provider can prescribe medication. Your health care provider can talk with you about how often you have nausea and are vomiting then help you decide which of the following ways to treat nausea and vomiting will be best for you. Step One: Lifestyle and Diet Changes Drink small amounts of fluids often all day long. Drinking a small amount at one time will also help the nausea lessen. Cold drinks may make you feel better than hot drinks will. Eat small meals every 2 to 3 hours. Do notwait to be hungry or thirsty before you eat or drink. Eat something plain like crackers, toast, or cereal in themorning. Some women find it helps to eat something before getting out of bed. Avoid eating foods that have strong odors. Avoid foods that are greasy, fried, spicy, or very hot. Try eating foods that are high in carbohydrates, such as potatoes, noodles, rice, or toast.[employer] [email or web address] Do not lie down right after eating. Some women say dairy products like yogurt are helpful, but this does not work for every woman. vitamins may make your nausea worse. If you take your vitamin at night or with food, it may not make you nauseated. Your provider can also help you find a vitamin that does not make your nausea worse. Vitamins that do not have iron in them are less likely to cause your stomach to be upset. Children s vitamins that have folic acid can also be used. If you stop taking a multivitamin, you should take one tablet of folic acid daily (0.4 mg, which is 400 micrograms per day). Folic acid tablets will not worsen nausea. Step Two: Treatments that Do Not Use Medications Neeraj Neeraj has been used for treating nausea since ancient times and can lessen nausea. Neeraj root tea, neeraj gum, neeraj snaps, neeraj syrup added to water, neeraj kvng, and all other forms of neeraj are safe to use in . You can also buy neeraj capsules at a drug store. The dose of neeraj that has been studied for nausea and vomiting in is 1 gram per day. Some forms of neeraj like tea or cookies do not list the dose. Ask your health care provider or pharmacist how often you should take neeraj products that do not have the dose of neeraj listed. Acupressure Bands Seabands are wristbands with a pressure point placed on the inside of your wrist. They are often used for motion sickness. Some women find them helpful for nausea during , and they are safe. Step Three: Medication There are several different types of nauseamedicines that work well and are safe for you and your baby. Because nausea and vomiting is caused by different triggers in your body, you and your health care provider can work together to find the medicine that is right for you. There are both mahd-cdk-rzenxic and prescription medicines that can be used if your nausea and vomiting are severe. Cvyb-Qgn-Nmeprmd Medication Wsev-gfo-ovpoqbf medications for motion sickness should not be taken during unless recommended by your health care provider. Many women have found that vitamin B6 is helpful for making mild nausea better. Vitamin B6 does not help stop vomiting. Your health care provider can help you choose the dose and how often to take vitamin B6 if you want to try it. Prescription Medication If your nausea and vomiting continues after trying lifestyle and diet changes and qbif-ylx-yhqtvlv medications or you are vomiting frequently, you may need a prescription medication. There are several different prescription medicines that have been studied and found to be safe for you and your baby. Your health care provider can talk with you about these medicines. For More Information [employer] Nausea and Vomiting Helpline http://www.motherisk.org/women/ morningSickness.jsp Low Dose Aspirin to start after 12 weeks to help prevent preeclampsia and high blood pressure This sheet talks about exposure to low dose aspirin in and while . This information should not take the place of medical care and advice from your healthcare provider.\ What is low dose aspirin? Aspirin is also known as acetylsalicylic acid. It is a common prescription and ambe-ipq-rrjfjrq medication similar to other non-steroidal inflammatory drugs (NSAIDs) like ibuprofen (Motrin ) and naproxen (Aleve ). Aspirin reduces inflammation, fever, and pain. Aspirin can prevent blood clots, which can make it useful in treating or preventing conditions like heart attacks and strokes. Low dose aspirin ranges from 60 to 150 mg daily, but the usual dose taken during to treat or prevent certain conditions is 81 mg daily.Regular strength and high strength aspirin and other NSAIDs are NOT preferred pain relievers during .Sometimes when people find out they are , they think about changing how they take their medication, or stopping their medication altogether. However, it is important to talk with your healthcare providers before making any changes to how you take this medication. Your healthcare providers can talk with you about the benefits of treating your condition and the risks of untreated illness during . I take low dose aspirin. Can it make it harder for me to get ? Low dose aspirin is not expected to make it harder to get . A study that included people who had 1 or 2 documented losses then asked to take daily low dose aspirin found that taking low dose aspirin at least 4 days a week increased the chance of a . Does taking low dose aspirin increase the chance for miscarriage? Miscarriage can occur in any . Taking low doses of aspirin is not thought to increase the chance of miscarriage. Some studies have shown that taking low dose aspirin before may help lower the chance of miscarriage in some people who have had one or more miscarriages before 20 weeks of . These findings are similar to studies that showed improved outcomes in people undergoing assisted reproductive technologies (fertility treatments) and were treated with low dose aspirin prior to implantation of the fertilized egg into the uterus. Does taking low dose aspirin increase the chance of defects? Every starts out with a 3-5% chance of having a defect. This is called the background risk. Studies on the use of low dose aspirin during have not found a higher chance of defects. Does taking low dose aspirin in increase the chance of other related problems? Taking low dose aspirin as directed by a healthcare provider is not expected to cause other problems. Studies have shown that low dose aspirin might improve outcomes in some people by increasing blood flow to and reducing inflammation or swelling in the uterus. Studies have also shown that low dose aspirin might lower the chances for preeclampsia (dangerously high blood pressure and complications) in people who are at high risk for this condition. However, people who are should only take low dose aspirin if their healthcare provider recommends it. Does taking low dose aspirin in affect future behavior or learning for the child? There are not many studies about long-term effects for children exposed to low dose aspirin during . However, studies have not found an increased chance for problems with physical or mental development in infants at 18 months of age. A study that looked at children up to 5 years of age who were born very early (before 33 weeks) and who were exposed to low dose aspirin during did not find an effect on their learning or behavior compared to children who were not exposed to low dose aspirin during . while taking low dose aspirin: The occasional use of low dose aspirin (75 mg daily to below 300 mg daily) is not expected to increase risks to a infant. Only small amounts of low dose aspirin enter the breast milk and adverse effects have not been reported in breastfed newborns or older infants. Healthcare providers might recommend low dose aspirin in some people during to treat certain medical conditions. However, regular strength aspirin (over 325 mg) is not preferred during . Aspirin eliminates from an s body more slowly than from an adult s body, so aspirin levels in the s body could build up over time with long-term use of aspirin. Using high dose aspirin can lower the body s ability to clot blood(could lead to easier bruising or bleeding). This is not likely to happen with low dose aspirin. Talk with your Healthcare provider about your questions. If a male takes low dose aspirin, could it affect fertility (ability to get partner ) or increase the chance of defects? There is very limited information about the effects of low dose aspirin on male reproduction. One study looked at men who attended an infertility clinic and were taking non-prescribed low dose aspirin at different doses and frequencies for at least six months. The study reported a decrease in the amount and quality of sperm, especially in those who used higher amounts of aspirin. Generally, it is not considered necessary for men to stop using low dose aspirin before trying to get their partner . However, men undergoing fertility treatment may want to talk with their healthcare providers about whether or not they need to stop taking aspirin. In general, exposures that fathers or sperm donors have are unlikely to increase the risks to a . For more information, please see the MotherToBaby fact sheet Paternal Exposures at https://mothertobaby.org/fact-s heets/mplktprp-ymjzrsgeg-znnybz ncy/. documented in this encounter [facility] 11-09-2021 Instructions Kristin Pollock APRN.CNM - 11/09/2021 2:31 PM EDT Whole food Vital Ritual [employer] Sprigs Jena [employer] [place] [employer] [facility] [employer] [facility] Instead of folic acid, I like folate or methylated folate. At least 400mcg ACOG Screening Guidelines The following health screening schedule is recommended by the [place] (ACOG). Some of these tests may be ordered or performed by your primary care doctor. Pap test screening The pap test looks at cells on the cervix (the opening from the vagina to the uterus) to look for cancer or pre-cancerous changes. These changes are caused by the human papillomavirus (HPV). Studies estimate that half of all women will test positive for this virus within 3 years of starting sexual activity. For young women with a normal immune system, 90% of HPV infections will resolve within 2 years. There is a vaccine available against some forms of HPV. This is recommended for girls and women age 9-45. For ages 9-14, two injections are given at 0 and 6 months. For ages 15-45, three injections are given at 0,2 and 6 months. Because this vaccine does not protect against all HPV types which can cause cervical cancer, women who received the vaccine still need pap tests. Pap smear screening should be started at age 21. The pap test should be done every 3 years from age 21-29. From age 30-65, pap smears can be done every 5 years if HPV test is negative or every 3 years if HPV testing is not done. For women over the age of 65, ACOG recommends against screening women who have had adequate prior screening and are not otherwise at high risk for cervical cancer. Women who have had a hysterectomy also do not need routine pap smear screening unless the pap smear was done for a cervical cancer or moderate to severe dysplasia. Breast cancer screening Mammogram should be performed every 1-2 years starting at age 40 and every year starting at age 50. Screening may be started earlier depending on family history. Cholesterol screening Lipid panel (cholesterol test) should be checked every 5 years starting at age 45. Diabetes screening Fasting glucose (blood sugar) test should be performed every 3 years starting at age 45. Colorectal cancer screening Starting at age 45, women should have a screening colonoscopy at least every 10 years. Screening may be started earlier depending on family history. Thyroid screening Thyroid function test (TSH) should be checked every 5 years starting at age 50. Bone mineral density screening All postmenopausal women age 65 and over and postmenopausal women with risk factors for osteoporosis should have a bone mineral density test performed. Risk factors include race, family history of osteoporosis, personal history of fractures, poor nutrition, smoking, heavy alcohol use, early menopause, low calcium intake and low body weight. Certain medical conditions and long-term use of some medications may also increase risk. Body max Index (BMI) Your body mass index (BMI) is a measure of your body fat based on your weight and height. The number that is calculated will tell you if you fall into the normal, overweight or obese category. BMI Table Normal weight: BMI is between 19 and 24.9 Overweight: BMI is between 25 and 29.9 Obese: BMI is 30 and above Why is BMI important? Being overweight or obese (BMI over 25) can exacerbate or put you at risk for getting certain diseases, like the ones listed below: Arthritis Asthma Cancer Diabetes Mellitus Type 2 Heart Attack High blood pressure Hypertension Hyperlipidemia Kidney failure Other Lung diseases Sleep Apnea Stroke How can I lose weight: Choosing healthy foods in small portions and exercising regularly is a good way to start. The following are a few tips: Choose foods and snacks higher in protein and fiber. Reduce the amount of sugary drinks (like soda) and snacks (cookies, sweets, etc) Cut back on the amount of carbohydrates eaten daily (bread, pasta, rice, cakes) Drink at least 8 glasses of water per day sometimes thirst feels like hunger stay hydrated Chew your food slowly to savor the taste and allow the signal that you are full to register in your brain Exercise/Activity Exercise improves your blood flow and circulation, enhances your mood and can you to maintain or lose weight. A brisk walk for 30 mins or longer 4-5 times per week is recommended but you can also use DVD's at home such as Walk Away the Pounds, Benny exercises, Yoga and others to get some variety. When do I need a referral? If you have tried all of the above and have not lost any weight, then you should ask your provider for a referral to a borematic operator or medical weight housing management officer who can help you reach your goals for being at your ideal body weight. Calcium and Vitamin D Supplementation (from the National Institutes of Health Office of Dietary Supplements 2011) Calcium is required by the body for blood vessel, muscle, hormone and nerve functioning. Most of the body's calcium is stored in the bones and teeth where it supports structure and function. Bone is continuously broken down and reformed. When bone breakdown exceeds formation, especially in postmenopausal women, bone loss can increase the risk of osteoporosis and fractures. In addition to low calcium intake, women who smoke, have a family history of osteoporosis, are thin, or , or who take certain medications such as cancer chemotherapy, seizure mediations and steroids are at increased risk of osteoporosis. The calcium requirements in women change with age. The National Institutes of Health (NIH) recommends: 1000mg elemental calcium for premenopausal women age 19-50 1200mg elemental calcium for postmenopausal women and all women over 50 Milk, yogurt, and cheese are rich natural sources of calcium and are the major food contributors in the [place]. For example, 8oz of milk (whole, lowfat or skim) contains about 300mg calcium, 8oz of yogurt contains 415mg. Nondairy sources include salmon and sardines and vegetables, such as [place] cabbage, kale, and broccoli. Foods fortified with calcium include many fruit juices, tofu and cereals. For more food calcium content information, visit http://ods.od.nih.gov/factsheet s/calcium. Calcium supplements come in several different forms. Remember that the recommendations are for millgrams (mg) of elemental calcium which may be less than the total weight of the supplement. The amount of elemental calcium is required to be printed on the label. Calcium carbonate is the least expensive form. It must be taken on a full stomach to be properly absorbed. Some patients may experience gas or constipation. Calcium phosphate and calcium citrate may be taken either with or without food and tend to have less side effects but are generally more expensive. Because of its ability to neutralize stomach acid, calcium carbonate is found in some yknj-hwi-keawcqv antacid products, such as Tums and Rolaids . Depending on its strength, each chewable pill or softchew provides 200 to 400 mg of elemental calcium. The percentage of calcium absorbed depends on the total amount of elemental calcium consumed at one time. Absorption is highest in doses <500mg. So a woman who takes 1,000mg/day of calcium from supplements should split the dose and take 500mg at two separate times during the day. Too much calcium can cause kidney stones, constipation, difficulty absorbing other nutrients and calcium buildup in blood vessels. Women under 50 should not exceed 2500mg/day (2000mg/day for women over 50) of calcium from food and supplements. Excessive alcohol and caffeine intake can inhibit absorption of calcium. Calcium can reduce the absorption of some medications if taken at the same time of day (bisphosphonates, thyroid medication, Phenytoin and other seizure medications, some antibiotics and iron supplements). Vitamin D promotes calcium absorption in the gut and maintains adequate blood levels of calcium and phosphate for normal bone growth and bone remodeling. Vitamin D also helps regulate cell growth as well as nerve, muscle and immune system function. Vitamin D is produced in the skin as a result of ultraviolet sunlight rays and must be altered in the liver and kidney to become its active form. Recommended intake according to the National Institutes of Health is 600 International Units (IU) for girls and women ages 1-70 and 800 IU for women over 70. Very few foods in nature contain vitamin D. The flesh of fatty fish (such as salmon, tuna, and mackerel) and fish liver oils are among the best sources. Small amounts of vitamin D are found in beef liver, cheese, mushrooms and egg yolks. Most people meet at least some of their vitamin D needs through exposure to sunlight. Season, time of day, length of day, cloud cover, smog, skin melanin content, and sunscreen are among the factors that affect UV radiation exposure and vitamin D synthesis. Despite the importance of the sun for vitamin D synthesis, it is prudent to limit exposure of skin to sunlight and avoid tanning beds. UV radiation is a carcinogen responsible for most of the estimated 1.5 million skin cancers that occur annually in the [place]. Lifetime cumulative UV damage to skin is also responsible for some age-associated dryness and other cosmetic changes. In supplements and fortified foods, vitamin D is available in two forms, D2 (ergocalciferol) and D3 (cholecalciferol). The two are equivalent at normal supplement doses. For women who require high supplement doses because of vitamin D deficiency, D3 may work better to raise blood levels. Some medications can prevent proper absorption of Vitamin D. These include laxatives, corticosteroids like prednisone, the seizure drugs phenobarbital and phenytoin, the weight-loss drug orlistat ( Xenical and AlliTM) and the cholesterol-lowering drug cholestyramine (Questran , LoCholest , and Prevalite ). Talk to your doctor about adjusting your recommended daily vitamin D dosage if you take these medications. You should not exceed 4000 mg of vitamin D supplementation daily unless specifically prescribed by your doctor. Gardasil Gardasil is a vaccine to protect against Human Papillomavirus (HPV) types 6, 11, 16, 18, 31,33,45, 52, 58. These viruses cause cancer and precancerous lesions on the cervix (opening between vagina and uterus), in the vagina and on the vulva (skin around the outside of the vagina) as well as genital warts. The vaccine cannot cause these diseases and cannot treat them if already present. Gardasil works best if given before contact with HPV. Most people are exposed to HPV soon after starting sexual activity. The vaccine is recommended between the ages of 9 and 45. Gardasil does not protect against all strains of HPV. Women who receive the vaccine still need to have regular pelvic exams and cervical cancer screening with the pap smear. You should ask your doctor if Gardasil is right for you if you have a weakened immune system, a bleeding disorder, plan to become soon or have a current illness causing fever. Gardasil is not recommended for women. You should be sure your doctor is aware of any allergies you have and all medications and herbal supplements you take. Gardasil is given to those ages 9-14 in 2 doses at 0 and 8 months. In ages 15-45, three injections are given at 0,2,6 months. Common side effects include pain, redness, itching and swelling at the injection site, nausea, fever, dizziness and fainting. Rare but potentially serious reactions have been reported. These include allergic reaction, swollen glands, joint and muscle pain, weakness and Guillain-[place] syndrome. documented in this encounter [facility] 11-09-2021 History of Presen t illness Narrative Bailey is a 26 year old No obstetric history on file. who presents for an annual gynecologic exam without complaints. Menses: cycles every 30 days and 5 days of flow. Contraception: Using condoms. Would like to conceive in the next year. HPV vaccine: No Last Pap: Never done HPV: N/A History of abnormal pap: No Last mammogram: never Time with current partner: for 6 months, 3 years together Pain with intercourse: No Postcoital bleeding: No Exercise: 3-4 times a week for 60 minutes. Type: cross fit/pilates Diet: Regular Seatbelt use: Yes OB History No obstetric history on file. 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 No bloating, early satiety, indigestion, or increased flatulence. Bladder: No dysuria, gross hematuria, urinary frequency, urinary urgency, or incontinence. Breast: No breast lumps, nipple d/c, overlying skin changes, redness or skin retraction. Allergies and current medication updated:Yes EXAM: LMP 06/18/2020 BP 120/62 Ht 5' 8 (1.727 m) Wt 180 lb (81.6 kg) LMP 10/31/2021 BMI 27.37 kg/m GENERAL: pleasant, female in no apparent distress HEENT: Normocephalic, atraumatic, mucus membranes moist and no lesions NECK: Supple, full range of motion, no adenopathy and thyroid normal DERMATOLOGY: Normal, without lesions, non-icteric and non-hirsute BREAST: soft, non-tender, symmetric, no dominant mass, normal nipple-areolar complex, no lymphadenopathy and no nipple discharge CHEST: Normal inspiratory effort ABDOMEN: soft, non-tender and no masses PELVIC: external genitalia normal, normal Bartholin's glands, urethra, Burgin's glands, no vulvar lesions, no cervical lesions, good vaginal support, physiologic discharge present, normal appearing perineal body and perianal region BIMANUAL: uterus normal size, shape and consistency, no adnexal masses and non-tender RECTOVAGINAL: deferred. NEURO: alert and oriented x3,exam grossly non-focal EXTREMITIES: normal ASSESSMENT/PLAN: 1. Encounter for gynecological examination (general) (routine) without abnormal findings - ICD9: V72.31, ICD10: Z01.419 (primary diagnosis) - Completed pelvic and breast exam - Encouraged monthly BSE - Follow up for annual exam in one year. - PAP FLUID CERVICAL SCREENING 2. Screening for cervical cancer - ICD9: V76.2, ICD10: Z12.4 - Completed pelvic and breast exam - Encouraged monthly BSE - Follow up for annual exam in one year. - PAP FLUID CERVICAL SCREENING 3. Screen for STD (sexually transmitted disease) - ICD9: V74.5, ICD10: Z11.3 - GC/CHLAMYDIA DNA DET 4. Encounter for preconception consultation - ICD9: V26.49, ICD10: Z31.69 5. control counseling - ICD9: V25.09, ICD10: Z30.09 1) Health maintenance: Pap done with reflex HPV. Nutrition, exercise and routine health maintenance exams reviewed. Calcium/Vitamin D supplementation information provided. Lipids/glucose: followed by PCP Vitamin D: followed by PCP HPV vaccine: discussed, not interested 2) Contraception: condoms. Contraceptive options reviewed and information provided. 3) STD screening: Accepted STD check for Gonorrhea and Chlamydia. 4) Follow up one year or sooner as needed 5) Reviewed pre-conception guidelines including folic acid supplementation, optimal timing of intercourse, avoidance of smoking, alcohol, and exposure to environmental chemicals. Discussed rubella and varicella titers and immunization if needed. Offered carrier screening. Reviewed need for evaluation if not within 12 months. Kristin Pollock APRN.CNM documented in this encounter [facility] Evaluation + Plan note Future Appointments Appointment Date:02/07/2022 09:30:00 AM Scheduled Provider:NATASHA VARGAS MD [facility]oint[facility] Type:[facility] Evaluation note Diagnosis Encounter for gynecological examination (general) (routine) without abnormal findings- Primary Screening for cervical cancer Screening for malignant neoplasm of the cervix Screen for STD (sexually transmitted disease) Screening examination for venereal disease Encounter for preconception consultation Other procreative management counseling and advice control counseling General counseling for initiation of other contraceptive measures [facility] Diagnosis with fetus of unknown gestational age (HCC)- Primary Generalized anxiety disorder Obsessive-compulsive disorder, unspecified type History of depression Personal history of other mental disorder Genetic screening Other genetic screening Encounter for supervision of normal first in first trimester ([facility]) Supervision of normal first 7 weeks gestation of ([facility]) state, incidental documented [facility] [facility] Diagnosis Generalized anxiety disorder- Primary Obsessive-compulsive disorder, unspecified type Encounter for supervision of normal first in first trimester ([facility]) Supervision of normal first History of depression Personal history of other mental disorder 12 weeks gestation of ([facility]) state, incidental [facility] Diagnosis with fetus of unknown gestational age (HCC) [facility] Diagnosis Encounter for supervision of normal first in second trimester ([facility])- Primary Supervision of normal first 15 weeks gestation of ([facility]) state, incidental Rh negative state in antepartum period, second trimester ([facility]) History of depression Personal history of other mental disorder Generalized anxiety disorder [facility] Diagnosis Rh negative state in antepartum period, second trimester ([facility])- Primary [facility]* Diagnosis Encounter for supervision of normal first in second trimester ([facility])- Primary Supervision of normal first 19 weeks gestation of ([facility]) state, incidental [facility] Diagnosis Encounter for anatomic survey ([facility])- Primary Encounter for anatomic survey 19 weeks gestation of ([facility]) state, incidental Suspected anomaly not found [facility] Encounter for supervision of normal first in second trimester ([facility])- Primary Supervision of normal first History of depression Personal history of other mental disorder Generalized anxiety disorder Obsessive-compulsive disorder, unspecified type 20 weeks gestation of ([facility]) state, incidental RLQ abdominal pain Abdominal pain, right lower quadrant [facility] Screening for diabetes mellitus- Primary Encounter for supervision of normal first in second trimester ([facility]) Supervision of normal first Generalized anxiety disorder Obsessive-compulsive disorder, unspecified type 23 weeks gestation of ([facility]) state, incidental documented in this encounter [facility] course Narrative No data available for this section [facility] Hospital Discharge instructions No data available for this section [facility] Progress note No data available for this section [facility] Instructions * Patient Instructions* Arianna, Bety Salas - 06/22/2020 3:06 PM EST Treatment for Viral Upper Respiratory Tract Infections Your body will kill off the virus by itself. Additionally, you can prime your body's immune system.This may help you get better more quickly. 1. Drink lots of fluids - at least one gallon of non-caffeinated liquids per day 2. Make sure you are eating well 3. Get plenty of rest - at least 8 hours of sleep per night for adults and more for children We do not have any medications that kill off these viruses. Antibiotics are used to treat bacterialinfections; however, they are not active against viral infections. There are some things that mighthelp you feel better, though. 1. Vaporizers, humidifiers, hot showers, and hot fluids help open respiratory and sinus passages 2. Sudafed is a safe and effective decongestant 3. [place] [employer] [employer] [place] may offer relief of nasal and head congestion 4. Declan's Vapor Rub placed on a hot towel and draped over the head may relieve congestion 5. Tylenol and Advil help control fevers and headaches 6. Salt water gargles help relieve sore throats 7. Chloraceptic spray or throat lozenges may also help relieve sore throat symptoms 8. Robitussin DM will help loosen up secretions and also provide relief from a cough Occasionally, viral infections turn into something more serious. You should see your doctor or return to the Urgent Care if: 1. You have fevers for longer than five days 2. You have fevers above 102 degrees 3. You are still sick after 10 days 4. You have shortness of breath or wheezing 5. After several days you are getting worse rather than better documented in this encounter History of Present Illness * Arianna Bety Maritza - 06/22/2020 3:00 PM EST 06/22/2020 Patient presents with: Cough: congestion x 2 days SUBJECTIVE: This is a 25 year old female that is here today for acute onset of multiple symptoms for 2 days. Dry coughing Chest congestion Rhinorrhea Sore throat Taking mucinex and nyquil The severity is mild and the symptoms are not improving. Pertinent medical history. No past medical history on file. ALLERGIES Patient has no known allergies. MEDICATIONS No current outpatient medications on file. No current facility-administered medications for this visit. SOCIAL HISTORY Social History Tobacco Use Smoking status: Never Smoker Smokeless tobacco: Never Used Substance Use Topics Alcohol use: Not on file Drug use: Not on file REVIEW OF SYSTEMS Review of Systems Constitutional: Negative. HENT: Positive for rhinorrhea and sore throat. Respiratory: Positive for cough. Cardiovascular: Negative. Gastrointestinal: Negative. Neurological: Negative. OBJECTIVE: BP 111/61 Pulse 61 Temp 36.4 C (97.6 F) (Tympanic) Wt 79 kg (174 lb 3.2 oz) LMP 06/18/2020 (Exact Date) SpO2 99% Physical Exam Vitals and nursing note reviewed. Constitutional: Appearance: Normal appearance. She is well-developed. She is not toxic-appearing. HENT: Head: Normocephalic and atraumatic. Right Ear: Tympanic membrane, ear canal and external ear normal. Left Ear: Tympanic membrane, ear canal and external ear normal. Nose: Nose normal. Mouth/Throat: Lips: [place]. Mouth: Mucous membranes are moist. Pharynx: Oropharynx is clear. Uvula midline. Cardiovascular: Rate and Rhythm: Normal rate and regular rhythm. Heart sounds: Normal heart sounds. Pulmonary: Effort: Pulmonary effort is normal. Breath sounds: Normal breath sounds and air entry. Musculoskeletal: Cervical back: Normal range of motion. Lymphadenopathy: Cervical: No cervical adenopathy. Skin: General: Skin is warm and dry. Neurological: Mental Status: She is alert and oriented to person, place, and time. ASSESSMENT/PLAN: 1. Viral URI with cough - ICD9: 465.9, ICD10: J06.9 - Discussed viral etiology and rationale for treatment. - Symptomatic treatment with prn analgesia - Supportive care with fluids and rest - PREDNISONE 20 MG TABLET - BENZONATATE 200 MG CAPSULE Bety Keller, [employer] documented in this encounter Assessments Diagnosis Viral URI with cough- Primary Acute upper respiratory infections of unspecified site Summary Purpose Family History No Family History Records FoundNo Family History Records Found Advance Directives No Advanced Directives Records FoundNo Advanced Directives Records Found Additional Source Comments Source Comments (unrecognize d section and content) In the event this informatio n is protected by the Federal Confidentiality of Alcohol and Drug Abuse Patient Records regulations: The Federal rules restrict any use of the information to criminally investigate or prosecute any alcohol or drug abuse patient.[facility] the event this information is protected by the Federal Confidentiality of Alcohol and Drug Abuse Patient Records regulations: The Federal rules restrict any use of the information to criminally investigate or prosecute any alcohol or drug abuse patient.[facility] the event this information is protected by the Federal Confidentiality of Alcohol and Drug Abuse Patient Records regulations: The Federal rules restrict any use of the information to criminally investigate or prosecute any alcohol or drug abuse patient.[facility] the event this information is protected by the Federal Confidentiality of Alcohol and Drug Abuse Patient Records regulations: The Federal rules restrict any use of the information to criminally investigate or prosecute any alcohol or drug abuse patient.[facility] the event this information is protected by the Federal Confidentiality of Alcohol and Drug Abuse Patient Records regulations: The Federal rules restrict any use of the information to criminally investigate or prosecute any alcohol or drug abuse patient.[facility] the event this information is protected by the Federal Confidentiality of Alcohol and Drug Abuse Patient Records regulations: The Federal rules restrict any use of the information to criminally investigate or prosecute any alcohol or drug abuse patient.[facility] the event this information is protected by the Federal Confidentiality of Alcohol and Drug Abuse Patient Records regulations: The Federal rules restrict any use of the information to criminally investigate or prosecute any alcohol or drug abuse patient.[facility] the event this information is protected by the Federal Confidentiality of Alcohol and Drug Abuse Patient Records regulations: The Federal rules restrict any use of the information to criminally investigate or prosecute any alcohol or drug abuse patient.[facility] the event this information is protected by the Federal Confidentiality of Alcohol and Drug Abuse Patient Records regulations: The Federal rules restrict any use of the information to criminally investigate or prosecute any alcohol or drug abuse patient.[facility] the event this information is protected by the Federal Confidentiality of Alcohol and Drug Abuse Patient Records regulations: The Federal rules restrict any use of the information to criminally investigate or prosecute any alcohol or drug abuse patient.[facility] the event this information is protected by the Federal Confidentiality of Alcohol and Drug Abuse Patient Records regulations: The Federal rules restrict any use of the information to criminally investigate or prosecute any alcohol or drug abuse patient.[facility] the event this information is protected by the Federal Confidentiality of Alcohol and Drug Abuse Patient Records regulations: The Federal rules restrict any use of the information to criminally investigate or prosecute any alcohol or drug abuse patient.[facility] the event this information is protected by the Federal Confidentiality of Alcohol and Drug Abuse Patient Records regulations: The Federal rules restrict any use of the information to criminally investigate or prosecute any alcohol or drug abuse patient.[facility] the event this information is protected by the Federal Confidentiality of Alcohol and Drug Abuse Patient Records regulations: The Federal rules restrict any use of the information to criminally investigate or prosecute any alcohol or drug abuse patient.[facility] the event this information is protected by the Federal Confidentiality of Alcohol and Drug Abuse Patient Records regulations: The Federal rules restrict any use of the information to criminally investigate or prosecute any alcohol or drug abuse patient.[facility] the event this information is protected by the Federal Confidentiality of Alcohol and Drug Abuse Patient Records regulations: The Federal rules restrict any use of the information to criminally investigate or prosecute any alcohol or drug abuse patient.[facility] the event this information is protected by the Federal Confidentiality of Alcohol and Drug Abuse Patient Records regulations: The Federal rules restrict any use of the information to criminally investigate or prosecute any alcohol or drug abuse patient.[facility] Reason for Visit (unrecogniz ed section and content) Reason Comments Cough congestion x 2 days Reason Comments Well Woman Reason Comments Initial OB Visit Reason Onset Date Comments Care 10/01/2024 Reason Comments US Specialty Diagnoses / Procedures Referred By Emily t Referred To Contact [facility] Diagnoses with fetus of unknown gestational age (HCC) Procedures OBSTETRIC ULTRASOUND WHI US PREG UTERUS AFTER 1ST TRIMEST GESTATION Kristin Pollock APRN.JR [address] [place] [address] Phone: tel: fax: [facility] [address] [place] [address] Referral ID Status Reason Start Date Expiration Date V isits Requested Visits Authorized [id number] Closed Auto-Generate d Referral 08/31/2024 08/31/2025 1 1 Reason Onset Date Comments Care 10/26/2024 Reason Onset Date Comments Care 11/23/2024 Referral ID Status Reason Start Date Expiration Date V isits Requested Visits Authorized [id number] Closed Auto-Generate d Referral 08/31/2024 08/31/2025 1 1 Reason Comments Pelvic Pain Reason Comments Breast Pump RX Reason Onset Date Comments Care 11/30/2024 Reason Onset Date Comments Care 12/21/2024 Care Team (unrecognized sect ion and content) Care Team Personnel Name: NATASHA VARGAS MD Position: P4 Physician - Primary Care Med Service: Active Provider Member Role: Primary Care Physician Address: Address: [address] [place] [id number]- Care Team Related Persons Name: RAHEEM NORRIS Address: Home [address] [place], [place] [id number] [place] Address: [facility] [id number] [place] [phone] INFORMATION SOURCE (unrecogn ized section and content) DATE CREATED AUTHOR 01/16/2022 [facility] DATE CREATED AUTHOR AUTHOR'S ORGANIZ ATION 02/19/2025 [facility] FOR RECORDS PERTAINING TO PATIENTS WHO ARE OR HAVE BEEN ENROLLED IN A CHEMICAL DEPENDENCY/SUBSTANCEABUSE PROGRAM, SOME INFORMATION MAY BE OMITTED. This clinical summary was aggregated from multiple sources. Caution should be exercised in using it in the provision of clinical care. This summary normalizes information from multiple sources, and as a consequence, information in this document may materially change the coding, format and clinical context of patient data. In addition, data may be omitted in some cases. CLINICAL DECISIONS SHOULD BE BASED ON THE PRIMARY CLINICAL RECORDS. [employer] provides no warranty or guarantee of the accuracy or completeness of information in this document.
--- OUTSIDE RECORDS SUMMARY | 2025-04-14 15:27 | XMS RPT_ITS | CCD ---
Author Organization [facility] Care Team Providers Care Forensic Anthropologist Name Role Phone Unavailable Primary Care Provider [...] qDay, # 30 tab(s), 5 Refill(s), Pharmacy: [id number]/pharmacy #[id number], OCD (obsessive compulsive disorder), 170, cm, [...] Comment on above: Take 1 capsule by [facility] times daily as needed for Cough. [...] on above: Take 2 tablets by [facility] once daily for 5 days. triamcinolone acetonide 0.93258 mg/mg topical ointment (1 source) Corticosteroid Start: [...] Translations: [Rh negative state in antepartum period ([facility])] Onset: 10-06-2024 Episodic Residual codes; unclassified (1 source) 20 weeks gestation of ; Translations: [20 weeks gestation of ([facility])] Onset: 11-30-2024 Episodic Residual codes; unclassified (1 source) 19 weeks gestation of ; Translations: [19 weeks gestation of ([facility])] Onset: 11-23-2024 Episodic Unclassified (1 source) Patient [...] negative state in antepartum period, second trimester ([facility])] Onset: 10-06-2024 Episodic Other female genital disorders [...] of ; Translations: [15 weeks gestation of ([facility])] Onset: 10-26-2024 Episodic Residual codes; unclassified (1 source) 12 weeks gestation of ; Translations: [12 weeks gestation of ([facility])] Onset: 10-01-2024 Episodic Screening and history of mental health and substance abuse codes (20 sources) H/O: depression; Translations: [Personal history of other mental and behavioral disorders] Onset: 08-31-2024 08-31-2024 Episodic Results Test Name Value Interpretation Reference Range Facility [facility] 01-27-2025 CNNURSE Nurse Visit (OBGYWM) LYNETTE NORRIS ([id number]) 1995 F Date Time Provider Department 01/27/25 11:30 AM [facility]SE [facility] W[facility] OBGYWM During your visit today, [...] Visit Diagnosis:Rh negative state in antepartum period ([facility]) [O26.899, Z67.91] Prescriptions as of 01/27/2025 - [...] of normal i*08/31/2024 7 weeks gestation of ([facility]) [Z3A.01] 08/31/2024 10/06/2024 Rh negative state in antepartum period, second *10/06/2024 Encounter Status:Closed by NAN BASS on 01/27/25 Normal [facility] 01-27-2025 [facility] Telephone (OBGYWM) NORRISLYNETTE COVINGTON ([id number]) 1995 F Date Time Provider Department 01/27/25 [...] Status:Closed by NAN BASS on 01/27/25 Normal [facility] CBC panel Auto (Bld)on 01-26 Erythrocyte distribution width (RBC) [Ratio] 12.8 % Normal 11.5-15.0 [facility] Comment on above: Order Comment: Speci larry Type: BLOOD SPECIMENOrdering Facility: [facility] Address: [address] [place] [address] Performed By: #### 5 8410-2 ####[facility] [id number] [place] [address] [place] Hematocrit (Bld) [Volume fraction] 35.8 % Low 36.0-46.0 [facility] Comment on above: Order Comment: Hazel juarez Type: BLOOD SPECIMENOrdering Facility: [facility] Address: [address] [place] [address] Performed By: #### 5 8410-2 ####[facility] [id number] [place] [address] [place] Hemoglobin (Bld) [Mass/Vol] 12.7 g/dL Normal 11.5-15.5 [facility] Comment on above: Order Comment: Hectori larry Type: BLOOD SPECIMENOrdering Facility: [facility] Address: [address] [place] [address] Performed By: #### 5 8410-2 ####[facility] [id number] [place] [address] [place] MCH (RBC) [Entitic mass] 32.3 pg Normal 26.0-34.0 [facility] Comment on above: Order Comment: Speci men Type: BLOOD SPECIMENOrdering Facility: [facility] Address: [address] [place] [address] Performed By: #### 5 8410-2 ####[facility] CENTERNCRADHA [id number] [place] [address] [place] MCHC (RBC) [Mass/Vol] 35.5 g/dL Normal 30.5-36.0 [facility] Comment on above: Order Comment: Speci men Type: BLOOD SPECIMENOrdering Facility: [facility] Address: [address] [place] [address] Performed By: #### 5 8410-2 ####[facility] CENTERMORYadira [id number] [place] [address] [place] MCV (RBC) [Entitic vol] 91.1 fL Normal 80.0-100.0 [facility] Comment on above: Order Comment: Speci men Type: BLOOD SPECIMENOrdering Facility: [facility] Address: [address] [place] [address] Performed By: #### 5 8410-2 ####[facility] CENTERNCSHRINERS HOSPITALS FOR CHILDREN [id number] [place] [address] [place] Nucleated RBC (Bld) [#/Vol] 10*3/uL Normal <0.01 [facility] Comment on above: Order Comment: Speci men Type: BLOOD SPECIMENOrdering Facility: [facility] Address: [address] [place] [address] Performed By: #### 5 8410-2 ####[facility] CENTERNCLI [id number] [place] [address] [place] Platelet mean volume (Bld) [Entitic vol] 9.5 fL Normal 9.0-12.7 [facility] Comment on above: Order Comment: Speci men Type: BLOOD SPECIMENOrdering Facility: [facility] Address: [address] [place] [address] Performed By: #### 5 8410-2 ####[facility]UCENCL[facility] [id number] [place] [address] [place] Platelets (Bld) [#/Vol] 218 10*3/uL Normal 150-400 [facility] Comment on above: Order Comment: Speci men Type: BLOOD SPECIMENOrdering Facility: [facility] Address: [address] [place] [address] Performed By: #### 5 8410-2 ####[facility]ENTERNCLIA [id number] [place] [address] [place] RBC (Bld) [#/Vol] 3.93 10*6/uL Normal 3.90-5.20 [facility] Comment on above: Order Comment: Speci men Type: BLOOD SPECIMENOrdering Facility: [facility] Address: [address] [place] [address] Performed By: #### 5 8410-2 ####[facility]ENTERNCLIA [id number] [place] [address] [place] WBC (Bld) [#/Vol] 9.05 10*3/uL Normal 3.70-11.00 [facility] Comment on above: Order Comment: Speci men Type: BLOOD SPECIMENOrdering Facility: [facility] Address: [address] [place] [address] Performed By: #### 5 8410-2 ####[facility]ENTERNCLIA [id number] [place] [address] [place] CNNURSEon 01-26-2025 CNNURSE Nurse Visit (OBGYWM) LYNETTE NORRIS ([id number]) 1995 F Date Time Provider Department 01/26/25 9:00 AM [facility]SE [facility] WS OBGYWM During your visit today, [...] 2nd trimester. Dr. Arndt sent patient a Ceon message on 01/18/25 stating that if she [...] Status:Closed by NAN BASS on 01/26/25 Normal [facility] 01-26-2025 CNPN Telephone (OBGYWM) LYNETTE NORRIS ([id number]) 1995 F Date Time Provider Department 01/26/25 [...] on: 01/26/2025 08:58 AM Modules accepted: Ursula Euceda APRN.CNP 01/26/2025 8:59 AM Signed FiledALFRED Cui [...] Visit Diagnosis:Rh negative state in antepartum period ([facility]) [O26.899, Z67.91] Order(s):THER/PROPH/ DIAG INJ, SC/IM [[id number]] Order #: [id number] RhoD immune globulin 300 mcg injection (RHOPHYLAC)Disp: [...] Status:Closed by NAN BASS on 01/26/25 Normal [facility] GESTATIONAL GLUCOSE SCREEN, 1-HOUR, 50 GRAM, NON-FASTINGon 01-26-2025 Glucose [Mass/Vol] 86 mg/dL Normal 74-134 [facility] Comment on above: Order Comment: Speci men Type: BLOOD SPECIMENOrdering Facility: [facility] Address: [address] [place] [address] Result Comment: [facility] Congress of Obstetricians and Gynecologists (Dennis/Ritu) guidelines state a gestational diabetes mellitus positive screen is made, in women not previously diagnosed with overt diabetes, when the 1 hr plasma glucose level is equal to or above 140 mg/dL. The [facility] Electrical Manufacturing Technician and [facility] [place] recommends a 135 mg/dL cutoff. Performed By: #### G LTGST ####[facility] [id number] [place] [id number] [place] Reagin and Treponema pallidu m IgG and IgM [Interp]on 01-26-2025 T. pallidum IgG+IgM IA Ql (S) Non-Reactive Normal Nonreactive [facility] Comment on above: Order Comment: Speci men Type: BLOOD SPECIMENOrdering Facility: [facility] Address: [address] [place] [address] Performed By: #### 7 3752-8 ####[facility] LABCLIA [id number] [place] [address] [place] Reagin+T pallidum IgG+IgM Se rPl-Impon 01-26-2025 Reagin and Treponema pallidum IgG and IgM [Interp] Cannot exclude recent Treponemal infection if specimen collected within 7-10 days after appearance of suspect lesions or 2-3 weeks after an exposure. Clinical correlation is required. Normal [facility] Comment on above: Order Comment: Speci men Type: BLOOD SPECIMENOrdering Facility: [facility] Address: [address] [place] [address] Performed By: #### 7 3752-8 ####[facility] LABCLIA [id number] [place] [address] [place] TYPE + SCREEN PRENATALon ABO A Normal [facility] Comment on above: Order Comment: Speci men Type: BLOOD SPECIMEN [facility] Address: [address] [place] [address] Performed By: #### T SPN #### [facility] CLIA [id number] [address] [place] [address] [place] Rh Nom (Bld) Negative Normal [facility] Comment on above: Order Comment: Speci men Type: BLOOD SPECIMEN [facility] Address: [address] [place] [address] Performed By: #### T SPN #### [facility] CLIA [id number] [address] [place] [address] [place] TYPE AND SCREEN EXPIRATION 01/29/2025 23:59 Normal [facility] Comment on above: Order Comment: Speci men Type: BLOOD SPECIMEN [facility] Address: [address] [place] [address] Performed By: #### T SPN #### [facility] CLIA [id number] [address] [place] [address] [place] AMYLASEon 11-30-2024 Amylase [Catalytic activity/Vol] 48 U/L 30 - 104 U/L [facility] Amylase SerPl-cCncon 025 Amylase [Catalytic activity/Vol] 48 U/L Normal 30-104 [facility] Comment on above: Order Comment: Speci men Type: BLOOD SPECIMENOrdering Facility: [facility] Address: [address] [place] [address] Performed By: #### 1 798-8, 3040-3 ####[facility] LABCLIA [id number] [place] [address] [place] Amylase [Catalytic activity/ Vol]on 11-30-2024 Interpretation and review of laboratory results Normal [facility] Bacteria Ur Culton Bacteria identified Cx Nom (U) ORGANISM ID: 1 10,000 -<50,000 CFU/ml Normal urogenital butch Normal [facility] Comment on above: Performed By: #### 6 30-4 ####[facility] LABCLIA [id number] [place] [address] [place] CBC W Auto Differential pane l (Bld)on 11-30-2024 Basophils (Bld) [#/Vol] [facility] Basophils/100 WBC (Bld) 0.2 % [facility] Differential cell count method Nom (Bld) Auto [facility] Eosinophils (Bld) [#/Vol] 0.19 10*3/uL [facility] Eosinophils/100 WBC (Bld) 1.8 % [facility] Erythrocyte distribution width (RBC) [Ratio] 13.1 % 11.5 - 15.0 % [facility] Hematocrit (Bld) [Volume fraction] 36.2 % 36.0 - 46.0 % [facility] Hemoglobin (Bld) [Mass/Vol] 12.6 g/dL 11.5 - 15.5 g/dL [facility] Immature granulocytes (Bld) [#/Vol] 0.06 10*3/uL [facility] Immature granulocytes/100 WBC (Bld) 0.6 % [facility] Interpretation and review of laboratory results Abnormal [facility] Lymphocytes (Bld) [#/Vol] 1.93 10*3/uL [facility] Lymphocytes/100 WBC (Bld) 18.1 % [facility] MCH (RBC) [Entitic mass] 31.9 pg 26.0 - 34.0 pg [facility] MCHC (RBC) [Mass/Vol] 34.8 g/dL 30.5 - 36.0 g/dL [facility] MCV (RBC) [Entitic vol] 91.6 fL 80.0 - 100.0 fL [facility] Monocytes (Bld) [#/Vol] 0.94 10*3/uL High [facility] Monocytes/100 WBC (Bld) 8.8 % [facility] Neutrophils (Bld) [#/Vol] 7.53 10*3/uL High [facility] Neutrophils/100 WBC (Bld) 70.5 % [facility] Nucleated RBC (Bld) [#/Vol] NINF [facility] Nucleated RBC/100 WBC (Bld) [Ratio] 0.0 % /100 WBC [facility] Platelet mean volume (Bld) [Entitic vol] 9.4 fL 9.0 - 12.7 fL [facility] Platelets (Bld) [#/Vol] 235 10*3/uL [facility] RBC (Bld) [#/Vol] 3.95 10*6/uL 3.90 - 5.2 0 m/uL [facility] WBC (Bld) [#/Vol] 10.67 10*3/uL [facility] Basophils (Bld) [#/Vol] 10*3/uL Normal <0.11 [facility] Comment on above: Order Comment: Speci men Type: BLOOD SPECIMENOrdering Facility: [facility] Address: [address] [place] [address] Performed By: #### 5 7021-8 ####[facility] [id number] [place] [address] [place] Basophils/100 WBC (Bld) 0.2 % Normal [facility] Comment on above: Order Comment: Speci men Type: BLOOD SPECIMENOrdering Facility: [facility] Address: [address] [place] [address] Performed By: #### 5 7021-8 ####[facility] [id number] [place] [address] [place] Differential cell count method Nom (Bld) Auto Normal [facility] Comment on above: Order Comment: Speci men Type: BLOOD SPECIMENOrdering Facility: [facility] Address: [address] [place] [address] Performed By: #### 5 7021-8 ####[facility] [id number] [place] [address] [place] Eosinophils (Bld) [#/Vol] 0.19 10*3/uL Normal <0.46 [facility] Comment on above: Order Comment: Speci men Type: BLOOD SPECIMENOrdering Facility: [facility] Address: [address] [place] [address] Performed By: #### 5 7021-8 ####[facility]ENTERNCSHRINERS H[facility]ALS FOR CHILDREN [id number] [place] [address] [place] Eosinophils/100 WBC (Bld) 1.8 % Normal [facility] Comment on above: Order Comment: Speci men Type: BLOOD SPECIMENOrdering Facility: [facility] Address: [address] [place] [address] Performed By: #### 5 7021-8 ####[facility]ENTERNCSHRINERS H[facility]ALS FOR CHILDREN [id number] [place] [address] [place] Erythrocyte distribution width (RBC) [Ratio] 13.1 % Normal 11.5-15.0 [facility] Comment on above: Order Comment: Speci men Type: BLOOD SPECIMENOrdering Facility: [facility] Address: [address] [place] [address] Performed By: #### 5 7021-8 ####[facility] [id number] [place] [address] [place] Hematocrit (Bld) [Volume fraction] 36.2 % Normal 36.0-46.0 [facility] Comment on above: Order Comment: Speci men Type: BLOOD SPECIMENOrdering Facility: [facility] Address: [address] [place] [address] Performed By: #### 5 7021-8 ####[facility]ENTERNCLIA [id number] [place] [address] [place] Hemoglobin (Bld) [Mass/Vol] 12.6 g/dL Normal 11.5-15.5 [facility] Comment on above: Order Comment: Speci men Type: BLOOD SPECIMENOrdering Facility: [facility] Address: [address] [place] [address] Performed By: #### 5 7021-8 ####[facility] MILLTOWNCLIA [id number] [place] [address] [place] Immature granulocytes (Bld) [#/Vol] 0.06 10*3/uL Normal <0.10 [facility] Comment on above: Order Comment: Speci men Type: BLOOD SPECIMENOrdering Facility: [facility] Address: [address] [place] [address] Performed By: #### 5 7021-8 ####[facility]STITUTEWNCLIA [id number] [place] [address] [place] Immature granulocytes/100 WBC (Bld) 0.6 % Normal [facility] Comment on above: Order Comment: Speci men Type: BLOOD SPECIMENOrdering Facility: [facility] Address: [address] [place] [address] Performed By: #### 5 7021-8 ####[facility]ENTERNCLIA [id number] [place] [address] [place] Lymphocytes (Bld) [#/Vol] 1.93 10*3/uL Normal 1.00-4.00 [facility] Comment on above: Order Comment: Speci men Type: BLOOD SPECIMENOrdering Facility: [facility] Address: [address] [place] [address] Performed By: #### 5 7021-8 ####[facility] MILLWNCLIA [id number] [place] [address] [place] Lymphocytes/100 WBC (Bld) 18.1 % Normal [facility] Comment on above: Order Comment: Speci men Type: BLOOD SPECIMENOrdering Facility: [facility] Address: [address] [place] [address] Performed By: #### 5 7021-8 ####[facility] MILLWNCLIA [id number] [place] [address] [place] MCH (RBC) [Entitic mass] 31.9 pg Normal 26.0-34.0 [facility] Comment on above: Order Comment: Speci men Type: BLOOD SPECIMENOrdering Facility: [facility] Address: [address] [place] [address] Performed By: #### 5 7021-8 ####[facility] [id number] [place] [address] [place] MCHC (RBC) [Mass/Vol] 34.8 g/dL Normal 30.5-36.0 [facility] Comment on above: Order Comment: Speci men Type: BLOOD SPECIMENOrdering Facility: [facility] Address: [address] [place] [address] Performed By: #### 5 7021-8 ####[facility]ENTERNCSHRINERS H[facility]ALS FOR CHIL[facility]EN [id number] [place] [address] [place] MCV (RBC) [Entitic vol] 91.6 fL Normal 80.0-100.0 [facility] Comment on above: Order Comment: Speci men Type: BLOOD SPECIMENOrdering Facility: [facility] Address: [address] [place] [address] Performed By: #### 5 7021-8 ####[facility]ENTERNCLIA [id number] [place] [address] [place] Monocytes (Bld) [#/Vol] 0.94 10*3/uL High <0.87 [facility] Comment on above: Order Comment: Speci men Type: BLOOD SPECIMENOrdering Facility: [facility] Address: [address] [place] [address] Performed By: #### 5 7021-8 ####[facility]ENTERNCLIA [id number] [place] [address] [place] Monocytes/100 WBC (Bld) 8.8 % Normal [facility] Comment on above: Order Comment: Speci men Type: BLOOD SPECIMENOrdering Facility: [facility] Address: [address] [place] [address] Performed By: #### 5 7021-8 ####[facility] [id number] [place] [address] [place] Neutrophils (Bld) [#/Vol] 7.53 10*3/uL High 1.45-7.50 [facility] Comment on above: Order Comment: Speci men Type: BLOOD SPECIMENOrdering Facility: [facility] Address: [address] [place] [address] Performed By: #### 5 7021-8 ####[facility] [id number] [place] [address] [place] Neutrophils/100 WBC (Bld) 70.5 % Normal [facility] Comment on above: Order Comment: Speci men Type: BLOOD SPECIMENOrdering Facility: [facility] Address: [address] [place] [address] Performed By: #### 5 7021-8 ####[facility] [id number] [place] [address] [place] Nucleated RBC (Bld) [#/Vol] 10*3/uL Normal <0.01 [facility] Comment on above: Order Comment: Speci men Type: BLOOD SPECIMENOrdering Facility: [facility] Address: [address] [place] [address] Performed By: #### 5 7021-8 ####[facility] [id number] [place] [address] [place] Nucleated RBC/100 WBC (Bld) [Ratio] 0.0 /100 WBC Normal [facility] Comment on above: Order Comment: Speci men Type: BLOOD SPECIMENOrdering Facility: [facility] Address: [address] [place] [address] [place] [address] Performed By: #### 5 7021-8 ####[facility] [id number] [place] [address] [place] Platelet mean volume (Bld) [Entitic vol] 9.4 fL Normal 9.0-12.7 [facility] Comment on above: Order Comment: Speci men Type: BLOOD SPECIMENOrdering Facility: [facility] Address: [address] [place] [address] Performed By: #### 5 7021-8 ####[facility] CENTERMORA [id number] [place] [address] [place] Platelets (Bld) [#/Vol] 235 10*3/uL Normal 150-400 [facility] Comment on above: Order Comment: Speci men Type: BLOOD SPECIMENOrdering Facility: [facility] Address: [address] [place] [address] Performed By: #### 5 7021-8 ####[facility]ENTERNCLIA [id number] [place] [address] [place] RBC (Bld) [#/Vol] 3.95 10*6/uL Normal 3.90-5.20 [facility] Comment on above: Order Comment: Speci men Type: BLOOD SPECIMENOrdering Facility: [facility] Address: [address] [place], [place] [address] Performed By: #### 5 7021-8 ####[facility] CENTERMORLIA [id number] [place] [address] [place] WBC (Bld) [#/Vol] 10.67 10*3/uL Normal 3.70-11.00 [facility] Comment on above: Order Comment: Speci men Type: BLOOD SPECIMENOrdering Facility: [facility] Address: [address] [place] [address] Performed By: #### 5 7021-8 ####[facility] [id number] [address] OF [facility] Ismael 11-30-2024 CNPN Telephone (OBGYWM) NORRISLYNETTE COVINGTON ([id number]) 1995 F Date Time Provider Department 11/30/24 [...] Status:Closed by ANIA CLARKE on 11/30/24 Normal [facility] Comprehensive metabolic 2000 panelOrdered By: Alisa Fitzpatrick on 11-30-2024 Albumin [Mass/Vol] 4.0 g/dL 3.9 - 4.9 g/dL [facility] ALP [Catalytic activity/Vol] 74 U/L 34 - 123 U/L [facility] ALT [Catalytic activity/Vol] 13 U/L 7 - 38 U/L [facility] Anion gap [Moles/Vol] 12 mmol/L 8 - 15 mmol/L [facility] AST [Catalytic activity/Vol] 15 U/L 13 - 35 U/L [facility] Bilirubin [Mass/Vol] 0.3 mg/dL 0.2 - 1 .3 mg/dL [facility] Calcium [Mass/Vol] 9.0 mg/dL 8.5 - 10. 2 mg/dL [facility] Chloride [Moles/Vol] 103 mmol/L 98 - 10 7 mmol/L [facility] CO2 [Moles/Vol] 21 mmol/L Low 22 - 30 mmol/L [facility] Creatinine [Mass/Vol] 0.66 mg/dL 0.58 - 0.96 mg/dL [facility] GFR/1.73 sq M.predicted among non-blacks MDRD (S/P/Bld) [Vol rate/Area] 123 mL/min/{1.73_m2} - PINF [facility] Comment on above: Estimated Glomerular Filtration Rate [...] [Mass/Vol] 80 mg/dL 74 - 99 mg/dL [facility] Comment on above: The [place] Diab[employer] Association (ADA) provides guidance for [...] Standards of Medical Care in Diabetes 2016, [place] [employer]. Diabetes Care. 2016.39(Suppl 1). Interpretation and review of laboratory results Abnormal [facility] Potassium [Moles/Vol] 3.4 mmol/L Low 3.7 - 5.1 mmol/L [facility] Protein [Mass/Vol] 6.9 g/dL 6.3 - 8.0 g/dL [facility] Sodium [Moles/Vol] 136 mmol/L 136 - 144 mmol/L [facility] Urea nitrogen [Mass/Vol] 10 mg/dL 7 - 21 mg/dL [facility] Comprehensive metabolic 2000 panelon 11-30-2024 Albumin [Mass/Vol] 4.0 g/dL Normal 3.9-4.9 [facility] Comment on above: Order Comment: Speci men Type: BLOOD SPECIMENOrdering Facility: [facility] Address: [address] [place] [address] Performed By: #### 2 4323-8 ####[facility] CHIP [facility] HOSPITALPREM [id number] [place] [address] [place] ALP [Catalytic activity/Vol] 74 U/L Normal 34-123 [facility] Comment on above: Order Comment: Speci men Type: BLOOD SPECIMENOrdering Facility: [facility] Address: [address] [place] [address] Performed By: #### 2 4323-8 ####[facility] CHIP MILLTOWNCLIA [id number] [place] [address] [place] ALT [Catalytic activity/Vol] 13 U/L Normal 7-38 [facility] Comment on above: Order Comment: Speci men Type: BLOOD SPECIMENOrdering Facility: [facility] Address: [address] [place] [address] Performed By: #### 2 4323-8 ####[facility] INSTITUTEWNCLIA [id number] [place] [address] [place] Anion gap [Moles/Vol] 12 mmol/L Normal 8-15 [facility] Comment on above: Order Comment: Speci men Type: BLOOD SPECIMENOrdering Facility: [facility] Address: [address] [place] [address] Performed By: #### 2 4323-8 ####[facility] CHIPPORTER MEDICAL CENTERWNCLIA [id number] [place] [address] [place] AST [Catalytic activity/Vol] 15 U/L Normal 13-35 [facility] Comment on above: Order Comment: Speci men Type: BLOOD SPECIMENOrdering Facility: [facility] Address: [address] [place] [address] Performed By: #### 2 4323-8 ####[facility] CHIP MILLTIPPONCLIA [id number] [place] [address] [place] Bilirubin [Mass/Vol] 0.3 mg/dL Normal 0.2-1.3 [facility] Comment on above: Order Comment: Speci men Type: BLOOD SPECIMENOrdering Facility: [facility] Address: [address] [place] [address] Performed By: #### 2 4323-8 ####[facility] CHIP MILLTOWNCLIA [id number] [place] [address] [place] Calcium [Mass/Vol] 9.0 mg/dL Normal 8.5-10.2 [facility] Comment on above: Order Comment: Speci men Type: BLOOD SPECIMENOrdering Facility: [facility] Address: [address] [place] [address] Performed By: #### 2 4323-8 ####[facility] MILLTOWNCLIA [id number] [place] [address] [place] Chloride [Moles/Vol] 103 mmol/L Normal 98-107 [facility] Comment on above: Order Comment: Speci men Type: BLOOD SPECIMENOrdering Facility: [facility] Address: [address] [place] [address] Performed By: #### 2 4323-8 ####[facility] MILLTOWNCLIA [id number] [place] [address] [place] CO2 [Moles/Vol] 21 mmol/L Low 22-30 [facility] Comment on above: Order Comment: Speci men Type: BLOOD SPECIMENOrdering Facility: [facility] Address: [address] [place] [address] Performed By: #### 2 4323-8 ####[facility] MILLTOWNCLIA [id number] [place] [address] [place] Creatinine [Mass/Vol] 0.66 mg/dL Normal 0.58-0.96 [facility] Comment on above: Order Comment: Speci men Type: BLOOD SPECIMENOrdering Facility: [facility] Address: [address] [place] [address] Performed By: #### 2 4323-8 ####[facility] MILLTOWNCLIA [id number] [place] [address] [place] eGFRcr SerPlBld CKD-EPI 2020 123 mL/min/1.73m??? Normal >=60 [facility] Comment on above: Order Comment: Hazel juarez Type: BLOOD SPECIMENOrdering Facility: [facility] Address: [address] [place] [address] Result Comment: Yamilet mated Glomerular Filtration Rate [...] actual GFR. Performed By: #### 2 4323-8 ####[facility] [id number] [place] [address] [place] Glucose [Mass/Vol] 80 mg/dL Normal 74-99 [facility] Comment on above: Order Comment: Hazel juarez Type: BLOOD SPECIMENOrdering Facility: [facility] Address: [address] [place] [address] Result Comment: The [place] [employer] (ADA) provides guidance for cutoff [...] Standards of Medical Care in Diabetes 2016, [place] [employer]. Diabetes Care. 2016.39(Suppl 1). Performed By: #### 2 4323-8 ####[facility] [id number] [place] [address] [place] Potassium [Moles/Vol] 3.4 mmol/L Low 3.7-5.1 [facility] Comment on above: Order Comment: Speci men Type: BLOOD SPECIMENOrdering Facility: [facility] Address: [address] [place] [address] Performed By: #### 2 4323-8 ####[facility]ENTERNCSHRINERS HOS[facility]ALS FOR CHILDREN [id number] [place] [address] [place] Protein [Mass/Vol] 6.9 g/dL Normal 6.3-8.0 [facility] Comment on above: Order Comment: Speci men Type: BLOOD SPECIMENOrdering Facility: [facility] Address: [address] [place] [address] Performed By: #### 2 4323-8 ####[facility]ENTERNCSHRINERS HOS[facility]ITALS FOR CHILDREN [id number] [place] [address] [place] Sodium [Moles/Vol] 136 mmol/L Normal 136-144 [facility] Comment on above: Order Comment: Speci men Type: BLOOD SPECIMENOrdering Facility: [facility] Address: [address] [place] [address] Performed By: #### 2 4323-8 ####[facility] [id number] [place] [address] [place] Urea nitrogen [Mass/Vol] 10 mg/dL Normal 7-21 [facility] Comment on above: Order Comment: Speci men Type: BLOOD SPECIMENOrdering Facility: [facility] Address: [address] [place] [address] Performed By: #### 2 4323-8 ####[facility]ENTERNCLIA [id number] [place] [address] [place] LIPASEon 11-30-2024 Lipase [Catalytic activity/Vol] 14 U/L Low 16 - 61 U/L [facility] Lipase SerPl-cCncon 12-01-19 Lipase [Catalytic activity/Vol] 14 U/L Low 16-61 [facility] Comment on above: Order Comment: Speci men Type: BLOOD SPECIMENOrdering Facility: [facility] Address: [address] [place] [address] Performed By: #### 1 798-8, 3040-3 ####[facility] LABCLIA [id number] [place] [address] [place] Lipase [Catalytic activity/V ol]on 11-30-2024 Interpretation and review of laboratory results Abnormal [facility] No Panel Informationon 11-30 [facility] UA DIP, URINE (POC)on 2024 BILIRUBIN UA (POCT) Negative Negative [facility] CLARITY UA (POCT) [facility] COLOR UA (POCT) Yellow [facility] GLUCOSE UA (POCT) Negative Negative mg/dL [facility] Hemoglobin Ql (U) Negative Negative [facility] Interpretation and review of laboratory results Abnormal [facility] KETONE UA (POCT) Negative Negative mg/dL [facility] LEUKOCYTES UA (POCT) Trace Abnormal Negative [facility] NITRITE UA (POCT) Negative Negative [facility] PH UA (POCT) 7.0 4.5 - 8.0 [facility] Protein Ql (U) Negative Negative mg/dL [facility] SPECIFIC GRAVITY UA (POCT) 1.020 1.005 - 1.030 [facility] UROBILINOGEN UA (POCT) 0.2 Normal E.U./dL [facility] Location:[facility], [address], [place], [place], [id number] [place] [address] POINT OF CARE [facility] Ismael 11-25-2024 CNPN Telephone (OBGYWM) LYNETTE NORRIS ([id number]) 1995 F Date Time Provider Department 11/25/24 KRISTIN POLLOCK During your visit today, we recorded the following information about you: Nan Bass RN 11/25/2024 8:18 AM Signed Received breast pump RX from [employer]. To BERYL to sign. ALENA Sprague Trisha, [...] Status:Closed by ANIA CLARKE on 11/30/24 Normal [facility] Examination level ultrasound on 11-23-2024 Indication Standard [...] 13 oz EFW by: Hadlock (HC-AC-FL) [employer] Person 6.3 mm CM 3.6 mm 12% Nicolaides [...] normal LVOT view: normal 3-vessel view: normal 4-trtqob-ycfmauy view: normal Heart / Thorax Situs: situs [...] Rachael Persaud RDMS, RVT Read By: Daily Munger, M.D. MATERNAL MEDICINE [facility] Radiology Study observation (narrative) [facility] Bacteria Ur Culton Bacteria identified Cx Nom (U) ORGANISM ID: 1 10,000 -<50,000 CFU/ml Normal urogenital butch Normal [facility] Comment on above: Performed By: #### 6 30-4 ####[facility] LABCLIA [id number] [address] CNPBenita 10-06-2024 CNPN Telephone (OBGYWM) LYNETTE NORRIS ([id number]) 1995 F Date Time Provider Department 10/06/24 [...] Status:Closed by NAN BASS on 10/06/24 Normal [facility] Examination level ultrasound on 10-02-2024 Indication First trimester anatomic survey Impression REMOTE READ The patient is referred for a first trimester anatomy scan including nuchal translucency measurement as clinically indicated. - Single, live, intrauterine . - [place] rump length measurement is consistent with the [...] view: normal 4-chamber view with color: normal 3-athfil-bcedbuy view: normal Abdominal cord insertion: normal Stomach: [...] Read By: Medina Dewitt M.D. MATERNAL MEDICINE [facility] CBC W Auto Diff Bldon 2024 Erythrocyte distribution width (RBC) [Ratio] 12.6 % Normal 11.5-15.0 [facility] Comment on above: Order Comment: Speci men Type: BLOOD SPECIMENOrdering Facility: [facility] Address: [address] [place], [place] [address] Performed By: #### 5 7021-8 ####[facility]ENTERNCLIA [id number] [place] [address] [place] [facility] Performed By: #### L [id number] ####[facility] LABCLIA [id number] [place] [address] [place] CBC W Auto Differential pane l (Bld)on 10-01-2024 Basophils (Bld) [#/Vol] 0.03 10*3/uL Normal <0.11 [facility] Comment on above: Order Comment: Speci men Type: BLOOD SPECIMENOrdering Facility: [facility] Address: [address] [place] [address] Performed By: #### 5 7021-8 ####[facility]ENTERNCLIA [id number] [place] [address] [place] Basophils/100 WBC (Bld) 0.3 % Normal [facility] Comment on above: Order Comment: Speci men Type: BLOOD SPECIMENOrdering Facility: [facility] Address: [address] [place] [address] Performed By: #### 5 7021-8 ####[facility]ENTERNCLIA [id number] [place] [address] [place] Differential cell count method Nom (Bld) Auto Normal [facility] Comment on above: Order Comment: Speci men Type: BLOOD SPECIMENOrdering Facility: [facility] Address: [address] [place] [address] Performed By: #### 5 7021-8 ####[facility] [id number] [place] [address] [place] Eosinophils (Bld) [#/Vol] 0.08 10*3/uL Normal <0.46 [facility] Comment on above: Order Comment: Speci men Type: BLOOD SPECIMENOrdering Facility: [facility] Address: [address] [place] [address] Performed By: #### 5 7021-8 ####[facility] CENTERNEYDAA [id number] [place] [address] [place] Eosinophils/100 WBC (Bld) 0.8 % Normal [facility] Comment on above: Order Comment: Speci men Type: BLOOD SPECIMENOrdering Facility: [facility] Address: [address] [place] [address] Performed By: #### 5 7021-8 ####[facility] [id number] [place] [address] [place] Hematocrit (Bld) [Volume fraction] 37.1 % Normal 36.0-46.0 [facility] Comment on above: Order Comment: Speci men Type: BLOOD SPECIMENOrdering Facility: [facility] Address: [address] [place] [address] Performed By: #### 5 7021-8 ####[facility] [id number] [place] [address] [place] Hemoglobin (Bld) [Mass/Vol] 12.7 g/dL Normal 11.5-15.5 [facility] Comment on above: Order Comment: Speci men Type: BLOOD SPECIMENOrdering Facility: [facility] Address: [address] [place] [address] Performed By: #### 5 7021-8 ####[facility] HOSPITALLIA [id number] [place] [address] [place] Immature granulocytes (Bld) [#/Vol] 0.03 10*3/uL Normal <0.10 [facility] Comment on above: Order Comment: Speci men Type: BLOOD SPECIMENOrdering Facility: [facility] Address: [address] [place] [address] Performed By: #### 5 7021-8 ####[facility] CLAUDIOLIA [id number] [place] [address] [place] Immature granulocytes/100 WBC (Bld) 0.3 % Normal [facility] Comment on above: Order Comment: Speci men Type: BLOOD SPECIMENOrdering Facility: [facility] Address: [address] [place] [address] Performed By: #### 5 7021-8 ####[facility] CENTERMORYadira [id number] [place] [address] [place] Lymphocytes (Bld) [#/Vol] 1.95 10*3/uL Normal 1.00-4.00 [facility] Comment on above: Order Comment: Speci men Type: BLOOD SPECIMENOrdering Facility: [facility] Address: [address] [place] [address] Performed By: #### 5 7021-8 ####[facility] CENTERMORSHRINERS HOSPITALS FOR CHILDREN [id number] [place] [address] [place] Lymphocytes/100 WBC (Bld) 18.3 % Normal [facility] Comment on above: Order Comment: Speci men Type: BLOOD SPECIMENOrdering Facility: [facility] Address: [address] [place] [address] Performed By: #### 5 7021-8 ####[facility] CENTERMORRADHA [id number] [place] [address] [place] MCH (RBC) [Entitic mass] 30.4 pg Normal 26.0-34.0 [facility] Comment on above: Order Comment: Speci men Type: BLOOD SPECIMENOrdering Facility: [facility] Address: [address] [place] [address] Performed By: #### 5 7021-8 ####[facility]CT[facility] HOSPITALLIA [id number] [place] [address] [place] MCHC (RBC) [Mass/Vol] 34.2 g/dL Normal 30.5-36.0 [facility] Comment on above: Order Comment: Speci men Type: BLOOD SPECIMENOrdering Facility: [facility] Address: [address] [place] [address] Performed By: #### 5 7021-8 ####[facility] INSTITUTEWNCLIA [id number] [place] [address] [place] MCV (RBC) [Entitic vol] 88.8 fL Normal 80.0-100.0 [facility] Comment on above: Order Comment: Speci men Type: BLOOD SPECIMENOrdering Facility: [facility] Address: [address] [place] [address] Performed By: #### 5 7021-8 ####[facility] CENTERNCSHRINERS HOSPITALS FOR CHILDREN [id number] [place] [address] [place] Monocytes (Bld) [#/Vol] 0.94 10*3/uL High <0.87 [facility] Comment on above: Order Comment: Speci men Type: BLOOD SPECIMENOrdering Facility: [facility] Address: [address] [place] [address] Performed By: #### 5 7021-8 ####[facility] CENTERNCLI [id number] [place] [address] [place] Monocytes/100 WBC (Bld) 8.8 % Normal [facility] Comment on above: Order Comment: Speci men Type: BLOOD SPECIMENOrdering Facility: [facility] Address: [address] [place], [place] [address] Performed By: #### 5 7021-8 ####[facility]ENTERNCSHRINERS HOSPITALS FOR CHILDREN [id number] [place] [address] [place] Neutrophils (Bld) [#/Vol] 7.62 10*3/uL High 1.45-7.50 [facility] Comment on above: Order Comment: Speci men Type: BLOOD SPECIMENOrdering Facility: [facility] Address: [address] [place] [address] Performed By: #### 5 7021-8 ####[facility] VLADISLAVWMORLIA [id number] [address] [place] Neutrophils/100 WBC (Bld) 71.5 % Normal [facility] Comment on above: Order Comment: Speci men Type: BLOOD SPECIMENOrdering Facility: [facility] Address: [address] [place] [address] Performed By: #### 5 7021-8 ####[facility] CENTERMORLIA [id number] [place] [address] [place] Nucleated RBC (Bld) [#/Vol] 10*3/uL Normal <0.01 [facility] Comment on above: Order Comment: Speci men Type: BLOOD SPECIMENOrdering Facility: [facility] Address: [address] [place] [address] Performed By: #### 5 7021-8 ####[facility] CENTERMORLIA [id number] [place] [address] [place] Nucleated RBC/100 WBC (Bld) [Ratio] 0.0 /100 WBC Normal [facility] Comment on above: Order Comment: Speci men Type: BLOOD SPECIMENOrdering Facility: [facility] Address: [address] [place] [address] Performed By: #### 5 7021-8 ####[facility] INSTITUTEWNCLIA [id number] [place] [address] [place] Platelet mean volume (Bld) [Entitic vol] 9.5 fL Normal 9.0-12.7 [facility] Comment on above: Order Comment: Speci men Type: BLOOD SPECIMENOrdering Facility: [facility] Address: [address] [place] [address] Performed By: #### 5 7021-8 ####[facility] CENTERMORSHRINERS HOSPITALS FOR CHILDREN [id number] [place] [address] [place] Platelets (Bld) [#/Vol] 247 10*3/uL Normal 150-400 [facility] Comment on above: Order Comment: Speci men Type: BLOOD SPECIMENOrdering Facility: [facility] Address: [address] [place] [address] Performed By: #### 5 7021-8 ####[facility] [id number] [place] [address] [place] RBC (Bld) [#/Vol] 4.18 10*6/uL Normal 3.90-5.20 [facility] Comment on above: Order Comment: Speci men Type: BLOOD SPECIMENOrdering Facility: [facility] Address: [address] [place] [address] Performed By: #### 5 7021-8 ####[facility] [id number] [place] [address] [place] WBC (Bld) [#/Vol] 10.65 10*3/uL Normal 3.70-11.00 [facility] Comment on above: Order Comment: Speci men Type: BLOOD SPECIMENOrdering Facility: [facility] Address: [address] [place] [address] Performed By: #### 5 7021-8 ####[facility] ERA [id number] [place] [address] [place] Examination level ultrasound on 10-01-2024 Radiology Study observation (narrative) [facility] HBV surface Ag Ser Qlon 09-13 HBV surface Ag Ql (S) Negative Normal Negative [facility] Comment on above: Order Comment: Speci men Type: BLOOD SPECIMENOrdering Facility: [facility] Address: [address] [place] [address] Performed By: #### 5 195-3, 56888-5, 01071-4 ####[facility] LABCLIA [id number] [place] [address] [place] HCV Ab Ser Qlon 10-01-2024 HCV Ab Ql (S) Negative Normal Negative [facility] Comment on above: Order Comment: Hazel juarez Type: BLOOD SPECIMENOrdering Facility: [facility] Address: [address] [place] [address] Result Comment: The result suggests no evidence of infection with Hepatitis C virus. Should recent infection be suspected, repeat testing may be considered 4-6 weeks after this draw. Performed By: #### 1 6128-1 ####[facility] LABCLIA [id number] [place] [address] [place] HGB ELECTROPHORESIS FOR EVAL (LAB ORDER)on 10-01-2024 Hemoglobin A (Bld) [Mass fraction] 97.3 % Normal 96.2-98.0 [facility] Comment on above: Order Comment: Hazel juarez Type: BLOOD SPECIMENOrdering Facility: [facility] Address: [address] [place] [address] Performed By: #### H JETHRO, [id number] ####[facility] LABCLIA [id number] [place] [address] [place] Hemoglobin A2 (Bld) [Mass fraction] 2.7 % Normal 2.0-3.1 [facility] Comment on above: Order Comment: Hazel juarez Type: BLOOD SPECIMENOrdering Facility: [facility] Address: [address] [place] [address] Performed By: #### H GBBEBETO, [id number] ####[facility] LABCLIA [id number] [place] [address] [place] Hemoglobin Unsp Elph (Bld) [Mass fraction] No abnormal hemoglobin identified. Normal No abnormal hemoglobin identified. [facility] Comment on above: Order Comment: Hazel [facility] Type: BLOOD SPECIMENOrdering Facility: [facility] Address: [address] [place] [address] Performed By: #### H JETHRO, [id number] ####[facility] LABCLIA [id number] [place] [address] [place] HGB EVALUATION CASCADE INTER Laith 10-01-2024 Hemoglobin pattern (Bld) [Interp] Reviewed by Los Obando MD Normal [facility] Comment on above: Order Comment: Speci men Type: BLOOD SPECIMENOrdering Facility: [facility] Address: [address] [place] [address] Performed By: #### H JETHRO, [id number] ####[facility] LABCLIA [id number] [place] [address] [place] INTERPRETATION (HGB EVAL) Normal [facility] Comment on above: Order Comment: Speci men Type: BLOOD SPECIMENOrdering Facility: [facility] Address: [address] [place] [address] Result Comment: Hemo globins were analyzed by capillary electrophoresis and CBC red cell parameters were reviewed. No abnormal hemoglobin is identified. There is a normal hemoglobin capillary electrophoresis pattern. Performed By: #### Asmita MORELOS, [id number] ####[facility] LABIA [id number] [place] [address] [place] HIV 1+2 Ab IA Qlon 5 HIV 1 and 2 Ab IA.rapid Nom (S/P/Bld) Normal [facility] Comment on above: Order Comment: Speci men Type: BLOOD SPECIMENOrdering Facility: [facility] Address: [address] [place] [address] Result Comment: Test not indicated. Performed By: #### 5 195-3, 38952-8, 98898-6 ####[facility] LABIA [id number] [address] [place] HIV 1+2 Ab+HIV1 p24 Ag IA Ql Non-Reactive Normal Nonreactive [facility] Comment on above: Order Comment: Speci men Type: BLOOD SPECIMENOrdering Facility: [facility] Address: [address] [place] [address] Performed By: #### 5 195-3, 74736-6, 22937-9 ####[facility] LABIA [id number] [place] [address] [place] HIV immunoassay testing algorithm interpretation (S/P/Bld) [Interp] Normal [facility] Comment on above: Order Comment: Speci men Type: BLOOD SPECIMENOrdering Facility: [facility] Address: [address] [place] [address] Result Comment: No e vidence of HIV-1 or HIV-2 infection. Should recent infection be suspected, repeat testing may be considered 2-3 weeks after this draw. Cole Rev. Code 3701.243(E): This information has been [...] or diagnoses. Performed By: #### 5 195-3, 01105-5, 25045-9 ####[facility] LABIA [id number] [place] [address] [place] HbA1c (Bld)on 10-01-2024 Average glucose Estimated from glycated hemoglobin (Bld) [Mass/Vol] 88 mg/dL Normal [facility] Comment on above: Order Comment: Speci men Type: BLOOD SPECIMENOrdering Facility: [facility] Address: [address] [place] [address] Result Comment: eAG: (Estimated average glucose) is a calculated value from HgbA1c and is inbound customer service representative of the average blood glucose level in the last 2-3 month period. Performed By: #### 5 5454-3 ####[facility] LABCLIA [id number] [place] [address] [place] HbA1c (Bld) [Mass fraction] 4.7 % Normal 4.3-5.6 [facility] Comment on above: Order Comment: Speci men Type: BLOOD SPECIMENOrdering Facility: [facility] Address: [address] [place] [place] [address] Result Comment: Amdionisio ican Diabetes Association guidelines indicate that patients with HgbA1c in the range 5.7-6.4% are at increased risk for development of diabetes, and intervention by lifestyle modification may be beneficial. HgbA1c greater or equal to 6.5% is considered diagnostic of diabetes. Performed By: #### 5 5454-3 ####[facility] LABCLIA [id number] [address] [place] [id number] PLUSon 10-01-2024 Cell-free DNA./Cell-free DNA.total Dosage of chromosome-specific cfDNA (cfDNA) [Molar fraction] 17% Normal [facility] Comment on above: Order Comment: Speci men Type: BLOOD SPECIMENOrdering Facility: [facility] Address: [address] [place] [address] Performed By: #### M AT21 ####[facility] LABCLIA [id number] [place] [address] Chr 13+18+21+X+Y aneuploidy Dosage of chromosome-specific cfDNA Ql (cfDNA) Negative Normal [facility] Comment on above: Order Comment: Speci men Type: BLOOD SPECIMENOrdering Facility: [facility] Address: [address] [place] [address] Performed By: #### M AT21 ####[facility] LABCLIA [id number] [place] [address] Chr 21 trisomy Dosage of chromosome-specific cfDNA Ql (cfDNA) Negative Normal [facility] Comment on above: Order Comment: Speci men Type: BLOOD SPECIMENOrdering Facility: [facility] Address: [address] [place] [address] Performed By: #### M AT21 ####[facility] LABCLIA [id number] [place] [address] Chr X and Y aneuploidy risk Sequencing Ql (cfDNA) [Interp] Not detected Normal [facility] Comment on above: Order Comment: Speci men Type: BLOOD SPECIMENOrdering Facility: [facility] Address: [address] [place] [address] Result Comment: Not Detected Not Detected Performed By: #### M AT21 ####[facility] LABCLIA [id number] [place] [address] Citation George (Reference lab test) Comment Normal [facility] Comment on above: Order Comment: Speci men Type: BLOOD SPECIMENOrdering Facility: [facility] Address: [address] [place] [address] Result Comment: 1. P justus DUMONT, et al. Celsa Med. 2012;14(3):296-305. 2. Jenifer JONES et al. Prenat Diag. 2013;33(6):591-597. 3. Julio C, et al. Clin Chem. 2015 Apr;61(4):608-616. 4. Neetu DUMONT, et al. Celsa Med. 2011;13(11):913-920. 5. ACOG/SMFM Practice Bulletin No. 226, Jan 2020. Performed By: #### M AT21 ####[facility] LABCLIA [id number] [place] [address] Gestational age Estimated from conception date Tabares Normal [facility] Comment on above: Order Comment: Speci men Type: BLOOD SPECIMENOrdering Facility: [facility] Address: [address] [place] [address] Performed By: #### M AT21 ####[facility] LABCLIA [id number] [place] [address] GESTATIONALAGE AGE > OR = 9W Yes Normal [facility] Comment on above: Order Comment: Speci men Type: BLOOD SPECIMENOrdering Facility: [facility] Address: [address] [place] [address] Performed By: #### M AT21 ####[facility] LABCLIA [id number] [place] [address] Laboratory comment George (Report) Comment Normal [facility] Comment on above: Order Comment: Hazel juarez Type: BLOOD SPECIMENOrdering Facility: [facility] Address: [address] [place] [address] Result Comment: The MaterniT(R) 21 PLUS laboratory-developed test (LDT) analyzes circulating cell-free DNA from a maternal blood sample. This test is used for screening purposes and not diagnostic. Clinical correlation is recommended. Validation data on twin pregnancies is limited and the ability of this test to detect aneuploidy in higher multiple gestations has not yet been validated. Performed By: #### M AT21 ####Global AnimationzCLIA [id number] [place] [address] latin american studies director name Nom (Provider) Comment Normal [facility] Comment on above: Order Comment: Hazel juarez Type: BLOOD SPECIMENOrdering Facility: [facility] Address: [address] [place] [address] Result Comment: This specimen showed an expected representation of chromosome 21, 18 and 13 material. Clinical correlation is suggested. Comment Dawson Ruiz MD, PhD, Director, [employer] Performed By: #### M AT21 ####[facility] LABCLIA [id number] [place] [address] LIMITATIONS OF THE TEST Comment Normal [facility] Comment on above: Order Comment: Hazel juarez Type: BLOOD SPECIMENOrdering Facility: [facility] Address: [address] [place] [address] Result Comment: Rigo fry the results of [...] and Fragmin(R)). Performed By: #### M AT21 ####[facility] LABEyesquadIA [id number] [place] [address] Monosomy X risk Dosage of chromosome-specific cfDNA Ql (Plasma cell-free+WBC DNA) [Interp] Not detected Normal [facility] Comment on above: Order Comment: Speci men Type: BLOOD SPECIMENOrdering Facility: [facility] Address: [address] [place] [address] Performed By: #### M AT21 ####[facility] LABCLIA [id number] [place] [address] NEGATIVE PREDICTIVE VALUE Note Normal [facility] Comment on above: Order Comment: Speci men Type: BLOOD SPECIMENOrdering Facility: [facility] Address: [address] [place] [address] Result Comment: The Negative Predictive Value (NPV) for trisomy 21, 18, and 13 is greater than 99%. The NPV for SCA and ESS cannot be calculated as SCA and ESS are only reported when an abnormality is detected. Performed By: #### M AT21 ####[facility] LABCLIA [id number] [place] [address] PERFORMANCE CHARACTERISTICS Note Normal [facility] Comment on above: Order Comment: Speci larry Type: BLOOD SPECIMENOrdering Facility: [facility] Address: [address] [place] [address] Result Comment: ! Sex ! Accuracy: 99.4% [...] ! ! ! * As reported in [facility] database nstd37 [https://www.ncbi.nlm.nih.gov/dbvar/studies/nstd37/ ] # Estimated Sensitivity. Sensitivity estimated across the observed size distribution of each syndrome [per [facility] database nstd37] and across the range of fractions observed in routine clinical NIPT. Actual sensitivity can also be influenced by other factors such as the size of the event, total sequence counts, amplification bias, or sequence bias. ## Tabares gestation only. Performed By: #### M AT21 ####NutraboltIA [id number] [place] [address] POSITIVE PREDICTIVE VALUE N/A Normal [facility] Comment on above: Order Comment: Hazel juarez Type: BLOOD SPECIMENOrdering Facility: [facility] Address: [address] [place] [address] Performed By: #### M AT21 ####[facility] LABCLIA [id number] [place] [address] Reference Lab Test Method Comment Normal [facility] Comment on above: Order Comment: Hazel juarez Type: BLOOD SPECIMENOrdering Facility: [facility] Address: [address] [place] [address] Result Comment: See Notes Circulating cell-free DNA [...] and 22. Performed By: #### M AT21 ####[facility] LABCLIA [id number] [place] [address] Service comment (Unsp spec) [Interp] Comment Normal [facility] Comment on above: Order Comment: Speci men Type: BLOOD SPECIMENOrdering Facility: [facility] Address: [address] [place] [address] Result Comment: See Notes [employer] is a subsidiary of [employer], using the brand [employer]. This test was developed and its performance characteristics determined by [employer]. It has not been cleared or approved by the Food and Drug Administration. This laboratory is certified under the Clinical Laboratory Improvement Amendments (CLIA) as qualified to perform high complexity clinical laboratory testing and accredited by the [employer] (CAP). If there is future clinical need for adding MaterniT GENOME testing, this specimen will be available until term. [facility] samples will not be retained beyond 60 days. [facility] patients will have to send a new sample for re-sequencing ([facility] Test Code: 656968). Performed By: #### M AT21 ####[facility] LABCLIA [id number] [place] [address] Sex Dosage of chromosome-specific cfDNA Nom (cfDNA) Comment Normal [facility] Comment on above: Order Comment: Speci men Type: BLOOD SPECIMENOrdering Facility: [facility] Address: [address] [place] [address] Result Comment: Cons istent with Male Performed By: #### M AT21 ####[facility] LABCLIA [id number] [place] [address] Test performance information George (Unsp spec) Comment Normal [facility] Comment on above: Order Comment: Speci men Type: BLOOD SPECIMENOrdering Facility: [facility] Address: [address] [place] [address] Result Comment: The performance characteristics of the MaterniT(R) 21 PLUS laboratory-developed test (LDT) have been determined in a clinical validation study with women at increased risk for chromosomal aneuploidy.[1-4] Performed By: #### M AT21 ####[facility] LABCLIA [id number] [place] [address] Trisomy 13 risk Dosage of chromosome-specific cfDNA Ql (cfDNA) [Interp] Negative Normal [facility] Comment on above: Order Comment: Speci men Type: BLOOD SPECIMENOrdering Facility: [facility] Address: [address] [place] [address] Performed By: #### M AT21 ####[facility] LABCLIA [id number] [place] [address] Trisomy 18 risk Dosage of chromosome-specific cfDNA Ql (Plasma cell-free+WBC DNA) [Interp] Negative Normal [facility] Comment on above: Order Comment: Speci men Type: BLOOD SPECIMENOrdering Facility: [facility] Address: [address] [place] [address] Performed By: #### M AT21 ####[facility] LABCLIA [id number] [place] [address] RBC PARAMETERS FOR HB IDon 0 - Hematocrit (Bld) [Volume fraction] 37.3 % Normal 36.0-46.0 [facility] Comment on above: Order Comment: Speci men Type: BLOOD SPECIMENOrdering Facility: [facility] Address: [address] [place] [address] Performed By: #### L [id number] ####[facility] LABCLIA [id number] [place] [address] [place] Hemoglobin (Bld) [Mass/Vol] 12.5 g/dL Normal 11.5-15.5 [facility] Comment on above: Order Comment: Speci men Type: BLOOD SPECIMENOrdering Facility: [facility] Address: [address] [place] [address] Performed By: #### L [id number] ####[facility] [id number] [place] [address] [place] MCH (RBC) [Entitic mass] 30.0 pg Normal 26.0-34.0 [facility] Comment on above: Order Comment: Speci men Type: BLOOD SPECIMENOrdering Facility: [facility] Address: [address] [place] [address] Performed By: #### L [id number] ####[facility] [id number] [place] [address] [place] MCHC (RBC) [Mass/Vol] 33.5 g/dL Normal 30.5-36.0 [facility] Comment on above: Order Comment: Speci men Type: BLOOD SPECIMENOrdering Facility: [facility] Address: [address] [place] [address] Performed By: #### L [id number] ####[facility] [id number] [place] [address] [place] MCV (RBC) [Entitic vol] 89.7 fL Normal 80.0-100.0 [facility] Comment on above: Order Comment: Speci men Type: BLOOD SPECIMENOrdering Facility: [facility] Address: [address] [place] [address] Performed By: #### L [id number] ####[facility] [id number] [place] [address] [place] RBC (Bld) [#/Vol] 4.16 10*6/uL Normal 3.90-5.20 [facility] Comment on above: Order Comment: Speci men Type: BLOOD SPECIMENOrdering Facility: [facility] Address: [address] [place] [address] Performed By: #### L [id number] ####[facility] LABCLIA [id number] [place] [address] [place] RUBELLA IGG ANTIBODYon 10-01 RUBELLA IGG AB, QUAL Positive Normal Positive [facility] Comment on above: Order Comment: Speci men Type: BLOOD SPECIMENOrdering Facility: [facility] Address: [address] [place] [address] Result Comment: The result suggests recent or past exposure to Rubella virus or history of Rubella vaccination. Positive result may also be seen due to presence of passively-transferred antibodies. Please correlate with patient's history. Performed By: #### R UBIGG ####[facility] LABIA [id number] [place] [address] [place] Reagin and Treponema pallidu m IgG and IgM [Interp]on 10-01-2024 T. pallidum IgG+IgM IA Ql (S) Non-Reactive Normal Nonreactive [facility] Comment on above: Order Comment: Speci men Type: BLOOD SPECIMENOrdering Facility: [facility] Address: [address] [place] [address] Performed By: #### 5 195-3, 77188-4, 72457-7 ####[facility] LABIA [id number] [place] [address] [place] Reagin+T pallidum IgG+IgM Se rPl-Impon 10-01-2024 Reagin and Treponema pallidum IgG and IgM [Interp] Cannot exclude recent Treponemal infection if specimen collected within 7-10 days after appearance of suspect lesions or 2-3 weeks after an exposure. Clinical correlation is required. Normal [facility] Comment on above: Order Comment: Speci men Type: BLOOD SPECIMENOrdering Facility: [facility] Address: [address] [place] [address] Performed By: #### 5 195-3, 29467-2, 81412-3 ####[facility] LABIA [id number] [place] [id number] [place] TYPE + SCREEN PRENATALon ABO A Normal [facility] Comment on above: Order Comment: Speci men Type: BLOOD SPECIMENOrdering Facility: [facility] Address: [address] [place] [address] Performed By: #### T SPN ####[facility] BLOOD BANKCLIA [id number] [place] [address] [place] Rh Nom (Bld) Negative Normal [facility] Comment on above: Order Comment: Speci men Type: BLOOD SPECIMENOrdering Facility: [facility] Address: [address] [place] [address] Performed By: #### T SPN ####[facility] BLOOD BANKCLIA [id number] [place] [address] [place] TYPE AND SCREEN EXPIRATION 10/04/2024 23:59 Normal [facility] Comment on above: Order Comment: Speci men Type: BLOOD SPECIMENOrdering Facility: [facility] Address: [address] [place] [address] Performed By: #### T SPN ####[facility] BLOOD BANKCLIA [id number] [place] [address] [place] BACTERIAL VAGINOSIS NAATon 0 08-31-2024 Lactobacillus crispatus+gasseri+joel senii + Gardnerella vaginalis + Atopobium vaginae rRNA MIKO+probe Ql (Vag fld) Not detected Normal Not detected [facility] Comment on above: Order Comment: Speci men Type: SWABOrdering Facility: [facility] Address: [address] [place] [address] Performed By: #### B VAMP, CVTV ####[facility] LABCLIA [id number] [place] [address] [place] Bacteria Ur Culton Bacteria identified Cx Nom (U) ORGANISM ID: 1 50,000-<100,000 CFU/ml Normal urogenital butch Normal [facility] Comment on above: Performed By: #### 6 30-4 ####[facility] LABIA [id number] [address] [place] C. trachomatis+N. gonorrhoea e DNA MIKO+probe Ql (Unsp spec)on 08-31-2024 C. trachomatis rRNA MIKO+probe Ql (Unsp spec) Not detected Normal Not detected [facility] Comment on above: Order Comment: Speci men Type: SWABOrdering Facility: [facility] Address: [address] [place] [address] Performed By: #### 3 6902-5 ####[facility] LABIA [id number] [address] [place] N. gonorrhoeae rRNA MIKO+probe Ql (Unsp spec) Not detected Normal Not detected [facility] Comment on above: Order Comment: Speci men Type: SWABOrdering Facility: [facility] Address: [address] [place] [address] Performed By: #### 3 6902-5 ####[facility] [id number] [place] [address] [place] BEATRIZ/TRICHOMONAS NAATon 0 08-31-2024 C. glabrata RNA MIKO+probe Ql (Vag fld) Not detected Normal Not detected [facility] Comment on above: Order Comment: Speci men Type: SWABOrdering Facility: [facility] Address: [address] [place] [address] Performed By: #### B VAMP, CVTV ####[facility] [id number] [place] [address] [place] Beatriz sp DNA MIKO+probe Ql (Vag fld) Not detected Normal Not detected [facility] Comment on above: Order Comment: Speci men Type: SWABOrdering Facility: [facility] Address: [address] [place] [address] Result Comment: The Beatriz species group target includes C. albicans, C. tropicalis, C. parapsilosis, and C. dubliniensis. Performed By: #### B VAMP, CVTV ####[facility] LABCLIA [id number] [address] T. vaginalis DNA MIKO+probe Ql (Unsp spec) Not detected Normal Not detected [facility] Comment on above: Order Comment: Speci men Type: SWABOrdering Facility: [facility] Address: [address] [place] [address] Performed By: #### B VAMP, CVTV ####[facility] LABCLIA [id number] [address] [place] POC ADOBE CQ DEVELOPER ULTRASOUNDon 09-01-19 25 Indication Viability; confirm cardiac [...] Read By: Kristin Pollock CNM MATERNAL MEDICINE [facility] Radiology Study observation (narrative) [facility] TOXOon 01-12-2022 Toxoplasma IgG Interp Not detected Invalid Interpretation Code [facility] ([place]) Comment on above: Performed By: #### F T3, FT4, VIDH, LIPID, GFR, CMP, TSH, FERR #### [place] [address] #### DEX, TOXO, EBV, ASO #### [address] [address] Toxoplasma IgG, Acute Negative Normal Negative [facility] ([place]) Comment on above: Performed By: #### F T3, FT4, VIDH, LIPID, GFR, CMP, TSH, FERR #### [place] [address] #### DEX, TOXO, EBV, ASO #### [place] [address] Toxoplasma IgM Interp Not detected Invalid Interpretation Code [facility] ([place]) Comment on above: Performed By: #### F T3, FT4, VIDH, LIPID, GFR, CMP, TSH, FERR #### [place] [address] #### DEX, TOXO, EBV, ASO #### [place] [address] Toxoplasma IgM, Acute Negative Normal Negative [facility] ([place]) Comment on above: Performed By: #### F T3, FT4, VIDH, LIPID, GFR, CMP, TSH, FERR #### [place] [address] #### DEX, TOXO, EBV, ASO #### [place] [address] ANAon 01-11-2022 Nuclear Ab IF (S) [Titer] 40 {titer} Normal Neg 40 [facility] ([place]) Comment on above: Result Comment: DEX Screen and Titer methodology is an immunofluorescent technique utilizing Hep2 Substrate. Performed By: #### F T3, FT4, VIDH, LIPID, GFR, CMP, TSH, FERR #### [place] [address] #### DEX, TOXO, EBV, ASO #### [place] [address] EBVon 01-11-2022 EBV IgG Negative Normal Negative [facility] ([place]) Comment on above: Result Comment: INTE RPRETATION OF EBV IgG BY EIA: Negative: No detectable EBV IgG antibody. Result does not exclude EBV infection. Positive: EBV IgG antibody detected. Indicative of current or past infection. Equivocal: Equivocal for antibodies to EBV. Repeat testing if still indicated. Performed By: #### F T3, FT4, VIDH, LIPID, GFR, CMP, TSH, FERR #### [place] [address] #### DEX, TOXO, EBV, ASO #### [address] [address] EBV IgM Negative Normal Negative [facility] ([place]) Comment on above: Result Comment: INTE RPRETATION [...] VIDH, LIPID, GFR, CMP, TSH, FERR #### [place] [address] #### DEX, TOXO, EBV, ASO #### [address] [address] .Auto Diffon 01-10-2022 Basophil, Absolute 0.0 10 3/mcL Normal 0.0-0.2 [facility] ([place]) Comment on above: Performed By: #### F T3, FT4, VIDH, LIPID, GFR, CMP, TSH, FERR #### [place] [address] #### DEX, TOXO, EBV, ASO #### [address] [address] Basophils/100 WBC (Bld) 0.3 % Normal 0.0-2.5 [facility] ([place]) Comment on above: Performed By: #### F T3, FT4, VIDH, LIPID, GFR, CMP, TSH, FERR #### [place] [address] #### DEX, TOXO, EBV, ASO #### [address] [address] Eosinophil, Absolute 0.1 10 3/mcL Normal 0.0-0.4 [facility] ([place]) Comment on above: Performed By: #### F T3, FT4, VIDH, LIPID, GFR, CMP, TSH, FERR #### [place] [address] #### DEX, TOXO, EBV, ASO #### [address] [address] Eosinophils/100 WBC (Bld) 2.0 % Normal 0.0-7.0 [facility] ([place]) Comment on above: Performed By: #### F T3, FT4, VIDH, LIPID, GFR, CMP, TSH, FERR #### [place] [address] #### DEX, TOXO, EBV, ASO #### [address] [address] Lymphocyte, Absolute 1.7 10 3/mcL Normal 0.8-3.9 [facility] ([place]) Comment on above: Performed By: #### F T3, FT4, VIDH, LIPID, GFR, CMP, TSH, FERR #### [place] [address] #### DEX, TOXO, EBV, ASO #### [address] [address] Lymphocytes/100 WBC (Bld) 30.5 % Normal 10.0-50.0 [facility] ([place]) Comment on above: Performed By: #### F T3, FT4, VIDH, LIPID, GFR, CMP, TSH, FERR #### [place] [address] #### DEX, TOXO, EBV, ASO #### [address] [address] Monocyte, Absolute 0.6 10 3/mcL Normal 0.2-1.0 [facility] ([place]) Comment on above: Performed By: #### F T3, FT4, VIDH, LIPID, GFR, CMP, TSH, FERR #### [address] [address] #### DEX, TOXO, EBV, ASO #### [address] [address] Monocytes/100 WBC (Bld) 10.3 % Normal 1.7-13.0 [facility] ([place]) Comment on above: Performed By: #### F T3, FT4, VIDH, LIPID, GFR, CMP, TSH, FERR #### [address] [address] #### DEX, TOXO, EBV, ASO #### [address] [address] Neutrophils/100 WBC (Bld) 56.9 % Normal 37.0-80.0 [facility] ([place]) Comment on above: Performed By: #### F T3, FT4, VIDH, LIPID, GFR, CMP, TSH, FERR #### [address] [address] #### DEX, TOXO, EBV, ASO #### [address] [address] .GFRon 01-10-2022 GFR 92 ml/min/1.73sqm Normal [facility] ([place]) Comment on above: Result Comment: GFR Population [...] VIDH, LIPID, GFR, CMP, TSH, FERR #### [address] [address] #### DEX, TOXO, EBV, ASO #### [address] [address] GFR Non- 76 ml/min/1.73sqm Normal [facility] ([place]) Comment on above: Result Comment: GFR Population [...] VIDH, LIPID, GFR, CMP, TSH, FERR #### [place] [address] #### DEX, TOXO, EBV, ASO #### [address] [address] .NEUABSon 01-10-2022 Neutrophil, Absolute 3.1 10 3/mcL Normal 2.9-6.2 [facility] ([place]) Comment on above: Performed By: #### F T3, FT4, VIDH, LIPID, GFR, CMP, TSH, FERR #### [address] [address] #### DEX, TOXO, EBV, ASO #### [place] [address] ASOon 01-10-2022 ASO 73.8 IU/mL Normal 25.0-250.0 [facility] ([place]) Comment on above: Result Comment: No te - New Reference Range in effect 19 Performed By: #### F T3, FT4, VIDH, LIPID, GFR, CMP, TSH, FERR #### [place] [address] #### DEX, TOXO, EBV, ASO #### [address] [address] CBCon 01-10-2022 Erythrocyte distribution width (RBC) [Ratio] 12.2 % Normal 11.5-14.5 [facility] ([place]) Comment on above: Performed By: #### F T3, FT4, VIDH, LIPID, GFR, CMP, TSH, FERR #### [place] [address] #### DEX, TOXO, EBV, ASO #### [address] [address] Hematocrit (Bld) [Volume fraction] 39.9 % Normal 37.0-47.0 [facility] ([place]) Comment on above: Performed By: #### F T3, FT4, VIDH, LIPID, GFR, CMP, TSH, FERR #### [place] [address] #### DEX, TOXO, EBV, ASO #### [place] [address] Hgb 13.5 G/dL Normal 12.0-16.0 [facility] ([place]) Comment on above: Performed By: #### F T3, FT4, VIDH, LIPID, GFR, CMP, TSH, FERR #### [place] [address] #### DEX, TOXO, EBV, ASO #### [address] [address] MCH (RBC) [Entitic mass] 30.8 pg Normal 27.0-31.2 [facility] ([place]) Comment on above: Performed By: #### F T3, FT4, VIDH, LIPID, GFR, CMP, TSH, FERR #### [place] [address] #### DEX, TOXO, EBV, ASO #### [address] [address] MCHC 33.8 G/dL Normal 33.0-37.0 [facility] ([place]) Comment on above: Performed By: #### F T3, FT4, VIDH, LIPID, GFR, CMP, TSH, FERR #### [address] [address] #### DEX, TOXO, EBV, ASO #### [place] [address] MCV (RBC) [Entitic vol] 91.2 fL Normal 80.0-94.0 [facility] ([place]) Comment on above: Performed By: #### F T3, FT4, VIDH, LIPID, GFR, CMP, TSH, FERR #### [place] [address] #### DEX, TOXO, EBV, ASO #### [place] [address] Platelet 207 10 3/mcL Normal 130-400 [facility] ([place]) Comment on above: Performed By: #### F T3, FT4, VIDH, LIPID, GFR, CMP, TSH, FERR #### [place] [address] #### DEX, TOXO, EBV, ASO #### [place] [address] Platelet mean volume (Bld) [Entitic vol] 8.5 fL Normal 7.4-10.4 [facility] ([place]) Comment on above: Performed By: #### F T3, FT4, VIDH, LIPID, GFR, CMP, TSH, FERR #### [place] [address] #### DEX, TOXO, EBV, ASO #### [place] [address] RBC 4.38 10 6/mcL Normal 4.20-5.40 [facility] ([place] Comment on above: Performed By: #### F T3, FT4, VIDH, LIPID, GFR, CMP, TSH, FERR #### [place] [address] #### DEX, TOXO, EBV, ASO #### [address] [address] WBC 5.5 10 3/mcL Normal 4.6-10.8 [facility] ([place] Comment on above: Performed By: #### F T3, FT4, VIDH, LIPID, GFR, CMP, TSH, FERR #### [place] [address] #### DEX, TOXO, EBV, ASO #### [place] [address] CMPon 01-10-2022 Albumin Level 4.3 G/dL Normal 3.5-5.0 [facility] ([place] Comment on above: Performed By: #### F T3, FT4, VIDH, LIPID, GFR, CMP, TSH, FERR #### [place] [address] #### DEX, TOXO, EBV, ASO #### [place] [address] Albumin/Globulin [Mass ratio] 1.5 {ratio} Normal 1.1-2.5 [facility] ([place] Comment on above: Performed By: #### F T3, FT4, VIDH, LIPID, GFR, CMP, TSH, FERR #### [place] [address] #### DEX, TOXO, EBV, ASO #### [place] [address] ALP [Catalytic activity/Vol] 70 U/L Normal 40-135 [facility] ([place] Comment on above: Performed By: #### F T3, FT4, VIDH, LIPID, GFR, CMP, TSH, FERR #### [place] [address] #### DEX, TOXO, EBV, ASO #### [place] [id number] ALT [Catalytic activity/Vol] 20 U/L Normal 14-59 [facility] ([place] Comment on above: Performed By: #### F T3, FT4, VIDH, LIPID, GFR, CMP, TSH, FERR #### [place] [address] #### DEX, TOXO, EBV, ASO #### [address] [address] AST [Catalytic activity/Vol] 14 U/L Normal 10-40 [facility] ([place] Comment on above: Performed By: #### F T3, FT4, VIDH, LIPID, GFR, CMP, TSH, FERR #### [place] [address] #### DEX, TOXO, EBV, ASO #### [place] [id number] Bili Total 0.9 mg/dL Normal 0.2-1.0 [facility] ([place] Comment on above: Result Comment: Use of this assay is not recommended for patients undergoing treatment with eltrombopag due to the potential for falsely elevated results. Performed By: #### F T3, FT4, VIDH, LIPID, GFR, CMP, TSH, FERR #### [place] [address] #### DEX, TOXO, EBV, ASO #### [place] [address] BUN/Creatinine Ratio 14 ratio Normal 7-27 [facility] ([place]) Comment on above: Performed By: #### F T3, FT4, VIDH, LIPID, GFR, CMP, TSH, FERR #### [place] [address] #### DEX, TOXO, EBV, ASO #### [address] [address] Calcium [Mass/Vol] 8.7 mg/dL Normal 8.4-10.2 [facility] ([place]) Comment on above: Performed By: #### F T3, FT4, VIDH, LIPID, GFR, CMP, TSH, FERR #### [place] [address] #### DEX, TOXO, EBV, ASO #### [address] [address] Chloride [Moles/Vol] 102 mmol/L Normal 98-107 [facility] ([place]) Comment on above: Performed By: #### F T3, FT4, VIDH, LIPID, GFR, CMP, TSH, FERR #### [address] [address] #### DEX, TOXO, EBV, ASO #### [place] [address] CO2 [Moles/Vol] 26 mmol/L Normal 22-29 [facility] ([place] Comment on above: Performed By: #### F T3, FT4, VIDH, LIPID, GFR, CMP, TSH, FERR #### [address] [address] #### DEX, TOXO, EBV, ASO #### [place] [address] Creatinine [Mass/Vol] 0.90 mg/dL Normal 0.55-1.02 [facility] ([place]) Comment on above: Performed By: #### F T3, FT4, VIDH, LIPID, GFR, CMP, TSH, FERR #### [address] [address] #### DXE, TOXO, EBV, ASO #### [address] [address] Electrolyte Balance 11.0 mEq/L Normal 4.0-15.0 [facility] ([place] Comment on above: Performed By: #### F T3, FT4, VIDH, LIPID, GFR, CMP, TSH, FERR #### [address] [address] #### DEX, TOXO, EBV, ASO #### [place] [address] Globulin 2.9 G/dL Normal [facility] ([place] Comment on above: Performed By: #### F T3, FT4, VIDH, LIPID, GFR, CMP, TSH, FERR #### [address] [address] #### DEX, TOXO, EBV, ASO #### [address] [address] Glucose [Mass/Vol] 90 mg/dL Normal 70-105 [facility] ([place] Comment on above: Performed By: #### F T3, FT4, VIDH, LIPID, GFR, CMP, TSH, FERR #### [address] [address] #### DEX, TOXO, EBV, ASO #### [address] [address] Potassium [Moles/Vol] 3.8 mmol/L Normal 3.5-5.1 [facility] ([place]) Comment on above: Performed By: #### F T3, FT4, VIDH, LIPID, GFR, CMP, TSH, FERR #### [place] [address] #### DEX, TOXO, EBV, ASO #### [address] [address] Sodium [Moles/Vol] 139 mmol/L Normal 136-145 [facility] ([place] Comment on above: Performed By: #### F T3, FT4, VIDH, LIPID, GFR, CMP, TSH, FERR #### [address] [address] #### DEX, TOXO, EBV, ASO #### [address] [address] Total Protein 7.2 G/dL Normal 6.4-8.2 [facility] ([place]) Comment on above: Performed By: #### F T3, FT4, VIDH, LIPID, GFR, CMP, TSH, FERR #### [address] [address] #### DEX, TOXO, EBV, ASO #### [address] [address] Urea nitrogen [Mass/Vol] 13 mg/dL Normal 7-18 [facility] ([place] Comment on above: Performed By: #### F T3, FT4, VIDH, LIPID, GFR, CMP, TSH, FERR #### [address] [address] #### DEX, TOXO, EBV, ASO #### [address] [address] Kristian 01-10-2022 Ferritin [Mass/Vol] 102.0 ng/mL Normal 8.0-252.0 [facility] ([place] Comment on above: Performed By: #### F T3, FT4, VIDH, LIPID, GFR, CMP, TSH, FERR #### [address] [address] #### DEX, TOXO, EBV, ASO #### [address] [address] FT3on 01-10-2022 Free T3 [Mass/Vol] 2.68 pg/mL Normal 2.30-4.00 [facility] ([place] Comment on above: Performed By: #### F T3, FT4, VIDH, LIPID, GFR, CMP, TSH, FERR #### [address] [address] #### DEX, TOXO, EBV, ASO #### [address] [address] FT4on 01-10-2022 Free T4 [Mass/Vol] 1.01 ng/dL Normal 0.76-1.46 [facility] ([place] Comment on above: Performed By: #### F T3, FT4, VIDH, LIPID, GFR, CMP, TSH, FERR #### [place] [id number] #### DEX, TOXO, EBV, ASO #### [address] [address] LABORATORYOrdered By: Magali Horton on 01-10-2022 Albumin [...] 01-10-2022 Cholesterol [Mass/Vol] 133 mg/dL Normal 0-200 [facility] ([place]) Comment on above: Result Comment: Chol esterol Reference Interval: Less than 200 Desirable 200-239 Borderline high risk 240 and above High risk Performed By: #### F T3, FT4, VIDH, LIPID, GFR, CMP, TSH, FERR #### [address] [address] #### DEX, TOXO, EBV, ASO #### [address] [address] Cholesterol in HDL [Mass/Vol] 60 mg/dL Normal 40-60 [facility] ([place] Comment on above: Performed By: #### F T3, FT4, VIDH, LIPID, GFR, CMP, TSH, FERR #### [address] [address] #### DEX, TOXO, EBV, ASO #### [address] [address] Cholesterol in LDL [Mass/Vol] 65 mg/dL Normal 0-130 [facility] ([place] Comment on above: Performed By: #### F T3, FT4, VIDH, LIPID, GFR, CMP, TSH, FERR #### [address] [address] #### DEX, TOXO, EBV, ASO #### [address] [address] Triglyceride [Mass/Vol] 38 mg/dL Normal 0-150 [facility] ([place] Comment on above: Result Comment: Trig lyceride Reference Interval: Less than 150 Normal 150-199 Borderline high risk 200-499 High risk 500 or higher Very high risk Performed By: #### F T3, FT4, VIDH, LIPID, GFR, CMP, TSH, FERR #### [address] [address] #### DEX, TOXO, EBV, ASO #### [address] [address] TSHon 01-10-2022 TSH Qn 1.76 m[IU]/L Normal 0.36-3.74 [facility] ([place]) Comment on above: Performed By: #### F T3, FT4, VIDH, LIPID, GFR, CMP, TSH, FERR #### [place] [id number] #### DEX, TOXO, EBV, ASO #### [place] [address] VIDHon 01-10-2022 Vit. D 25-Hydroxy 23.4 ng/mL Normal [facility] ([place] Comment on above: Result Comment: Inte rpretive Values Based on Total 25(OH) Vitamin D: Deficient <20 ng/mL Insufficient 20 - <30 ng/mL Sufficient 30-100 ng/mL Performed By: #### F T3, FT4, VIDH, LIPID, GFR, CMP, TSH, FERR #### [place] [address] #### DEX, TOXO, EBV, ASO #### [address] [address] Vital Signs Date Time Vital Sign Value Performing Clinician Marco amezcua 12-21-2024 15:24-0400 Body mass index (BMI) [Ratio] 30.71 kg/m2 Kristin Pollock APRN.CNM Work Phone: [facility] 12-21-2024 15:24-0400 Body weight 90.27 kg Kristin Pollock APRN.CNM Work Phone: [facility] 12-21-2024 15:24-0400 Diastolic blood pressure 62 mm[Hg] Kristin Pollock [employer].CNM Work Phone: [facility] 12-21-2024 15:24-0400 Systolic blood pressure 120 mm[Hg] Kristin Pollock [employer].CNM Work Phone: [facility] 11-30-2024 14:54-0400 Body mass index (BMI) [Ratio] 30.09 kg/m2 Kristin Pollock [employer].CNM Work Phone: [facility] 11-30-2024 14:54-0400 Body weight 88.45 kg Kristin Pollock [employer].CNM Work Phone: [facility] 11-30-2024 14:54-0400 Diastolic blood pressure 66 mm[Hg] Kristin Pollock [employer].CNM Work Phone: [facility] 11-30-2024 14:54-0400 Systolic blood pressure 118 mm[Hg] Kristin Pollock [employer].CNM Work Phone: [facility] 11-23-2024 10:24-0400 Body mass index (BMI) [Ratio] 29.94 kg/m2 Kristin Pollock [employer].CNM Work Phone: [facility] 11-23-2024 10:24-0400 Body weight 88 kg Kristin Pollock [employer].CNM Work Phone: [facility] 11-23-2024 10:24-0400 Diastolic blood pressure 58 mm[Hg] Kristin Pollock [employer].CNM Work Phone: [facility] 11-23-2024 10:24-0400 Systolic blood pressure 102 mm[Hg] Kristin Pollock [employer].CNM Work Phone: [facility] 10-26-2024 09:54-0400 Body mass index (BMI) [Ratio] 29.16 kg/m2 Kristin Pollock [employer].CNM Work Phone: [facility] 10-26-2024 09:54-0400 Body weight 85.73 kg Kristin Pollock [employer].CNM Work Phone: [facility] 10-26-2024 09:54-0400 Diastolic blood pressure 64 mm[Hg] Kristin Pollock [employer].CNM Work Phone: [facility] 10-26-2024 09:54-0400 Systolic blood pressure 106 mm[Hg] Kristin Pollock [employer].CNM Work Phone: [facility] 10-01-2024 15:08-0400 Body mass index (BMI) [Ratio] 29.32 kg/m2 Johanna Plotluzmaria [employer].CNM Work Phone: [facility] 10-01-2024 15:08-0400 Body weight 86.18 kg Johanna Plotluzmaria [employer].CNM Work Phone: [facility] 10-01-2024 15:08-0400 Diastolic blood pressure 62 mm[Hg] Johanna Plotluzmaria [employer].CNM Work Phone: [facility] 10-01-2024 15:08-0400 Systolic blood pressure 114 mm[Hg] Johanna Plotluzmaria [employer].CNM Work Phone: [facility] 08-31-2024 08:52-0400 Body height 171.5 cm Kristin Pollock [employer].CNM Work Phone: [facility] 08-31-2024 08:52-0400 Body mass index (BMI) [Ratio] 29.38 kg/m2 Kristin Pollock [employer].CNM Work Phone: [facility] 08-31-2024 08:52-0400 Body weight 86.36 kg Kristin Pollock [employer].CNM Work Phone: [facility] 08-31-2024 08:52-0400 Diastolic blood pressure 68 mm[Hg] Kristin Pollock [employer].CNM Work Phone: [facility] 08-31-2024 08:52-0400 Systolic blood pressure 120 mm[Hg] Kristin Pollock [employer].CNM Work Phone: [facility] 11-09-2021 14:06-0400 Body height 172.7 cm Kristin Pollock APRN.CNTio Work Phone: [facility] 11-09-2021 14:06-0400 Body weight 81.65 kg Kristin Pollock APRN.CNM Work Phone: [facility] 11-09-2021 14:06-0400 Diastolic blood pressure 62 mm[Hg] Kristin Pollock APRN.CNTio Work Phone: [facility] 11-09-2021 14:06-0400 Systolic blood pressure 120 mm[Hg] Kristin Pollock APRN.CNM Work Phone: [facility] 06-22-2020 14:52-0500 Body Temperature 97.59 [degF] [facility] 06-22-2020 14:52-0500 Body weight 79.02 kg Bety [facility] 06-22-2020 14:52-0500 BP Diastolic 61 mm[Hg] [facility] 06-22-2020 14:52-0500 BP Systolic 111 mm[Hg] [facility] 06-22-2020 14:52-0500 Pulse (Heart Rate) 61 /min [facility] cecelia 06-22-2020 14:52-0500 Pulse Oximetry 99 % [facility] Encounters Encounter Date Encounter Type Care Provider Facility Start: 02-17-2025 End: 02-17-2025 ambulatory JOHANNA PLOTLUZMARIA Facility:[facility] Start: 02-02-2025 End: 02-02-2025 ambulatory HENRY SAUCEDA Facility:[facility] Start: 01-27-2025 End: 01-27-2025 [facility] Start: 01-26-2025 End: 01-26-2025 [facility] Start: 01-18-2025 End: 01-18-2025 ambulatory JOHANNA PAZ Facility:[facility] Start: 12-21-2024 End: 12-21-2024 Patient encounter procedure Kristin Pollock APRN.CNM Work Phone: OB/Gynecology Comment on above: Screening for diabet es mellitus (Primary Dx); Encounter for supervision of normal first in second trimester ([facility]); Generalized anxiety disorder; Obsessive-compulsive disorder, unspecified type; 23 weeks gestation of (HCC) Start: 12-21-2024 End: 12-21-2024 [facility] Start: 11-30-2024 End: 11-30-2024 Patient encounter procedure Kristin Pollock APRN.CNM Work Phone: OB/Gynecology Comment on above: Encounter for superv ision of normal first in second trimester (HCC) (Primary Dx); History of depression; Generalized anxiety disorder; Obsessive-compulsive disorder, unspecified type; 20 weeks gestation of ([facility]); RLQ abdominal pain Start: 11-30-2024 End: 11-30-2024 [facility] KRISTIN IKE Facility:[facility] Start: 11-30-2024 End: 11-30-2024 Telephone encounter Kristin [...] gestation of (HCC) Encounter for anatomic survey ([facility]) (Primary Dx); 19 weeks gestation of ([facility]); Suspected anomaly not found Start: 11-23-2024 End: 11-23-2024 [facility] Facility:[facility] Start: 10-28-2024 End: 12-28-2024 Follow-up encounter Margoth Arndt MD Work Phone: OB/Gynecology Start: 10-26-2024 End: 10-26-2024 Patient encounter procedure Kristin Pollock APRN.CNM Work Phone: OB/Gynecology Comment on above: Encounter for superv ision of normal first in second trimester (HCC) (Primary Dx); 15 weeks gestation of (HCC); Rh negative state in antepartum period, second trimester ([facility]); History of depression; Generalized anxiety disorder Start: 10-26-2024 End: 10-26-2024 ambulatory [facility] Facility:[facility] Start: 10-06-2024 End: 12-06-2024 Follow-up encounter Margoth Arndt MD Work Phone: [place] [facility] Start: 10-06-2024 End: 10-06-2024 Telephone encounter Henry Sauceda MD Work Phone: OB/Gynecology Start: 10-01-2024 End: 10-01-2024 [facility] Start: 10-01-2024 End: 10-01-2024 Patient encounter procedure Johanna Paz APRN.CNM Work Phone: OB/Gynecology Comment on above: Generalized anxiety disorder (Primary Dx); Obsessive-compulsive disorder, unspecified type; Encounter for supervision of normal first in first trimester ([facility]); History of depression; 12 weeks gestation of ([facility]) with fetus of unknown gestational age ([facility]) Start: 10-01-2024 End: 10-01-2024 ambulatory [facility]ANNA [facility] Facility:[facility] Start: 09-24-2024 End: 09-24-2024 ambulatory Kristin Pollock APRN.CNTio Work Phone: OB/Gynecology Start: 09-24-2024 End: 09-24-2024 Patient encounter procedure Kristin Pollock [employer].CNM Work Phone: OB/Gynecology Comment on above: Upcoming [...] Start: 08-31-2024 End: 08-31-2024 ambulatory KRISTIN POLLOCK Facility:[facility] Start: 01-10-2022 End: 01-15-2022 ambulatory NATASHA VARGAS MD Facility: Start: 01-10-2022 End: 01-14-2022 Outreach [facility] NATASHA VARGAS MD [facility] Start: 11-09-2021 End: 11-09-2021 Patient encounter procedure [...] encounter procedure Bety Salas Arianna Work Phone: [facility] Comment on above: Viral URI with cough (Primary Dx) Procedures Date Procedure Procedure Detail Performing Clinician Start: 01-26-2025 Antibody screen NIA PAZ Comment on above: Order Comment: Speci men Type: BLOOD SPECIMEN Ordering Facility: [facility] Address: [address] [place] [address] Performed By: #### T SPN #### [facility] CLIA [id number] [address] [place] [address] [place] Start: 11-30-2024 Urnls dip stick/tabl et rgnt auto w/o microscopy Kristin Pollock APRN.CNM Work Phone: Start: 11-23-2024 Us preg uterus after 1st trimest / gestation Kristin Pollock APRN.CNM Work Phone: Start: 10-01-2024 Antibody screen NIA PAZ Comment on above: Order Comment: Speci men Type: BLOOD SPECIMENOrdering Facility: [facility] Address: [address] [place] [address] Performed By: #### T SPN ####[facility]CLIA [id number] [place] [address] [place] Start: 10-01-2024 Us preg uterus after 1st trimest / gestation Kristin Pollock APRN.CNM Work Phone: Start: 08-31-2024 Us uterus l imited 1/> fetuses Kristin Pollock APRN.CNM Work Phone: Plan of Treatment Date Care Activity Detail Author Start: 05-07-2026 Screening for malign ant neoplasm of cervix Cervical Cancer Screening [facility] Start: 02-17-2025 RSV Vaccine (1 - Ris k 1-dose series) RSV Vaccine (1 - Risk 1-dose series) [facility] Start: 01-18-2025 End: 01-18-2025 Patient encounter procedure 01/18/2025 8:00 AM EDT Routine Office Visit OB/Gynecology [address] [place] [address] Johanna Paz APRN.CNM [address] [place] [address] OB OB/Gynecology Comment on above: OB Start: 12-21-2024 End: 12-21-2024 Patient encounter procedure 12/21/2024 3:15 PM EDT Routine Office Visit OB/Gynecology [address] [place] [address] Kristin Pollock APRN.CNM [address] [place] [address] OB OB/Gynecology Comment on above: OB Start: 12-21-2024 End: 03-22-2025 ANEMIA REFLEX PANEL ANEMIA REFLEX PANEL Lab Routine Encounter for supervision of normal first in second trimester (HCC) 23 weeks gestation of (HCC) Expected: 12/21/2024, Expires: 03/22/2025 [facility] Comment on above: Expected: 12/21/2024 , Expires: 03/22/2025 Start: 12-21-2024 End: 12-21-2025 GESTATIONAL GLUCOSE SCREEN, 1-HOUR, 50 GRAM, NON-FASTING GESTATIONAL GLUCOSE SCREEN, 1-HOUR, 50 GRAM, NON-FASTING Lab Routine Screening for diabetes mellitus Encounter for supervision of normal first in second trimester (HCC) 23 weeks gestation of (HCC) Expected: 12/21/2024, Expires: 12/21/2025 [facility] Work Phone: Comment on above: Expected: 12/21/2024 , Expires: 12/21/2025 Start: 12-21-2024 End: 12-21-2025 SYPHILIS TREPONEMAL W/REFLEX SYPHILIS TREPONEMAL W/REFLEX Lab Routine Encounter for supervision of normal first in second trimester (HCC) 23 weeks gestation of (HCC) Expected: 12/21/2024, Expires: 12/21/2025 [facility] Comment on above: Expected: 12/21/2024 , Expires: 12/21/2025 Start: 12-14-2024 Influenza vaccination [facility] Start: 11-23-2024 End: 11-23-2024 Patient encounter procedure [facility] Comment on above: anatomy OB 20 wks Start: 10-26-2024 End: 10-26-2024 Patient encounter procedure 10/26/2024 9:45 AM EDT Routine Office Visit OB/Gynecology [address], [place] [id number] Kristin Pollock APRN.CN [address] [place] [address] OB - 16 wks OB/Gynecology Comment on above: OB - 16 wks Start: 10-01-2024 End: 10-01-2024 Patient encounter procedure [facility] Comment on above: Nuchal OB 12 wks Start: 10-01-2024 End: 12-31-2024 Chromosome 21 trisomy [Presence] in Blood or Tissue by Cytogenetics [facility] Work Phone: Comment on above: Expected: 10/01/2024 , Expires: 12/31/2024 Start: 08-31-2024 End: 11-30-2024 ANEMIA REFLEX PANEL ANEMIA REFLEX PANEL Lab Routine with fetus of unknown gestational age (HCC) Expected: 08/31/2024, Expires: 11/30/2024 [facility] Work Phone: Comment on above: Expected: 08/31/2024 , Expires: 11/30/2024 Start: 08-31-2024 End: 11-30-2024 Hemoglobin A1c in Blood HEMOGLOBIN A1C Lab Routine with fetus of unknown gestational age (HCC) Expected: 08/31/2024, Expires: 11/30/2024 [facility] Comment on above: Expected: 08/31/2024 , Expires: 11/30/2024 Start: 08-31-2024 End: 11-30-2024 HEMOGLOBIN EVALUATION CASCADE HEMOGLOBIN EVALUATION CASCADE Lab Routine with fetus of unknown gestational age (HCC) Genetic screening Expected: 08/31/2024, Expires: 11/30/2024 [facility] Comment on above: Expected: 08/31/2024 , Expires: 11/30/2024 Start: 08-31-2024 End: 11-30-2024 Hepatitis B virus surface Ag [Presence] in Serum HEPATITIS B SURFACE ANTIGEN Lab Routine with fetus of unknown gestational age (HCC) Expected: 08/31/2024, Expires: 11/30/2024 [facility] Comment on above: Expected: 08/31/2024 , Expires: 11/30/2024 Start: 08-31-2024 End: 11-30-2024 Hepatitis C virus Ab [Presence] in Serum HEPATITIS C ANTIBODY IA WITH CONFIRMATION Lab Routine with fetus of unknown gestational age (HCC) Expected: 08/31/2024, Expires: 11/30/2024 [facility] Comment on above: Expected: 08/31/2024 , Expires: 11/30/2024 Start: 08-31-2024 End: 11-30-2024 HIV 1+2 Ab [Presence] in Serum or Plasma by Immunoassay HIV 1/2 COMBO WITH REFLEX TO DIFFERENTIATION Lab Routine with fetus of unknown gestational age (HCC) Expected: 08/31/2024, Expires: 11/30/2024 [facility] Comment on above: Expected: 08/31/2024 , Expires: 11/30/2024 Start: 08-31-2024 End: 08-31-2025 OBSTETRIC ULTRASOUND WHI OBSTETRIC ULTRASOUND WHI Anc Imaging Routine with fetus of unknown gestational age (HCC) Expected: 08/31/2024, Expires: 08/31/2025 [facility] Comment on above: Expected: 08/31/2024 , Expires: 08/31/2025 Start: 08-31-2024 End: 11-30-2024 RUBELLA IGG ANTIBODY RUBELLA IGG ANTIBODY Lab Routine with fetus of unknown gestational age (HCC) Expected: 08/31/2024, Expires: 11/30/2024 [facility] Comment on above: Expected: 08/31/2024 , Expires: 11/30/2024 Start: 08-31-2024 End: 11-30-2024 SYPHILIS TREPONEMAL W/REFLEX SYPHILIS TREPONEMAL W/REFLEX Lab Routine with fetus of unknown gestational age (HCC) Expected: 08/31/2024, Expires: 11/30/2024 [facility] Comment on above: Expected: 08/31/2024 , Expires: 11/30/2024 Start: 08-31-2024 End: 11-30-2024 TYPE + SCREEN TYPE + SCREEN Blood Bank Routine with fetus of unknown gestational age (HCC) Expected: 08/31/2024, Expires: 11/30/2024 [facility] Comment on above: Expected: 08/31/2024 , Expires: 11/30/2024 Start: 12-15-2023 Covid-19 Vaccine ( season) Covid-19 Vaccine () [facility] Start: 2023 HPV Vaccine (1 - 3-d ose SCDM series) HPV Vaccine (1 - 3-dose SCDM series) [facility] Start: 12-14-2021 Influenza vaccination INFLUENZA (#1) [facility] Start: 12-15-2019 Influenza vaccination INFLUENZA (#1) [facility] Start: 2017 PAP TESTING PAP TESTING [facility] Start: 2015 Urine microalbumin profile [facility] Start: 2014 Depression Screening Depression Scre ening [facility] Start: 2014 HEPATITIS C SCREENING HEPATITIS C [facility] Start: 2014 Hepatitis C screening Hepatitis C [facility] Start: 2014 HIV SCREENING HIV SCREENING [facility] Start: 2014 HIV screening HIV Screening [facility] Start: 2010 PEDS TO ADULT TRANSITION ANNUAL ASSESSMENT PEDS TO ADULT TRANSITION ANNUAL ASSESSMENT [facility] Start: 2008 Adult depression screening assessment DEPRESSION SCREENING [facility] Start: 2008 PEDS TO ADULT TRANSITION INITIAL DISCUSSION PEDS TO ADULT TRANSITION INITIAL DISCUSSION [facility] Start: 2007 HPV VACCINE (1 - 2-d ose series) HPV VACCINE (1 - 2-dose series) [facility] Start: 2006 MENINGOCOCCAL B: Consider based on risk (1 of 2 - Risk Bexsero 2-dose series) MENINGOCOCCAL B: Consider based on risk (1 of 2 - Risk Bexsero 2-dose series) [facility] Start: 1996 COVID-19 VACCINE (#1) COVID-19 VACCI NE (#1) [facility] Bacteria identified in Urine by Culture BACTERIAL CULTURE, URINE Microbiology Routine with fetus of unknown gestational age (HCC) 08/31/2024 9:49 AM EDT [facility] Bacteria identified in Urine by Culture BACTERIAL CULTURE, URINE Microbiology Routine Encounter for supervision of normal first in second trimester ([facility]) Rh negative state in antepartum period, second trimester ([facility]) 10/26/2024 1:20 PM EDT [facility] Work Phone: Bacteria identified in Urine by Culture BACTERIAL CULTURE, URINE Microbiology Routine Encounter for supervision of normal first in second trimester ([facility]) RLQ abdominal pain 11/30/2024 4:40 PM EDT [facility] Work Phone: BACTERIAL VAGINOSIS NAAT BACTERIAL VAGINOSIS NAAT Lab Routine with fetus of unknown gestational age (HCC) 08/31/2024 9:49 AM EDT [facility] BEATRIZ/TRICHOMONAS NAAT BEATRIZ/TRICHOMONAS NAAT Lab Routine with fetus of unknown gestational age ([facility]) 08/31/2024 9:49 AM EDT [facility] Chlamydia trachomatis+Neisseria gonorrhoeae DNA [Presence] in Unspecified specimen by MIKO with probe detection GC/CHLAMYDIA DNA DET Lab Routine Screen for STD (sexually transmitted disease) 11/09/2021 2:41 PM T [facility] Work Phone: Chlamydia trachomatis+Neisseria gonorrhoeae DNA [Presence] in Unspecified specimen by MIKO with probe detection GONORRHEA/CHLAMYDIA NAAT Lab Routine with fetus of unknown gestational age ([facility]) 08/31/2024 9:49 AM EDT [facility] PAP FLUID CERVICAL SCREENING PAP FLUID CERVICAL SCREENING Lab Routine Encounter for gynecological examination (general) (routine) without abnormal findings Screening for cervical cancer 11/09/2021 2:41 PM T [facility] Work Phone: Immunizations Immunization Date Immunization Notes Care Provider [facility] 04-24-2021 SARS-CoV-2 mRNA (tozinameran) vaccine NATASHA VARGAS MD [facility] 08-15-2020 SARS-CoV-2 mRNA (tozinameran) vaccine NATASHA VARGAS MD [facility] Comment on above: Result Comment: 2021: TPVALL 07-18-2020 SARS-CoV-2 mRNA (tozinameran) vaccine NATASHA VARGAS MD [facility] Comment on above: Result Comment: 2021: TPVALL 02-14-2015 measles/mumps/rubell a virus vaccine NATASHA VARGAS MD [facility] 01-12-2015 measles/mumps/rubell a virus vaccine NATASHA VARGAS MD [facility] 11-13-2001 measles/mumps/rubell a virus vaccine NATASHA VARGAS MD [facility] 11-13-2001 poliovirus vaccine, inactivated NATASHA VARGAS MD [facility] 06-21-1997 measles/mumps/rubell a virus vaccine NATASHA VARGAS MD [facility] 06-21-1997 varicella virus vaccine LISSETH VARGAS MD [facility] 1996 hepatitis B pediatri c vaccine NATASHA VARGAS MD [facility] 1996 hepatitis B pediatri c vaccine NATASHA VARGAS MD [facility] 1996 hepatitis B pediatri c vaccine NATASHA VARGAS MD [facility] Payers Date Payer Category Payer [facility] BLUE ACCE PPO [id number] 2024 Unknown [id number] 2022 Unknown [id number] 2021 Unknown [employer]UE C[employer] PPO OOS [id number] [phone]- [phone] [address] [place] [address] PPO [id number] 2020 Unknown [employer] [facility] [id number] 2020-Present PPO [id number] 1996 Unknown [id number] Social History Date Type Detail Facility Start: 06-22-2020 End: 05-07-2023 Tobacco smoking status NHIS Never smoker [facility] Start: 06-22-2020 End: 05-07-2023 Tobacco use and exposure [facility] used [facility] Start: [facility] Sex Assigned At Not on file [facility] Exposure to SARS-CoV -2 (event) Not sure [facility] Start: 1996 Sex Assigned At Female [facility] Sex Assigned At [facility] Start: 08-31-2024 End: 10-01-2024 Alcoholic beverage intake Lifetime non-drinker (finding) [facility] Start: 05-07-2023 End: 08-31-2024 History of Social function [facility] Start: 05-07-2023 End: 08-31-2024 Tobacco use panel [facility] Start: 06-22-2020 National Score (1-10 0), lower number is lower risk 54 [facility] Start: 08-28-2024 Education 17 [facility] Start: 07-22-2024 [facility] Start: 11-08-2021 Gender identity Identifies as female gender (finding) [facility] Start: 11-08-2021 Sexual orientation Heterosexual (fin ding) [facility] Goals Date Patient Goal Desired Activity /State Personal health goal Clinical Notes 11-09-2021 to 01-27-2025 Quick Notes - Kristin Pollock APRN.[facility] - 12/21/2024 3:52 PM EDTPrenatal Quick Notes - Kristin Pollock APRN.[facility] - 12/21/2024 3:52 PM EDTPatient InstructionsPatient Instructions Note Date & Type Note Facility 01-27-2025 Note HNO ID: [id number] Author: NAN BASS RN Service: ? Author [...] her Rhophylac pocket card. Nan Bass RN [facility] 01-26-2025 Note HNO ID: [id number] Author: NAN BASS RN Service: ? Author Type: Registered Nurse Type: Progress Notes Filed: 01/26/2025 09:19 Note Text: Lynette Norris 29 year old is here for her injection of Rhophylac. Patient would like to wait until we have received her Type and Screen results before receiving Rhophylac. Patient had bleeding in her 1st and 2nd trimester. Dr. Arndt sent patient a Ceon message on 01/18/25 stating that if she had been sensitized it wouldn't cause any harm, but there would be no benefit to receiving the Rhophlac. Patient will wait for our call tomorrow and then reschedule nurse visit. Nan Bass RN [facility] 12-21-2024 Progress note Formatting of t his [...] RTO in 4 weeks Kristin Pollock APRN.CNM [facility] 12-21-2024 Miscellaneous Notes BERYL-S: Lynette Norris is [...] Kristin Pollock APRN.CNM documented in this encounter [facility] 12-21-2024 Instructions Kristin Pollock APRN.CNM - 12/21/2024 [...] the above symptoms, contact our office at [phone] and ask to speak with a nurse. After hours, you can call doctors registry at [phone] OR call [facility] at [phone] and ask to have the doctor sound effects person paged. If you consider this an emergency, dial 4 or go to your nearest emergency department. NEED HELP? Are you dealing with a violent or abusive relationship? Are you a victim of rape or sexual assult? Call [facility] ([place]) 24 hour Crisis Hotline: 674.217.1156 or 028-661-3011. MANUAL Your Guide to a Healthy manual is now on-line. Visit [email or web address] to download your free copy Oral Glucose Tolerance Test During Your provider has ordered an oral glucose tolerance test. For more information: My [facility] Oral Glucose Tolerance Test How do I [...] you need an appointment. Safe Sleep for [place] For more information: [email or web address] Safe Sleep Healthy babies are safest when sleeping on their backs at nighttime and during naps. Side sleeping is not as safe as back sleeping and is not advised. documented in this encounter [facility] 11-30-2024 Telephone encounter Note Order signed and faxed. Ania Clarke RN [facility] 11-30-2024 Miscellaneous Notes Order signed and faxed. Ania Clarke RN Received breast pump RX from [employer]. To BERYL to sign. Nan Bass RN documented in this encounter [facility] 11-30-2024 Miscellaneous Notes BERYL-S: Lynette Norris is [...] Kristin Pollock APRN.CNM documented in this encounter [facility] 11-30-2024 Progress note Formatting of t his [...] 4 weeks PTL precautions reviewed Kristin Pollock, CONSTRUCTION MATERIALS TESTER.CNM [facility] 11-30-2024 Note HNO ID: [id number] Author: KRISTIN POLLOCK APRN.CNM Service: ? Author Type: Calculus Tutor Type: Progress Notes Filed: 12/01/2024 09:04 Note Text: [facility] 11-30-2024 History of Presen t illness Narrative documented in this encounter [facility] 11-30-2024 Instructions Mildred Oconnell MA - 11/30/2024 2:50 PM EDT SEQUENTIAL SCREENINGS The [facility] offers sequential screenings for women who are [...] It will require an appointment with our shipping technician. This is not an ultrasound performed [...] the above symptoms, contact our office at [phone] and ask to speak with a nurse. After hours, you can call doctors registry at [phone] OR call [facility] at [phone] and ask to have the doctor sound effects person paged. If you consider this an emergency, dial or go to your nearest emergency department. NEED HELP? Are you dealing with a violent or abusive relationship? Are you a victim of rape or sexual assult? Call [facility] ([place]) 24 hour Crisis Hotline: 641.169.7755 or 696-566-1226. MANUAL Your Guide to a Healthy manual is now on-line. Visit [email or web address] brionnaJuan Mannemarie to download your free copy documented in this encounter [facility] 11-30-2024 Telephone encounter Note Patient notified and scheduled. Ania Clarke RN [facility] 11-30-2024 Miscellaneous Notes Patient notified and scheduled. [...] Ania Clarke RN documented in this encounter [facility] 11-30-2024 Telephone encounter Note Can see her at 3pm if that works for her. Thank you, Kristin Pollock APRN.CNM [facility] 11-30-2024 Telephone encounter Note 20w5d Calling c/o [...] of now. Please advise. Ania Clarke RN [facility] 11-25-2024 Telephone encounter Note Received breast pump RX from [employer]. To BERYL to sign. Nan Bass, RN T [facility] 11-23-2024 Progress note Formatting of t his [...] RTO in 4 weeks Kristin Pollock APRN.CNM [facility] 11-23-2024 Miscellaneous Notes JESSE: Lynette Norris is [...] Kristin Pollock APRN.CNM documented in this encounter [facility] 11-23-2024 Instructions Prudence Crane MA - 11/23/2024 10:24 AM EDT SEQUENTIAL SCREENINGS The [facility] offers sequential screenings for women who are [...] It will require an appointment with our shipping technician. This is not an ultrasound performed [...] the above symptoms, contact our office at [phone] and ask to speak with a nurse. After hours, you can call doctors registry at [phone] OR call [facility] at [phone] and ask to have the doctor sound effects person paged. If you consider this an emergency, dial 9-1- or go to your nearest emergency department. NEED HELP? Are you dealing with a violent or abusive relationship? Are you a victim of rape or sexual assult? Call [facility] ([place]) 24 hour Crisis Hotline: 147.289.2986 or 704-361-0064. MANUAL Your Guide to a Healthy manual is now on-line. Visit [email or web address] Deangelo to download your free copy documented in this encounter [facility] 10-26-2024 Progress note Formatting of t his [...] RTO in 4 weeks Kristin Pollock APRN.CNM [facility] 10-26-2024 Miscellaneous Notes JESSE: Lynette Norris is [...] Kristin Pollock APRN.CNM documented in this encounter [facility] 10-26-2024 Instructions Luciano Goodwin LPN - 10/26/2024 9:45 AM EDT SEQUENTIAL SCREENINGS The [facility] offers sequential screenings for women who are [...] It will require an appointment with our shipping technician. This is not an ultrasound performed [...] the above symptoms, contact our office at [phone] and ask to speak with a nurse. After hours, you can call doctors registry at [phone] OR call [facility] at [phone] and ask to have the doctor sound effects person paged. If you consider this an emergency, dial 9--1 or go to your nearest emergency department. NEED HELP? Are you dealing with a violent or abusive relationship? Are you a victim of rape or sexual assult? Call [facility] ([place]) 24 hour Crisis Hotline: 597.675.3053 or 784-504-1465. MANUAL Your Guide to a Healthy manual is now on-line. Visit [email or web address] brionnaGuannemarie to download your free copy documented in this encounter [facility] 10-06-2024 Telephone encounter Note agree if below. If recurs offer appt. Margoth Arndt MD [facility] 10-06-2024 Miscellaneous Notes agree if below. If [...] appt scheduled 10/26/24. documented in this encounter [facility] 10-06-2024 Telephone encounter Note 12w6d Pt calls [...] Neville RN Next OB appt scheduled 10/26/24. [facility] 10-01-2024 Progress note Formatting of t his [...] or sooner if needed Johanna Paz APRN.CNM [facility] 10-01-2024 Miscellaneous Notes S: Lynette Norris is [...] Johanna Paz APRN.CNM documented in this encounter [facility] 10-01-2024 Instructions Maxwell Guerrero MA - 10/01/2024 2:57 PM EDT SEQUENTIAL SCREENINGS The [facility] offers sequential screenings for women who are [...] It will require an appointment with our shipping technician. This is not an ultrasound performed [...] the above symptoms, contact our office at [phone] and ask to speak with a nurse. After hours, you can call doctors registry at [phone] OR call [facility] at [phone] and ask to have the doctor sound effects person paged. If you consider this an emergency, dial 9-2-2 or go to your nearest emergency department. NEED HELP? Are you dealing with a violent or abusive relationship? Are you a victim of rape or sexual assult? Call [facility] [place] ([facility] 24 hour Crisis Hotline: 193.785.6927 or 069-977-5709. MANUAL Your Guide to a Healthy manual is now on-line. Visit [email or web address]/[email or web address] Deangelo to download your free copy documented in this encounter [facility] 08-31-2024 Progress note Formatting of t his note might be different from the original. BERYL-NOB, see progress note. Desires NIPT and carrier screening. First trimester anatomy US and PN labs at 12 weeks. Kristin Pollock APRN.CNM [facility] 08-31-2024 Miscellaneous Notes [place], see progress note. Desires NIPT and carrier screening. First trimester anatomy US and PN labs at 12 weeks. Kristin Pollock APRN.CNM documented in this encounter [facility] 08-28-2024 Note HNO ID: [id number] Author: KRISTIN POLLOCK APRN.CNM Service: ? Author Type: Calculus Tutor Type: Progress Notes Filed: 08/31/2024 12:58 Note Text: Pharmacy Informatics Manager offered: Patient declines. INITIAL OB ASSESSMENT HPI: [...] the following (please check all that apply)? 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 [facility] 08-28-2024 History of Presen t illness Narrative Pharmacy Informatics Manager offered: Patient declines. INITIAL OB ASSESSMENT HPI: [...] the following (please check all that apply)? Calculus Tutor care Social History: Do you have any [...] Status: Partner: Name: Raheem Age: 29 Occupation: [employer] Gender: Male PAST MEDICAL HISTORY Diagnosis Date [...] discussed with the Patient or Patient's Authorized Forge Utility Worker. As applicable, any other physician, advance practice provider, medical student, or other health professional student that will be observing or involved in the sensitive examination for educational or training purposes was discussed with the Patient or Authorized Forge Utility Worker. The Patient or Authorized Forge Utility Worker has agreed to proceed with the sensitive [...] hemoglobin electrophoresis. Patient: Accepts Reviewed midwifery and crawler crane operator services that are available. 2) Screening: Hemoglobin [...] Kristin Pollock APRN.CNM documented in this encounter [facility] 08-28-2024 Instructions Kristin Pollock APRN.JR - 08/28/2024 12:14 PM EDT Please select the following link to access the [facility] Your Guide to a Healthy . [email or web address] de Ritual [place] Stork Mama Bear/Sprigs Try the vitamin B6 [...] nausea medication. Any further questions please call [phone] to speak to a nurse at the [facility] or send a Ceon message. Share with Women Nausea and Vomiting [...] carbohydrates, such as potatoes, noodles, rice, or toast.[employer] [email or web address] Do not lie [...] is right for you. There are both pkmq-ukw-npgpxoj and prescription medicines that can be used if your nausea and vomiting are severe. Vqxn-Hje-Aakbyqw Medication Fzli-xil-acnntlk medications for motion sickness should not be [...] after trying lifestyle and diet changes and jtxt-mqa-zufjeaf medications or you are vomiting frequently, you may need a prescription medication. There are several different prescription medicines that have been studied and found to be safe for you and your baby. Your health care provider can talk with you about these medicines. For More Information [employer] Nausea and Vomiting Helpline [email or web address] Low [...] acid. It is a common prescription and egvm-xty-yhchkki medication similar to other non-steroidal inflammatory drugs [...] MotherToBaby fact sheet Paternal Exposures at [email or web address]/fact-s heets/efxtawvu-xnstejosq-enftyu ncy/. documented in this encounter [facility] 11-09-2021 Instructions Kristin Pollock APRN.CNM - 11/09/2021 2:31 PM EDT Whole food Vital Ritual MamaBear Sprigs [place] Stork [place] [employer] Life Instead of folic acid, I like folate or methylated folate. At least 400mcg ACOG Screening Guidelines The following health screening schedule is recommended by the [employer] (ACOG). Some [...] your provider for a referral to a wardrobe specialty worker or medical weight manager enterprise content management who can help you reach your goals [...] salmon and sardines and vegetables, such as Polish cabbage, kale, and broccoli. Foods fortified with [...] acid, calcium carbonate is found in some dctn-get-igggslm antacid products, such as Tums and Rolaids [...] glands, joint and muscle pain, weakness and Guillain-Gloucester syndrome. documented in this encounter [facility] 11-09-2021 History of Presen t illness Narrative [...] OB History No obstetric history on file. 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 LMP: 06/18/2020 (Exact Date), Having periods Age at Menarche: Age at First : Age at Menopause: 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 Comments: Sexual Activity: No sexual activity [...] external genitalia normal, normal Bartholin's glands, urethra, [place]'s glands, no vulvar lesions, no cervical lesions, [...] Kristin Pollock APRN.CNM documented in this encounter [facility] Evaluation + Plan note Future Appointments Appointment Date:02/07/2022 09:30:00 AM Scheduled Provider:NATASHA VARGAS MD Location:[facility] Appointment Type:[facility] Evaluation note Diagnosis Encounter for gynecological examination (general) (routine) without abnormal findings- Primary Screening for cervical cancer Screening for malignant neoplasm of the cervix Screen for STD (sexually transmitted disease) Screening examination for venereal disease Encounter for preconception consultation Other procreative management counseling and advice control counseling General counseling for initiation of other contraceptive measures [facility] [place] [facility] Diagnosis with fetus of unknown gestational age (HCC)- Primary Generalized anxiety disorder Obsessive-compulsive disorder, unspecified type History of depression Personal history of other mental disorder Genetic screening Other genetic screening Encounter for supervision of normal first in first trimester ([facility]) Supervision of normal first 7 weeks gestation of ([facility]) state, incidental [facility] Diagnosis Generalized anxiety disorder- Primary Obsessive-compulsive disorder, unspecified type Encounter for supervision of normal first in first trimester ([facility]) Supervision of normal first History of depression Personal history of other mental disorder 12 weeks gestation of ([facility]) state, incidental [facility] [place] Diagnosis with fetus of unknown gestational age (HCC) [facility] Encounter for supervision of normal first in second trimester ([facility])- Primary Supervision of normal first 15 weeks gestation of ([facility]) state, incidental Rh negative state in antepartum period, second trimester ([facility]) History of depression Personal history of other mental disorder Generalized anxiety disorder [facility] [place] [facility] Diagnosis Rh negative state in antepartum period, second trimester ([facility])- Primary [facility] [place] [facility]* Diagnosis Encounter for supervision of normal first in second trimester ([facility])- Primary Supervision of normal first 19 weeks gestation of ([facility]) state, incidental [facility] Diagnosis Encounter for anatomic survey ([facility])- Primary Encounter for anatomic survey 19 weeks gestation of ([facility]) state, incidental Suspected anomaly not found [facility] Diagnosis Encounter for supervision of normal first in second trimester ([facility])- Primary Supervision of normal first History of depression Personal history of other mental disorder Generalized anxiety disorder Obsessive-compulsive disorder, unspecified type 20 weeks gestation of ([facility]) state, incidental RLQ abdominal pain Abdominal pain, right lower quadrant documented [facility] Diagnosis Screening for diabetes mellitus- Primary Encounter for supervision of normal first in second trimester ([facility]) Supervision of normal first Generalized anxiety disorder Obsessive-compulsive disorder, unspecified type 23 weeks gestation of ([facility]) state, incidental documented in this encounter [facility] course Narrative No data available for this section [facility] Hospital Discharge instructions No data available for this section [facility] Progress note No data available for this section [facility] Instructions * Patient Instructions* Arianna, Bety Salas [...] is a safe and effective decongestant 3. [place] Nasal [place] may offer relief of nasal and head [...] ear normal. Nose: Nose normal. Mouth/Throat: Lips: [place]. Mouth: Mucous membranes are moist. Pharynx: Oropharynx [...] - BENZONATATE 200 MG CAPSULE Bety Keller, CONSTRUCTION MATERIALS TESTER.PROCESS MOLD TECHNICIAN documented in this encounter Assessments Diagnosis Viral [...] or prosecute any alcohol or drug abuse patient.[facility] the event this information is protected by the Federal Confidentiality of Alcohol and Drug Abuse Patient Records regulations: The Federal rules restrict any use of the information to criminally investigate or prosecute any alcohol or drug abuse patient.[facility] the event this information is protected by the Federal Confidentiality of Alcohol and Drug Abuse Patient Records regulations: The Federal rules restrict any use of the information to criminally investigate or prosecute any alcohol or drug abuse patient.[facility] the event this information is protected by the Federal Confidentiality of Alcohol and Drug Abuse Patient Records regulations: The Federal rules restrict any use of the information to criminally investigate or prosecute any alcohol or drug abuse patient.[facility] the event this information is protected by the Federal Confidentiality of Alcohol and Drug Abuse Patient Records regulations: The Federal rules restrict any use of the information to criminally investigate or prosecute any alcohol or drug abuse patient.[facility] the event this information is protected by the Federal Confidentiality of Alcohol and Drug Abuse Patient Records regulations: The Federal rules restrict any use of the information to criminally investigate or prosecute any alcohol or drug abuse patient.[facility] the event this information is protected by the Federal Confidentiality of Alcohol and Drug Abuse Patient Records regulations: The Federal rules restrict any use of the information to criminally investigate or prosecute any alcohol or drug abuse patient.[facility] the event this information is protected by the Federal Confidentiality of Alcohol and Drug Abuse Patient Records regulations: The Federal rules restrict any use of the information to criminally investigate or prosecute any alcohol or drug abuse patient.[facility] the event this information is protected by the Federal Confidentiality of Alcohol and Drug Abuse Patient Records regulations: The Federal rules restrict any use of the information to criminally investigate or prosecute any alcohol or drug abuse patient.[facility] the event this information is protected by the Federal Confidentiality of Alcohol and Drug Abuse Patient Records regulations: The Federal rules restrict any use of the information to criminally investigate or prosecute any alcohol or drug abuse patient.[facility] the event this information is protected by the Federal Confidentiality of Alcohol and Drug Abuse Patient Records regulations: The Federal rules restrict any use of the information to criminally investigate or prosecute any alcohol or drug abuse patient.[facility] the event this information is protected by the Federal Confidentiality of Alcohol and Drug Abuse Patient Records regulations: The Federal rules restrict any use of the information to criminally investigate or prosecute any alcohol or drug abuse patient.[facility] the event this information is protected by the Federal Confidentiality of Alcohol and Drug Abuse Patient Records regulations: The Federal rules restrict any use of the information to criminally investigate or prosecute any alcohol or drug abuse patient.[facility] the event this information is protected by the Federal Confidentiality of Alcohol and Drug Abuse Patient Records regulations: The Federal rules restrict any use of the information to criminally investigate or prosecute any alcohol or drug abuse patient.[facility] the event this information is protected by the Federal Confidentiality of Alcohol and Drug Abuse Patient Records regulations: The Federal rules restrict any use of the information to criminally investigate or prosecute any alcohol or drug abuse patient.[facility] the event this information is protected by the Federal Confidentiality of Alcohol and Drug Abuse Patient Records regulations: The Federal rules restrict any use of the information to criminally investigate or prosecute any alcohol or drug abuse patient.[facility] the event this information is protected by the Federal Confidentiality of Alcohol and Drug Abuse Patient Records regulations: The Federal rules restrict any use of the information to criminally investigate or prosecute any alcohol or drug abuse patient.[facility] Reason for Visit (unrecogniz ed section and [...] GESTATION Kristin Pollock APRN.JR [address] [place] [address] Phone: tel: fax: [facility] [address] [place] [address] Referral ID Status Reason Start Date Expiration Date V isits Requested Visits Authorized [id number] Closed Auto-Generate d Referral 08/31/2024 08/31/2025 1 1 Reason Onset Date Comments Care 10/26/2024 Reason Onset Date Comments Care 11/23/2024 Referral ID Status Reason Start Date Expiration Date V isits Requested Visits Authorized [id number] Closed Auto-Generate d Referral 08/31/2024 08/31/2025 1 1 Reason Comments Pelvic Pain Reason Comments Breast Pump RX Reason Onset Date Comments Care 11/30/2024 Reason Onset Date Comments Care 12/21/2024 Care Team (unrecognized sect ion and content) Care Team Personnel Name: NATASHA VARGAS MD Position: P4 Physician - Primary Care Med Service: Active Provider Member Role: Primary Care Physician Address: Address: [address] [place] [id number]- Care Team Related Persons Name: RAHEEM NORRIS Address: Home [address] [place], [place] [id number] [place] Address: [facility] [id number] [place] [phone] INFORMATION SOURCE (unrecogn ized section and content) DATE CREATED AUTHOR [facility]/16/2022 [facility] DATE CREATED AUTHOR AUTHOR'S ORGANIZ ATION 02/19/2025 [facility] FOR RECORDS PERTAINING TO PATIENTS WHO ARE [...] BE BASED ON THE PRIMARY CLINICAL RECORDS. [employer] provides no warranty or guarantee of the accuracy or completeness of information in this document.
[2025-04-14 15:36] VITALS: BMI 32.5
[2025-04-14 15:52] VITALS: BP 105/57; PULSE 78
[2025-04-14] MEDS: Lactated Ringers 1,000 ML 999 ML IV (16:39)
[2025-04-14 17:50] VITALS: PULSE 91; O2SAT 99
[2025-04-14 17:51] VITALS: BP 109/58; PULSE 77; RESP 16; TEMP 36.8; O2SAT 99
[2025-04-14 20:59] VITALS: BP 114/71; PULSE 86; RESP 17; TEMP 36.6
--- NOTE | 2025-04-15 05:32 | OB.TRI.NOTE ---
HPI - General HPI Narrative GENIE MORRIS, is a 29 F who presents with contractions. She denies any loss of fluid or vaginal bleeding. Positive movements. Maternal Data Information LEONIDAS Calculator Estimated Delivery Date Method Current WG Current Estimate 04/14/25 Manual 40w 1d PFSH PFSH Medical History (Updated 04/15/25 @ 05:34 by Johanna Patten CNM) Anxiety Home Medications ?Medication ?Instructions ?Recorded ?Last Taken ?Type NK 04/14/25 Unknown History Allergy/AdvReac Type Severity Reaction Status Date / Time No Known Allergies Allergy Verified 04/14/25 16:17 Surgical History (Updated 04/14/25 @ 16:33 by Osiris Ambrose) History of surgery ROS Eyes Eyes: Denies blurry vision Cardiovascular Cardiovascular: Reports none; Denies chest pain at rest, chest pain with activity or dizziness Respiratory/Chest Respiratory/Chest: Denies cough or dyspnea Gastrointestinal Gastrointestinal: Reports none and other; Denies diarrhea or vomiting Genitourinary Genitourinary: Denies dysuria Musculoskeletal Musculoskeletal: Reports none Integumentary Integumentary: Reports none; Denies rash Neurologic Neurologic: Denies dizziness, headache(s) or other visual disturbances Psychiatric Psychiatric: Reports none Physical Exam Const alert and no apparent distress General Appearance: cooperative Orientation / Consciousness: awake Exam Limitations: no limitations HEENT normocephalic Eyes General Eye: normal appearance of both eyes Neck full ROM Chest inspection of chest normal Resp normal respiratory effort and normal air movement Effort and Inspection: symmetric chest movement Auscultation: clear to auscultation bilaterally Cardio regular rate GI soft to palpation, non-tender and non-distended Inspection: and other Back/Spine normal ROM Extremity full ROM, normal capillary refill and no calf tenderness Skin no rashes or lesions noted Neuro oriented x3 and CN's II-XII intact bilaterally Psych mental status grossly normal NST FHR Rate Baby A Baseline: 130 Variability:: Moderate Accelerations:: 15 x 15 Decelerations:: None NST Reactive:: Yes FHR Category:: Category I Uterine Activity:: Irregular Assessment & Plan (1) 40 weeks gestation of : (2) Irregular contractions: (3) History of anxiety: (4) History of depression: PLAN: Plan CE 3cm/70/-2 Patient stayed for extended monitoring and cervical exam unchanged after 4 hours Patient desires spontaneous labor with no augmentation May desire water D/c home with follow up in office Labor precautions and timing of contractions reviewed Dr. Baker notified of A&P
== END 2025-04-14 22:55 | disposition home or self-care (01) ==
LOC: WP 15:21 → WPOUT 15:21
PROVIDERS: Referring Provider Advanced Practice Midwife; Visit Provider Advanced Practice Midwife
DX: O47.1 False labor at or after 37 completed weeks of gestation (principal); Z3A.40 40 weeks gestation of pregnancy; Z86.59 Personal history of other mental and behavioral disorders
CPT/HCPCS: 96360; 36415; 59025; 59050; 99221; G0378